=== PATIENT | male | born 1965 | race Caucasian/White ===

== ENCOUNTER 2020-02-17 11:19 | Emergency (ER) | payer OTHER, SELFPAY ==
--- NOTE | ~2020-02-17 | CT_ITS ---
EXAMINATION: CTA chest PE protocol DATE: 02/17/2020 12:25 INDICATION: Chest pain. Recent deep venous thrombosis. TECHNIQUE: Computed tomography angiography (CTA) of the chest was performed with 100 mL Omnipaque-350 intravenous contrast timed to evaluate the pulmonary arteries. Coronal maximum intensity projection 3D-reconstructions were created by the technologist. Automated exposure control and iterative reconst ruction technique were employed. Exam dose: 981.01 mGy-cm total exam DLP. COMPARISON: None. FINDINGS: There is diagnostic contrast enhancement of the pulmonary arteries and no evidence of pulmo nary embolism No hilar or mediastinal mass lesion or lymphadenopathy. No thoracic aortic aneurysm or dissection is evident. Normal heart size. No pericardial or pleural effusion. No pulmonary infiltrate or consolidation or pulmonary mass lesion. Incidentally noted are at least 2 calcified faceted up to 8.5 mm gallstones. No gallbladder wall thic kening or distention or pericholecystic fluid or inflammation is noted. No bile duct dilatation is ev ident. Included upper abdominal structures are otherwise unremarkable. Prominent bilateral osteoarthritic changes at the glenohumeral joints. Degenerative spurring of the cervical and thoracic spine. IMPRESSION: No evidence of pulmonary embolism Cholelithiasis Reviewed, dictated and finalized at [facility]. Reviewed, dictated and finalized at [facility].
[2020-02-17 11:26] VITALS: BP 153/104; PULSE 87; RESP 18; O2SAT 97
--- NOTE | 2020-02-17 11:26 | ECG_ITS ---
Measurements Intervals [place] Rate: 86 P: 42 MA: 154 QRS: 54 QRSD: 88 T: 28 QT: 355 QTc: 425 Interpretive Statements SINUS RHYTHM BASELINE ARTIFACT- I, III, AVR, AVL NORMAL ECG Electronically Signed On 02-17-2020 12:06:16 CDT by Chaz Camacho D.O.
[2020-02-17 11:44] LABS: Basophils Absolute Auto 0.1 K/mm3 (0.0-0.1); Basophils Percent Auto 0.9 % (0.2-1.2); Eosinophils Absolute Auto 0.2 K/mm3 (0-0.3); Eosinophils Percent Auto 2.2 % (0-4.4); Hematocrit 47.9 % (42.0-52.0); Hemoglobin 15.5 g/dL (14.0-18.0); Immature Granulocyte Absolute 0.06 K/mm3 (0.00-0.031); Immature Granulocyte Percent A 0.6 % (0-0.5); Lymphocytes Absolute Auto 4.51 K/mm3 (0.9-3.2); Lymphocytes Percent Auto 42.1 % (18.3-44.2); Mean Corpuscular HGB Conc 32.4 g/dl (32-36); Mean Corpuscular Hemoglobin 29.1 pg (26-34); Mean Corpuscular Volume 89.9 fl (80-100); Mean Platelet Volume 10.6 fl (7.4-10.4); Monocytes Absolute Auto 0.8 K/mm3 (0.1-0.6); Monocytes Percent Auto 7.1 % (2.6-8.5); Neutrophils Absolute Auto 5.1 K/mm3 (1.3-6.7); Neutrophils Percent Auto 47.1 % (45.5-73.1); Platelet Count Result 325 k/mm3 (150-375); Red Blood Count 5.33 M/mm3 (4.6-6.20); Red Cell Distribution Width 13.9 % (11.5-14.5); White Blood Count 10.7 K/mm3 (4.5-10.0)
--- NOTE | 2020-02-17 11:46 | ED.CHESTPAIN ---
HPI - Chest Pain General Chief Complaint: Chest Pain Stated Complaint: SOB - chest tightness Time Seen by Provider: 02/17/20 11:38 History of Present Illness HPI narrative: Patient is a 55-year-old male who presents the ER with right-sided chest pain for the last 2 days. It sharp and constant. Radiates down to the right arm. Occasionally radiates to the right back. Has history of DVT. He is no longer on Xarelto as he completed the full therapy. He is not having any lower extremity swelling or calf pain. No exertional component to the chest pain. It actually improves if he takes a deep breath. No runny nose/sore throat/productive cough. No known mechanism of injury. Related Data Home Medications Medication Instructions Recorded Confirmed atorvastatin 02/17/20 Allergies Allergy/AdvReac Type Severity Reaction Status Date / Time morphine AdvReac Unknown Nausea Verified 02/17/20 11:30 Review of Systems Review of Systems: All systems reviewed & are unremarkable except as noted in HPI and below Constitutional: Constitutional: Denies chills and Denies fever(s) ENT: Denies nasal congestion and Denies sore throat Cardiovascular: Cardiovascular: Reports chest pain, Denies rapid heart rate and Reports radiating jaw, neck or arm pain Respiratory: Respiratory: Denies cough, Denies dyspnea and Denies wheezing Gastrointestinal: Gastrointestinal: Denies abdominal pain, Denies nausea and Denies vomiting Musculoskeletal: Musculoskeletal: Reports back pain and Denies muscle cramps PMFSH Past Medical History Medical History (Updated 02/17/20 @ 14:25 by Jareth Mae MD) Asthma Carpal tunnel syndrome DVT (deep venous thrombosis) Surgical History Surgical History (Updated 02/17/20 @ 14:20 by Jareth Mae MD) History of carpal tunnel release Social History Social History Smoking status: Light tobacco smoker Alcohol intake: current Exam Narrative: Exam Narrative: GENERAL: Well-appearing, well-nourished, and in no acute distress. HEAD: Normocephalic, atraumatic. ENT: Mucous membranes moist. CHEST: Clear to auscultation. No respiratory distress. Moderate tenderness right anterior chest wall midclavicular line. HEART: Regular rate and rhythm. Normal peripheral pulses. ABDOMEN: Soft, nontender, nondistended. EXTREMITIES: Normal range of motion. No edema. SKIN: Warm, dry, no rash. NEURO: Alert and oriented x3. Course Course Emergency Course: Patient informed of results. Mild improvement with Toradol. Troponin negative. No PE. Vital Signs Vital signs: Vital Signs Pulse Rate 87 02/17/20 11:26 Respiratory Rate 18 02/17/20 11:26 Blood Pressure 153/104 H 02/17/20 11:26 Pulse Oximetry 97 02/17/20 11:26 Pulse Rate 73 02/17/20 12:43 Respiratory Rate 16 02/17/20 12:43 Blood Pressure 144/86 H 02/17/20 12:43 Pulse Oximetry 98 02/17/20 12:43 MDM - Chest Pain Lab Data Result diagrams: 02/17/20 11:37 02/17/20 11:37 Labs: Lab Results 02/17/20 02/17/20 02/17/20 Range/Units 11:37 11:37 11:37 WBC 10.7 H (4.5-10.0) K/mm3 RBC 5.33 (4.6-6.20) M/mm3 Hgb 15.5 (14.0-18.0) g/dL Hct 47.9 (42.0-52.0) % MCV 89.9 (80-100) fl MCH 29.1 (26-34) pg MCHC 32.4 (32-36) g/dl RDW 13.9 (11.5-14.5) % Plt Count 325 (150-375) k/mm3 MPV 10.6 H (7.4-10.4) fl Immature Gran % (Auto) 0.6 H (0-0.5) % Neut % (Auto) 47.1 (45.5-73.1) % Lymph % (Auto) 42.1 (18.3-44.2) % [place] % (Auto) 7.1 (2.6-8.5) % Eos % (Auto) 2.2 (0-4.4) % Baso % (Auto) 0.9 (0.2-1.2) % Lymph # (Auto) 4.51 H (0.9-3.2) K/mm3 [place] # (Auto) 0.8 H (0.1-0.6) K/mm3 Eos # (Auto) 0.2 (0-0.3) K/mm3 Baso # (Auto) 0.1 (0.0-0.1) K/mm3 Abs Immat Gran (auto) 0.06 H (0.00-0.031) K/mm3 Absolute Neuts (auto) 5.1 (1.3-6.7) K/mm3 Absolute Nucleated RBC 0.0 (0.0-0.012) K/mm3 Nucleated RBC % 0
[2020-02-17 11:55] LABS: Blood Urea Nitrogen 21 mg/dL (9-20); Calcium 9.2 mg/dL (8.4-10.2); Carbon Dioxide 23 mmol/L (22-30); Chloride 107 mmol/L (98-107); Estimated CRCL calculation 114 ml/min; Estimated Glomerular Filt Rate > 60; Glucose 109 mg/dL (75-110); Sodium 139 mmol/L (137-145)
[2020-02-17 12:02] LABS: INR 0.9; Prothrombin Time 11.5 Seconds (11.1-14.7)
[2020-02-17 12:03] LABS: Partial Thromboplastin Time 25.4 SECONDS (22.3-36.8)
[2020-02-17 12:07] LABS: Troponin I < 0.012 ng/mL (0.000-0.034)
[2020-02-17 12:43] VITALS: BP 144/86; PULSE 73; RESP 16; O2SAT 98
[2020-02-17] MEDS: KETOROLAC 30 MG/ML VIAL (*BKC) IV PUSH (13:24)
[2020-02-17 14:33] VITALS: BP 171/97; PULSE 62; RESP 16; TEMP 36.4; O2SAT 100
== END 2020-02-17 14:41 | disposition home or self-care (01) ==
PROVIDERS: Emergency Provider Emergency Medicine; PCP Family Medicine
DX: R07.89 Other chest pain (principal); Z86.718 Personal history of other venous thrombosis and embolism; J45.909 Unspecified asthma, uncomplicated; F17.200 Nicotine dependence, unspecified, uncomplicated
CPT/HCPCS: 36415; 71275; 80048; 84484; 85025; 85610; 85730; 93005; 96374; 99284; J1885; Q9967

== ENCOUNTER 2020-02-27 07:31 | Outpatient (CLI) | payer OTHER, SELFPAY ==
--- NOTE | ~2020-02-27 | US_ITS ---
EXAMINATION: US right upper quadrant DATE: 02/27/2020 08:32 INDICATION: Cholecystitis TECHNIQUE: Multiple grayscale and Doppler ultrasound images of the abdomen were obtained. COMPARISON: 03/14/2019 FINDINGS: The pancreatic head and body are normal in appearance. The pancreatic tail is not visualized. Liver has normal contour, with a smooth surface. There is increased parenchymal echogenicity and coarsened echotexture consistent with diffuse hepatic steatosis. No liver lesion identified. No intrahepatic b iliary duct dilation suspected. Portal venous flow was seen in the hepatopetal, normal direction and has normal Doppler waveform. Visualized proximal inferior vena cava is normal. The gallbladder is nor mal in appearance. There are mobile shadowing gallstones in the dependent gallbladder. The common cristino e duct measures 8 mm, which is mildly dilated. Sonographic Teixeira sign was reported as positive by e practice professional. Visualized portion of the right kidney demonstrates normal contour and echogenicity wi th no hydronephrosis. IMPRESSION: 1. Cholelithiasis with positive Teixeira sign but normal-appearing gallbladder which is equivocal for a cute cholecystitis. Could consider HIDA scan for further evaluation. 2. Mildly dilated common bile duct which measures 8 mm which is new since prior CT. Could consider MR CP to assess for obstructing stone or mass at the nonvisualized distal common bile duct. 3. Diffuse hepatic steatosis. Reviewed, dictated and finalized at [facility]. IMPRESSION: 1. Cholelithiasis with positive Teixeira sign but normal-appearing gallbladder wh ich is equivocal for acute cholecystitis. Could consider HIDA scan for further evaluation. 2. Mildly dilated common bile duct which measures 8 mm which is new since prior CT. Could consider MRCP to assess for obstructing stone or mass at the nonvisu alized distal common bile duct. 3. Diffuse hepatic steatosis.
== END 2020-02-27 07:32 | disposition home or self-care (01) ==
LOC: ANHIMG 07:35
PROVIDERS: PCP Family Medicine; Visit Provider Physician Assistant
DX: K81.9 Cholecystitis, unspecified (principal); K80.20 Calculus of gallbladder without cholecystitis without obstruction; K76.0 Fatty (change of) liver, not elsewhere classified
CPT/HCPCS: 76705

== ENCOUNTER 2020-02-28 11:46 | Outpatient (CLI) | payer OTHER, SELFPAY ==
[2020-02-28 12:11] LABS: Alanine Aminotransferase 23 U/L (4-50); Albumin Level 4.6 g/dL (3.5-5.1); Alkaline Phosphatase 97 U/L (38-126); Aspartate Amino Transferase 27 U/L (17-59); Bilirubin,Total 0.9 mg/dL (0.2-1.3); Blood Urea Nitrogen 23 mg/dL (9-20); Calcium 9.7 mg/dL (8.4-10.2); Carbon Dioxide 26 mmol/L (22-30); Chloride 105 mmol/L (98-107); Estimated Glomerular Filt Rate > 60; Glucose 140 mg/dL (75-110); Lipase 62 U/L (23-300); Potassium 4.3 mmol/L (3.4-5.0); Sodium 138 mmol/L (137-145)
== END 2020-02-28 11:47 | disposition home or self-care (01) ==
PROVIDERS: PCP Family Medicine; Visit Provider Surgery
DX: K80.20 Calculus of gallbladder without cholecystitis without obstruction (principal)
CPT/HCPCS: 36415; 80053; 83690

== ENCOUNTER 2020-03-05 01:29 | Day surgery (SDC) | payer OTHER, SELFPAY ==
[2020-03-03 16:04] VITALS: BMI 41.5
[2020-03-05] VITALS (8 sets, daily range): BP systolic 127–156; BP diastolic 75–98; PULSE 63–74; RESP 14–18; TEMP 36.2–36.6; O2SAT 96–100
[2020-03-05] MEDS: LACTATED RINGERS 1,000 ML 30 ML IV CONT ×2 (10:30→13:47)
[2020-03-05 11:00] LABS: Amylase 60 U/L (30-110)
--- NOTE | 2020-03-05 11:12 | P.PNAN_ITS ---
Anes - Initial Pre Proc Eval Procedure: Operation Date: 03/05/20 12:00 Proposed Procedures p Laparoscopic Cholecystectomy with Intra Operative Cholangiograms, Possible Open - Gianni Santoyo MD Date/Time: 03/05/20 11:12 Surgeon: Gianni Santoyo MD Pre Op Diagnosis: chronic cholecystitis with cholelithiasis Patient Data Age: 55 Gender: M Height: 6 ft 1 in Weight: 142 kg Last Vital Signs Temp 36.6 C 03/05/20 11:04 Pulse 74 03/05/20 11:04 Resp 16 03/05/20 11:04 BP 132/83 03/05/20 11:04 Pulse Ox 96 03/05/20 11:04 Allergies Allergy/AdvReac Type Severity Reaction Status Date / Time morphine AdvReac Unknown Nausea Verified 03/04/20 09:01 Home Medications Medication Instructions Recorded Confirmed Type atorvastatin [Lipitor] 20 mg PO DAILY 02/17/20 03/04/20 History hydrocodone 7.5 mg-acetaminophen 1 tablet PO Q6H PRN #8 tablet 03/03/20 03/03/20 Rx 325 mg tablet Laboratory Tests 03/05/20 10:42 Amylase 60 U/L U/L (30-110) Patient hx anesthesia problems: none Family hx anesthesia problems: none PMFSH Past Medical History Medical History Asthma Carpal tunnel syndrome DVT (deep venous thrombosis) High cholesterol History of blood clots Surgical History Surgical History History of carpal tunnel release [place] teeth extracted Family History Family History Father Heart disease Mother Heart disease Sibling Cerebrovascular accident Social History Social History Smoking status: Former smoker Alcohol intake: current Substance use: never Gender identity (if verbalized by the patient): Male Anes - Eval Final PreProcedure Day of Procedure 03/05/20 11:12 Patient weight: morbidly obese Heart: regular rate and rhythm Lungs: clear to auscultation Airway: Mallampati scale class II Neurological: alert and oriented Last oral intake: >/= 8 hours ASA classification: III Anesthetic plan: proceed Anesthesia type and monitoring: general ETT and standard monitoring Informed Consent: The patient's anesthetic plan and its attendant risks and benefits were discussed with the patient/family/POA. Questions were solicited and answers provided to the satisfaction of the patient/family/POA.
--- NOTE | 2020-03-05 11:56 | WPDHPUPDATE1 ---
History and Physical Update Update Date/Time: 03/05/20 11:56 History and Physical has been reviewed, including an updated exam of the patient. There are NO changes in the patient's condition. Risks, benefits, and alternatives have been discussed and questions answered. Patient agrees to proceed with procedure.
[2020-03-05] MEDS: ceFAZolin 3 GM/D5W 100 ML 100 ML IVPB (12:37)
[2020-03-05] MEDS: BUPIVACAINE/EPINEPHRINE 0.5% 30 ML VIAL INFILTRATE (12:38)
--- NOTE | 2020-03-05 13:41 | P.OP_ITS ---
Procedure Note - Detailed Date of procedure: 03/05/20 Pre-op diagnosis: chronic cholecystitis with cholelithiasis Procedure performed: Laparoscopic cholecystectomy. Description of procedure: Procedure Details: Patient was seen preoperatively in the holding area and risks, benefits and alternatives confirmed. Patient was taken to the operating room and general anesthesia was induced. A time out was then preformed with the surgery team confirming patient and site of surgery. The abdomen was prepped and draped in the usual sterile fashion. Incision was made just below the umbilicus. Two stay sutures of O- Vicryl were used to elevate the mid-line fascia beneath the umbilicus and a small incision was made under direct vision. The peritoneum was entered. The 12 mm [place] cannula was introduced under direct vision. First under low flow and then under high flow the abdomen was insufflated with carbon dioxide never exceeding a pressure of 14. Three 5 mm trocars were then introduced under direct vision. The following trocars were introduced under direct vision: a 5 mm in the epigastrium and two 5 mm trocars along the right costal margin. There were a few adhesions of the omentum to the inferior side of the gallbladder that were taken down with blunt and sharp dissection. The gall bladder was grasped and the cystic duct and artery were dissected free and clipped with an 5 mm endo-clip air saw operator. Careful dissection revealed the window of safety and only 2 structures the cystic duct and cystic artery connecting the gallbladder to the more medial structures. The cystic duct was then transected. The cystic artery was also clipped x3 and transected at this point. The gall bladder was removed using electrocautery and then removed using a large 10 mm grasper via the umbilical incision. The trocars were removed visualizing hemostasis and the remaining gas evacuated. The large trocar site at the umbilicus was closed with an 0 vicryl figure of 8 suture. The 2 stay sutures mentioned above on either side of the fascia were also tied together to help approximate this midline fascia. Further local anesthetic was placed into each incision for postop pain control. The skin incisions were closed with a subcuticular of 4-0 Monocryl. Surgical glue then was applied to all the incisions. Patient tolerated the procedure well was taken to the recovery room in good condition. Anesthesia: GETA Surgeon: Gianni Santoyo MD Chief Wheelage Clerk: SILVIO Quan, OR speech language pathology assistant Estimated blood loss (mL): 10 Drains: No Packing: No Pathology: yes (The gallbladder) Complications: No immediate complications Condition: stable Disposition: PACU Findings: A few adhesions of the omentum to the gallbladder. Otherwise no severe inflammation.
[2020-03-05] MEDS: ONDANSETRON INJ 4 MG/2 ML VIAL IV PUSH (13:55)
[2020-03-05] MEDS: DEXAMETHASONE SOD PHOS INJ 4 MG/ML VIAL 12 MG IV PUSH (14:32)
--- NOTE | 2020-03-05 14:48 | SUR.PHASEI ---
1449 FRIEND MK EDMONDS.
== END 2020-03-05 15:54 | disposition home or self-care (01) ==
PROVIDERS: PCP Family Medicine; Visit Provider Surgery
PROC: 0FT44ZZ Resection of Gallbladder, Percutaneous Endoscopic Approach (ICD-10-PCS; CPT 47562; principal; 2020-03-05 12:00)
DX: K80.10 Calculus of gallbladder with chronic cholecystitis without obstruction (principal); E78.00 Pure hypercholesterolemia, unspecified; Z86.718 Personal history of other venous thrombosis and embolism; Z87.891 Personal history of nicotine dependence; E66.01 Morbid (severe) obesity due to excess calories; Z68.41 Body mass index [BMI] 40.0-44.9, adult
CPT/HCPCS: 47562; 36415; 82150; 88304; J0131; J0330; J0690; J1100; J1170; J1200; J2250; J2405; J2704; J3010; J7030; J7120

== ENCOUNTER 2020-07-23 12:30 | Outpatient (RCR) | payer OTHER, SELFPAY ==
--- NOTE | 2020-05-27 11:36 | PTOPEVAL ---
Thank you for referring Catalina Springer to [facility]. Please review, sign, date and return this plan of care HORACIO. Mr. Springer was evaluated today for OP physical therapy. Pt to be seen 2x week for 6 weeks. I agree with and certify that the following plan of care is medically necessary. Referring Physician Date Admitting Provider: Attending Provider: Lg Wright, MD Referring Provider: *PT Outpatient Evaluation Start: 05/27/20 10:28 Freq: Status: Active Protocol: Document 05/27/20 10:28 TLM (Rec: 05/27/20 11:13 TLM [email or web address]) Therapy Assessment Status Assessment Status Assessment Status Evaluation Outpatient Past Medical History Past Medical History No Past Medical/Surgical History Patient/Family Denies Significant Past Medical/ Surgical History Source of Past Medical History Patient Cardiovascular History Hx Hypercholesterolemia Yes Respiratory History Gastrointestinal History Hx Gastroesophageal Reflux Disease Yes Genitourinary History Hx Genitourinary Disorders No Significant History Musculoskeletal History Hx Orthopedic Surgery Yes: LEFT CTR Evaluation Information Problem Diagnosis s/p R TKA Onset 04/28/20 Additional Evaluation Detail Pt returned to MD for follow up on 05/26/20. States everything looked good. Had 3 visits of HH, last visit 2 weeks ago. Was using a P/AROM bike when at home for 3 weeks. Stopped using cane a week ago . Released to drive yesterday. Weaning himself off of pain medication. Reports difficulty and pain with L LE as well and plans to have surgery for it once he has finished rehab for R TKA. Subjective Information Pt reports difficulty with Query Text:As Reported By Patient/ housework, hobbies, ambulating Family , putting on shoes/socks, lifting objects from the floor , getting in/out of car/bed, standing greater than 1 hour, transitioning sit<>stand, and navigating stairs. Diagnostic Tests X-Rays For This Problem Yes Prior Level of Function Home Setting Home Type House,Multiple Levels Environmental Barriers Railing, Ascend Right,Stairs, 2-4 Living Situation With Rela
--- NOTE | 2020-06-22 13:24 | PTOPEVAL ---
Thank you for referring Catalina Springer to [facility].? Pt has been seen for 8 therapy visits to address impairments related to s/p right TKR. He is progressing towards his therapy goals. The patient is scheduled to be seen for therapy? 2 x/week for 3-4 weeks. Please review, sign, date and return this plan of care HORACIO. I agree with and certify that the following plan of care is medically necessary. Referring Physician Date Admitting Provider: Attending Provider: Lg Wright, Physical Therapy Progress Note *PT Outpatient Evaluation Start: 05/27/20 10:28 Freq: Status: Active Protocol: Document 06/22/20 10:58 CAP (Rec: 06/22/20 11:56 TAHMINA [email or web address]) Therapy Assessment Status Assessment Status Assessment Status Re-evaluation Outpatient Past Medical History Past Medical History No Past Medical/Surgical History Patient/Family Denies Significant Past Medical/ Surgical History Source of Past Medical History Patient Evaluation Information Problem Diagnosis s/p R TKA Onset 04/28/20 Additional Evaluation Detail Pt returned to MD for follow up on 05/26/20. States everything looked good. Had 3 visits of , last visit 2 weeks ago. Was using a P/AROM bike when at home for 3 weeks. Reports difficulty and pain with L LE as well and plans to have surgery for it once he has finished rehab for R TKA. Subjective Information Reports his heels are painful Query Text:As Reported By Patient/ due to bone spurs. He reports Family improved performance with walking, donning shoes and socks and negotiating steps. States his left knee and heel are more painful than his right knee. Reports improved ability with getting in/out of car/bed. He is consistently performing his HEP 4-5x/wk. Pain Assessment Timing of Pain Assessment Timing of Pain Assessment Re-assessment Pain Scale Pain Scale Used Numeric (1 - 10) Self Report Pain Assessment Right Knee(s) Reported Pain Level 2 Pain Description Aching,Dull Pain Frequency Continuous Greatest Pain Intensity 3 Pain Relief Interventions Used By Ice Patient Pain Score Pain Score 2: Self Report
--- NOTE | 2020-07-08 11:58 | PTOPEVAL ---
Thank you for referring Catalina Springer to [facility].? The patient is scheduled to be seen for therapy? 2 x/week for 2 weeks. Please review, sign, date and return this plan of care HORACIO. I agree with and certify that the following plan of care is medically necessary. Referring Physician Date Attending Provider: Lg Wright, MD Referring Provider: Physical Therapy Progress Note *PT Outpatient Evaluation Start: 05/27/20 10:28 Freq: Status: Active Protocol: Document 07/08/20 11:00 TAHMINA (Rec: 07/08/20 11:47 TAHMINA [email or web address]) Therapy Assessment Status Assessment Status Assessment Status Re-evaluation Outpatient Past Medical History Past Medical History No Past Medical/Surgical History Patient/Family Denies Significant Past Medical/ Surgical History Source of Past Medical History Patient Evaluation Information Problem Diagnosis s/p R TKA Onset 04/28/20 Subjective Information He reports improved Query Text:As Reported By Patient/ performance with walking, Family donning shoes and socks and negotiating steps. States his left knee and heel are more painful than his right knee. Denies any problems with right LE for getting in/out of car/ bed. Reports more difficulty with daily task due to left knee. He is consistently performing his HEP 4-5x/wk. Pain Assessment Timing of Pain Assessment Timing of Pain Assessment Re-assessment Pain Scale Pain Scale Used Numeric (1 - 10) Self Report Pain Assessment Right Knee(s) Reported Pain Level 1 Pain Description Tightness Lowest Pain Intensity 1 Greatest Pain Intensity 3 Pain Aggravating Factors Stair Climbing Pain Score Pain Score 1: Self Report Lower Extremity Range of Motion Knee Range of Motion Right Knee Flexion Range of Motion - Active 98 Knee Extension Range of Motion - Active -7 Query Text: Knee Range of Motion Limitations Edema,Pain,Soft Tissue Restriction Knee Range of Motion Comments measured in supine Lower Extremity Muscle Strength Testing Hip Strength Right Hip Flexion Strength 5 Normal Hip Extension Strength 5 Normal Hip Abduction Strength 4- Good - Knee Strength Right Knee Flexion Strength 4 Good Knee Extension Strength 5 Normal Muscle Length Testing Muscle Length Testing Two-[place]
--- NOTE | 2020-07-14 12:51 | PCPTNOTE ---
Patient called & cancelled scheduled appointment this date due to hurting his back.
--- NOTE | 2020-07-23 14:37 | PTOPEVAL ---
Thank you for referring Catalina Springer to [facility] [place].? Pt has reached maximal potential with skilled therapy services to address his right knee impairments. Will hold chart open for 30 days for possible return to outpatient therapy following his left knee surgery. Please review, sign, date and return this plan of care HORACIO. I agree with and certify that the following plan of care is medically necessary. Referring Physician Date Attending Provider: Lg Wright, MD Referring Provider: *PT Outpatient Evaluation Start: 05/27/20 10:28 Freq: Status: Active Protocol: Document 07/23/20 12:27 CAP (Rec: 07/23/20 13:23 CAP [email or web address]) Therapy Assessment Status Assessment Status Assessment Status Re-evaluation/ Discharge Note Outpatient Past Medical History Past Medical History No Past Medical/Surgical History Patient/Family Denies Significant Past Medical/ Surgical History Source of Past Medical History Patient Evaluation Information Problem Diagnosis s/p R TKA Onset 04/28/20 Additional Evaluation Detail Pt returned to MD for follow up on 05/26/20. States everything looked good. Had 3 visits of HH, last visit 2 weeks ago. Was using a P/AROM bike when at home for 3 weeks. Reports difficulty and pain with L LE as well and plans to have surgery for it once he has finished rehab for R TKA. Subjective Information He reports only minimal pain Query Text:As Reported By Patient/ of the right knee that never Family completely goes to 0/10. He denies problems with walking, ADL's or steps. He has pain during therapy when attempting to push the knee range. ing steps. States his left knee and right heel are more painful than his right knee. He is consistently performing his HEP 4-5x/wk. Pain Assessment Timing of Pain Assessment Timing of Pain Assessment Re-assessment Pain Scale Pain Scale Used Numeric (1 - 10) Self Report Pain Assessment Right Knee(s) Reported Pain Level 1 Pain Description Tightness Lowest Pain Intensity 1 Greatest Pain Intensity 3 Pain Score Pain Score 1: Self Report Lower Extremity Range of Motion Knee Range of Motion Left Knee Flexion Range of Motion
--- NOTE | 2020-08-24 08:14 | PCPTNOTE ---
This treatment is being continued on visit number 1 on [id number]. Please see documentation on both accounts to view progress. Completed interventions, outcomes, and problems have been marked as Inactive to facilitate the copying of the Care plan routine for recurring accounts.
== END 2020-08-23 13:50 | disposition home or self-care (01) ==
LOC: ANHPT 12:30
PROVIDERS: PCP Family Medicine; Visit Provider Orthopaedic Surgery Adult Reconstructive Orthopaedic Surgery
DX: Z47.1 Aftercare following joint replacement surgery (principal); Z96.651 Presence of right artificial knee joint
CPT/HCPCS: 97110; 97112; 97140; 97161; 97530

== ENCOUNTER 2020-11-12 10:00 | Outpatient (RCR) | payer OTHER, SELFPAY ==
--- NOTE | 2020-09-17 10:08 | PTOPEVAL ---
Thank you for referring Catalina Springer to [facility] [place].? The patient is scheduled to be seen for therapy? 2-3 x/week for 5 weeks. Please review, sign, date and return this plan of care HORACIO. I agree with and certify that the following plan of care is medically necessary. Referring Physician Date Attending Provider: Lg Wright, MD Referring Provider: *PT Outpatient Evaluation Start: 08/24/20 08:22 Freq: Status: Active Protocol: Document 09/17/20 09:00 TAHMINA (Rec: 09/17/20 09:57 CAP [email or web address]) Therapy Assessment Status Assessment Status Assessment Status Evaluation Outpatient Past Medical History Past Medical History No Past Medical/Surgical History Patient/Family Denies Significant Past Medical/ Surgical History Source of Past Medical History Patient Evaluation Information Problem Diagnosis left TKR Onset 08/04/20 Additional Evaluation Detail medical history: right TKR: 04/28/20 Back pain with bulging disc, COVID, obesity Subjective Information Reports he is not recovering Query Text:As Reported By Patient/ as quickly as with the right Family knee. He had COVID and was not able to perform his exercises. He report the left leg feels like it wants to give out at time. He feels like he is behind because he missed therapy for 3 wk. C/o left knee being stiff. Reports difficulty and fear with negotiating steps. Difficulty with squating, walking longer distances, prolonged standing. He is not using ice as consistently as initially. Pain Assessment Timing of Pain Assessment Timing of Pain Assessment Assessment Pain Scale Pain Scale Used Numeric (1 - 10) Self Report Pain Assessment Left Knee(s) Reported Pain Level 5 Pain Description Aching,Tingling Pain Frequency Continuous Lowest Pain Intensity 4 Greatest Pain Intensity 6 Pain Aggravating Factors Bending,Prolonged Position, Stair Climbing,Walking,Weight Bearing/Standing Pain Score Pain Score 5: Self Report Interventions Used Interventions Used By Clinicians Exercise Lower Extremity Range of Motion
--- NOTE | 2020-09-20 11:12 | PCPTNOTE ---
Patient called & cancelled scheduled appointment this date due to sicking and vomiting.
--- NOTE | 2020-10-18 15:28 | PTOPEVAL ---
Thank you for referring Catalina Springer to [facility].? The patient is scheduled to be seen for therapy 2 -3 x/week for 3 weeks. Please review, sign, date and return this plan of care HORACIO. I agree with and certify that the following plan of care is medically necessary. Referring Physician Date Attending Provider: Lg Wright, *PT Outpatient Evaluation Start: 08/24/20 08:22 Freq: Status: Active Protocol: Document 10/18/20 08:59 TAHMINA (Rec: 10/18/20 09:58 TAHMINA [id number]) Therapy Assessment Status Assessment Status Assessment Status Re-evaluation Outpatient Past Medical History Past Medical History No Past Medical/Surgical History Patient/Family Denies Significant Past Medical/ Surgical History Source of Past Medical History Patient Evaluation Information Problem Diagnosis left TKR Onset 08/04/20 Additional Evaluation Detail medical history: right TKR: 04/28/20 Back pain with bulging disc, COVID, obesity Subjective Information He does ice with increased Query Text:As Reported By Patient/ activities of standing and Family walking due to increased swelling. He is unsure if he is walking better,but his familty notices improved walking pattern and ability. He is more aware of decreasing his walking deviations. He denies the left leg feels like it wants to give out at time. He feels like he is behind because he missed therapy for 3 wk. He cont to C /o left knee being stiff. Denies any problems ascending steps, but cont problem with descending steps. He reports mild ifficulty with squating, walking longer distances, prolonged standing. Pain Assessment Timing of Pain Assessment Timing of Pain Assessment Re-assessment Pain Scale Pain Scale Used Numeric (1 - 10) Self Report Pain Assessment Left Knee(s) Reported Pain Level 2 Pain Description Tightness Pain Frequency Continuous Lowest Pain Intensity 2 Greatest Pain Intensity 4 Pain Score Pain Score 2: Self R
--- NOTE | 2020-11-12 10:52 | PTOPEVAL ---
Thank you for referring Catlaina Springer to [facility][Note 3].? Pt has received 16 therapy visits to address his left knee impairments. He has reached maximal potential with skilled therapy services at this time. Goals are partially achieved. DC skilled therapy services at this time. Please review, sign, date and return this plan of care HORACIO. I agree with and certify that the following plan of care is medically necessary. Referring Physician Date Attending Provider: Lg Wright, *PT Outpatient Evaluation Start: 08/24/20 08:22 Freq: Status: Active Protocol: Document 11/12/20 09:57 CAP (Rec: 11/12/20 10:33 CAP [id number]) Therapy Assessment Status Assessment Status Assessment Status Re-evaluation/Discharge Note Outpatient Past Medical History Past Medical History No Past Medical/Surgical History Patient/Family Denies Significant Past Medical/ Surgical History Source of Past Medical History Patient Evaluation Information Problem Diagnosis left TKR Onset 08/04/20 Additional Evaluation Detail medical history: right TKR: 04/28/20 Back pain with bulging disc, COVID, obesity Subjective Information He continues to report Query Text:As Reported By Patient/ limitations with prolonged Family standing. He contiues to c/o knee stiffness and tightness. Denies knee feeling like it is going to give out. Denies any problems negotiating steps. Reports tightness of knee with squating. Pain Assessment Timing of Pain Assessment Timing of Pain Assessment Re-assessment Pain Scale Pain Scale Used Numeric (1 - 10) Self Report Pain Assessment Left Knee(s) Reported Pain Level 2 Pain Description Aching,Tightness Pain Frequency Continuous Lowest Pain Intensity 2 Greatest Pain Intensity 2 Pain Aggravating Factors Weight Bearing/Standing Pain Behaviors None Pain Score Pain Score 2: Self Report Interventions Used Interventions Used By Clinicians Exercise Pain Relief Interventions Used By Exercise Patient Lower Extremity Range of Motion Knee Range of Motion Right Knee Flexion Range of Motion - Active 102 Knee Extension Range of Motion - Active -2 Query Text: Left Knee Flexion Range of Motion - Active 95 Knee Extension Range of Motion - Active -4 Query Text: Knee Range of Motion Limitat
== END 2020-11-15 13:36 | disposition home or self-care (01) ==
LOC: ANHPT 10:00
PROVIDERS: PCP Family Medicine; Visit Provider Orthopaedic Surgery Adult Reconstructive Orthopaedic Surgery
DX: Z47.1 Aftercare following joint replacement surgery (principal); Z96.652 Presence of left artificial knee joint
CPT/HCPCS: 97014; 97110; 97112; 97116; 97140; 97162; 97530; G0283

== ENCOUNTER 2021-07-19 14:32 | Emergency (ER) | payer OTHER, SELFPAY ==
[2021-07-19 14:35] VITALS: BP 147/90; PULSE 100; RESP 18; TEMP 36.5; O2SAT 98
--- NOTE | 2021-07-19 14:43 | ED.SKABFB ---
HPI - Skin/Abscess/Foreign Bdy General Stated complaint: pos spider bite Source: patient Mode of arrival: ambulatory Limitations: no limitations History of Present Illness HPI narrative: Patient is a 56-year-old male who presents complaining of possible insect bite to left arm. He reports area of redness x1 day. Reports warm, pain and tenderness. He denies injuries. He denies taking [id number]-fjqmxus medications prior to arrival. Patient has no significant medical history. Patient believes he may have been bit by a spider, however, did not see what he was bit by. MD complaint: insect bite/sting Related Data Home Medications Medication Instructions Recorded Confirmed atorvastatin [Lipitor] 20 mg PO DAILY 02/17/20 03/19/20 Allergies Allergy/AdvReac Type Severity Reaction Status Date / Time morphine AdvReac Unknown Nausea Verified 03/19/20 08:05 Review of Systems Review of Systems: CONSTITUTIONAL: Denies fever, chills, or sweats. EYES: Denies visual changes, redness, or discharge. ENT: Denies rhinorrhea, congestion, sore throat, or otalgia. CARDIOVASCULAR: Denies chest pain, palpitations, or edema. RESPIRATORY: Denies cough or dyspnea. GASTROINTESTINAL: Denies abdominal pain, nausea, vomiting, or diarrhea. GENITOURINARY: Denies dysuria or hematuria. SKIN: Insect bite to left forearm MUSCULOSKELETAL: Denies back pain, joint pain, or myalgia. NEUROLOGIC: Denies headache, numbness, dizziness, or weakness. PSYCHIATRIC: Denies anxiety or depression. [facility] Past Medical History Medical History (Updated 07/19/21 @ 14:49 by CARLEEN Banuelos) Asthma Carpal tunnel syndrome DVT (deep venous thrombosis) High cholesterol History of blood clots Surgical History Surgical History History of carpal tunnel release [place] teeth extracted Family History Family History Father Heart disease Mother Heart disease Sibling Cerebrovascular accident Social History Social History Smoking status: Former smoker Alcohol intake: current Substance use: never Gender identity (if verbalized by the patient): Male Comments At the time of signature, I have reviewed and agree with nursing past medical, surgical, social, and family history unless otherwise noted. Please see nursing chart for further information. There is no relevant family history pertinent to the presenting complaint. Exam Narrative: GENERAL: Well-appearing, well-nourished, and in no acute distress. HEAD: Normocephalic, atraumatic. EYES: EOMI. No redness or drainage. Conjunctiva are normal. ENT: Mucous membranes pink and moist. CHEST: No respiratory distress. Clear to auscultation. HEART: Regular rate and rhythm. No murmur appreciated. Normal peripheral pulses. GI: Soft, nontender without rebound, or guarding. No distention. Bowel sounds normal in all quadrants. MUSCULOSKELETAL: No bony tenderness. EXTREMITIES: Normal range of motion. No edema. SKIN: 6 x 4 cm area of erythema, warmth and tenderness to left AC. Possible puncture wound from sting. NEURO: No focal deficits. Alert and oriented x3. Gait steady. PSYCH: Normal affect. No signs of depression or anxiety. MDM - Skin/Abscess/Foreign Bdy MDM Narrative Medical decision making narrative: Patient has area of possible cellulitis to left forearm/AC. Patient be started on antibiotics at this time. Discussed with patient to watch area of redness and monitor for improvement as patient has history of DVT in the past. Patient agrees with plan of care. Patient is aware of red flags and warning signs and when to seek further assistance in the emergency department. Patient is stable for discharge home with outpatient follow-up as discussed. Differential Diagnosis Differential diagnosis: Likely abscess of skin or subcutaneous tissue, ce
== END 2021-07-19 14:58 | disposition home or self-care (01) ==
PROVIDERS: Emergency Provider Nurse Practitioner; PCP Family Medicine
DX: L03.114 Cellulitis of left upper limb (principal); Z87.891 Personal history of nicotine dependence
CPT/HCPCS: 99213; G0463

== ENCOUNTER 2021-11-23 10:44 | Emergency (ER) | payer OTHER, SELFPAY ==
--- NOTE | ~2021-11-23 | US_ITS ---
EXAMINATION: US venous doppler LE RT DATE: 11/23/2021 11:48 INDICATION: Right lower limb pain and swelling. TECHNIQUE: Grayscale ultrasound images without and with compression and Doppler ultrasound images of the right lower extremity veins were obtained. COMPARISON: None. FINDINGS: The visualized portions of right common femoral vein, profunda (deep) femoral vein, peroneal veins, p osterior tibial veins, and greater saphenous vein outflow are patent. There is thrombus in right femo ral vein, popliteal vein, and gastrocnemius and soleus veins. There is thrombus in the lesser sapheno us vein. IMPRESSION: 1. Deep vein thrombosis involving right femoral vein, popliteal vein, and gastrocnemius and soleus v eins. I called this result to Dr. Zhang. 2. Superficial vein thrombosis involving lesser saphenous vein. Reviewed, dictated and finalized at location A. DRILL OPERATOR IMPRESSION: 1. Deep vein thrombosis involving right femoral vein, popliteal vein, and fermin rocnemius and soleus veins. I called this result to Dr. Zhang. 2. Superficial vein thrombosis involving lesser saphenous vein.
[2021-11-23 10:48] VITALS: BP 171/88; PULSE 102; RESP 18; TEMP 35.8; O2SAT 99
[2021-11-23 11:07] VITALS: BP 152/93; PULSE 96; RESP 18; O2SAT 98
--- NOTE | 2021-11-23 11:22 | ED.EXTPRO ---
HPI - Extremity Problem General Chief complaint: Extremity Problem,Nontraumatic Stated complaint: right leg pain Time Seen by Provider: 11/23/21 11:07 Source: patient and old records reviewed Limitations: no limitations History of Present Illness HPI Narrative: 56-year-old male with history of right lower extremity DVT presents to the emergency department for evaluation of right lower extremity pain and swelling. Patient states about 2 years ago he did have a DVT and had been on a blood thinner for approximately 1 year. Patient did have knee replacements and patient has since stopped taking the blood thinners. Patient states approximately 3 to 4 days ago he had onset of lower extremity pain and swelling. Patient denies any known injury. Patient states he was helping someone move some furniture and may have strained it but is unaware of a specific injury. Patient denies any associated chest pain or shortness of breath. Related Data Home Medications Medication Instructions Recorded Confirmed atorvastatin [Lipitor] 20 mg PO DAILY 02/17/20 07/19/21 albuterol sulfate 90 mcg INHALATION PRN PRN 07/19/21 07/19/21 Allergies Allergy/AdvReac Type Severity Reaction Status Date / Time No Known Allergies Allergy Verified 07/19/21 15:37 Review of Systems Review of Systems: CONSTITUTIONAL: Denies fever, chills, or sweats. EYES: Denies visual changes, redness, or discharge. ENT: Denies rhinorrhea, congestion, sore throat, or otalgia. CARDIOVASCULAR: Denies chest pain, palpitations, or edema. RESPIRATORY: Denies cough or dyspnea. GASTROINTESTINAL: Denies abdominal pain, nausea, vomiting, or diarrhea. GENITOURINARY: Denies dysuria or hematuria. SKIN: Petechia on left lower extremity. Swelling of right lower extremity with pain MUSCULOSKELETAL: Denies back pain, joint pain, or myalgia. [facility] Past Medical History Medical History (Updated 11/23/21 @ 12:53 by Gagan Zhang MD) Asthma Carpal tunnel syndrome DVT (deep venous thrombosis) High cholesterol History of blood clots Surgical History Surgical History History of carpal tunnel release [place] teeth extracted Family History Family History Father Heart disease Mother Heart disease Sibling Cerebrovascular accident Social History Social History Smoking status: Former smoker Alcohol intake: current Substance use: never Gender identity (if verbalized by the patient): Male Exam Narrative: APPEARANCE: Well appearing, no pain, no distress, well-nourished. HEAD: normocephalic, atraumatic. NECK: Supple. No adenopathy, no masses. RESPIRATORY: Airway patent, respirations nonlabored. Clear to auscultation bilaterally, no rales, rhonchi, wheezing. CARDIOVASCULAR: Regular rate and rhythm without murmurs rubs or gallops. ABDOMINAL: Soft, nontender, nondistended, normal bowel sounds MUSCULOSKELETAL: Moves all extremities. Strength/ROM intact. Redness behind right knee with some right calf tenderness and swelling. Not cellulitic in appearance. NEURO: Alert. Cranial nerves II through XII intact. SKIN: Warm, dry. Normal Color Course Course Emergency Course: Patient was updated on the plan for ultrasound. Patient previous prescription of Xarelto was confirmed from the pharmacy. Patient tolerated Xarelto well before so he was restarted on this. Patient was given a first dose of Xarelto emergency permit. Patient was also discharged with a Xarelto pack. All questions and concerns were addressed. Patient was encouraged to have close follow-up with his primary care physician. Patient was also advised that he may need additional blood testing since this is his second DVT. Prior to discharge patient continues to deny any chest pain or shortness of breath. Vital Signs Vital signs: Vital Signs Tem
[2021-11-23] MEDS: RIVAROXABAN 15 MG TABLET PO (13:24)
== END 2021-11-23 13:34 | disposition home or self-care (01) ==
PROVIDERS: Emergency Provider Emergency Medicine; PCP Family Medicine
DX: I82.411 Acute embolism and thrombosis of right femoral vein (principal); I82.431 Acute embolism and thrombosis of right popliteal vein; I82.461 Acute embolism and thrombosis of right calf muscular vein; I82.491 Acute embolism and thrombosis of other specified deep vein of right lower extremity; I82.811 Embolism and thrombosis of superficial veins of right lower extremity; J45.909 Unspecified asthma, uncomplicated; E78.00 Pure hypercholesterolemia, unspecified; Z86.718 Personal history of other venous thrombosis and embolism; Z87.891 Personal history of nicotine dependence; Z96.659 Presence of unspecified artificial knee joint
CPT/HCPCS: 93971; 99284; A9270

== ENCOUNTER 2022-02-10 08:41 | Outpatient (CLI) | payer OTHER, SELFPAY ==
--- NOTE | ~2022-02-10 | XR_ITS ---
EXAMINATION: XR ankle LT min 3V EXAM DATE: 02/10/2022 09:26 INDICATION: Chronic low back pain, left ankle pain. TECHNIQUE: Left ankle frontal, lateral and oblique projections obtained and reviewed. There is no pr ior study for comparison. FINDINGS: The left ankle mortise appears intact. Moderate polyarticular ankle, subtalar, tarsal os teoarthritis. There are no acute fractures or dislocations identified. There is no subcutaneous gas. The soft tissue is unremarkable. There are no radiopaque foreign bodies. IMPRESSION: Moderate left ankle, hind and midfoot polyarticular osteoarthritis, rather advanced for p atient's age. No acute findings. Reviewed, dictated and finalized at location B. IMPRESSION: Moderate left ankle, hind and midfoot polyarticular osteoarthritis, rather advanced for patient's age. No acute findings.
--- NOTE | ~2022-02-10 | XR_ITS ---
EXAMINATION: XR lumbar spine 2-3V EXAM DATE: 02/10/2022 09:26 INDICATION: Chronic low back pain, ankle pain. TECHNIQUE: Lumber spine frontal, lateral, lateral L5-S1 projections for interpretation. There is no prior study for comparison. FINDINGS: There is moderate disc disease L3-S1. There is moderate mid, moderate to severe lower lumb ar facet arthropathy. Small endplate osteophytes. No appreciable subluxations. Vertebral body heights are maintained. There are cholecystectomy clips. Paraspinal soft tissue is unremarkable. Sacrum, sac roiliac joints, sacral arcuate lines are intact. There is evidence of moderate probable moderate neur al foraminal stenosis at L4-5 and L5-S1. IMPRESSION: 1. Moderate L3-S1 disc disease. 2. Moderate to severe facet arthropathy. Reviewed, dictated and finalized at location B.
== END 2022-02-10 08:42 | disposition home or self-care (01) ==
PROVIDERS: PCP Family Medicine; Visit Provider Physician Assistant
DX: M54.50 Low back pain, unspecified (principal); M51.9 Unspecified thoracic, thoracolumbar and lumbosacral intervertebral disc disorder; M12.88 Other specific arthropathies, not elsewhere classified, other specified site; M19.072 Primary osteoarthritis, left ankle and foot
CPT/HCPCS: 72100; 73610

== ENCOUNTER → 2022-05-18 08:39 | Outpatient (CLI) | payer SELFPAY ==
--- NOTE | ~2022-05-18 | CT_ITS ---
EXAMINATION: CT abdomen pelvis w con DATE: 05/18/2022 09:13 INDICATION: Left lower quadrant and suprapubic pain TECHNIQUE: Computed tomography (CT) of the abdomen and pelvis was performed with 100 CC Omnipaque 350 intravenous contrast. Automated exposure control and iterative reconstruction technique were employe d. Exam dose: 1205.34 mGy-cm total exam DLP. COMPARISON: 02/27/2020 right upper quadrant abdominal ultrasound examination 03/14/2019 CT abdomen FINDINGS: The lung bases are clear. Normal heart size. No pericardial or pleural effusion. Diffuse hepatic steatosis. No hepatic, splenic, pancreatic or adrenal space-occupying mass lesion is detected. Status post cholecystectomy. No bile duct or pancreatic duct dilatation. Stable small cysts at the posterolateral aspect of the upper pole of each kidney, not significantly c hanged since 03/14/2019, benign. No interval renal mass lesion or any urinary tract calculus or hydrou reteronephrosis is noted. The urinary bladder is relatively evacuated. The prostate is unremarkable. There is thickening of the wall of the sigmoid colon. There are multiple sigmoid diverticula divertic donna of the descending colon. Multiple small pericolic lymph nodes are noted in the sigmoid region. No bowel obstruction or intraperitoneal free air. No evidence of appendicitis. Normal caliber of the abdominal aorta. No intraperitoneal or retroperitoneal or pelvic mass lesion or adenopathy or ascites. Degenerative changes of the thoracic and lumbar spine. Bilateral hip osteoarthritis. No suspicious os teolytic or osteoblastic lesions are noted. IMPRESSION: Hepatic steatosis Status post cholecystectomy Small bilateral renal cysts Thickening of the wall the sigmoid colon and multiple sigmoid and descending colon diverticula. Chron ic pericolic lymph nodes are again noted, measuring up to approximately 13 mm maximal dimension. Thes e may be secondary to inflammatory or infectious change but metastatic lymph nodes are not excluded. Reviewed, dictated and finalized at Location A. Reviewed, dictated and finalized at location B. IMPRESSION: Hepatic steatosis Status post cholecystectomy Small bilateral renal cysts Thickening of the wall the sigmoid colon and multiple sigmoid and descending co ashely diverticula. Chronic pericolic lymph nodes are again noted, measuring up to approximately 13 mm maximal dimension. These may be secondary to inflammatory or infectious change but metastatic lymph nodes are not excluded.
[2022-05-23 10:29] LABS: Estimated Glomerular Filt Rate > 60
== END ==
PROVIDERS: PCP Family Medicine; Visit Provider Nurse Practitioner
DX: R10.2 Pelvic and perineal pain (principal); R10.32 Left lower quadrant pain; K76.0 Fatty (change of) liver, not elsewhere classified; Z90.49 Acquired absence of other specified parts of digestive tract; N28.1 Cyst of kidney, acquired; R93.3 Abnormal findings on diagnostic imaging of other parts of digestive tract; R59.0 Localized enlarged lymph nodes
CPT/HCPCS: 36415; 74177; 82565; Q9967

== ENCOUNTER 2022-06-23 00:30 | Day surgery (SDC) | payer OTHER, SELFPAY ==
[2022-06-07 11:11] VITALS: BMI 41.5
[2022-06-23 11:28] VITALS: BP 144/75; PULSE 84; RESP 18; TEMP 36.2; O2SAT 99
[2022-06-23] MEDS: LACTATED RINGERS 1,000 ML 150 ML IV CONT (11:40)
--- NOTE | 2022-06-23 11:57 | P.PNAN_ITS ---
Anes - Initial Pre Proc Eval Procedure: Operation Date: 06/23/22 12:30 Proposed Procedures p Colonoscopy - Issac Minor MD Date/Time: 06/23/22 11:57 Surgeon: Issac Minor MD Pre Op Diagnosis: hematochezia, change in bowel habits Patient Data Age: 57 Gender: M Height: 1.85 m Weight: 145 kg Last Vital Signs Temp 97.2 F L 06/23/22 11:28 Pulse 84 06/23/22 11:28 Resp 18 06/23/22 11:28 BP 144/75 H 06/23/22 11:28 Pulse Ox 99 06/23/22 11:28 O2 Del Method Room Air 06/23/22 11:28 Allergies Allergy/AdvReac Type Severity Reaction Status Date / Time No Known Allergies Allergy Verified 06/23/22 11:19 Home Medications Medication Instructions Recorded Confirmed Type cholestyramine (with sugar) 4 gram 4 g PO BID #378 grams 05/10/22 06/23/22 Rx oral powder (Questran) atorvastatin 40 mg tablet 40 mg PO DAILY 06/07/22 06/23/22 History rivaroxaban 15 mg (42)-20 mg (9) 20 ea PO DAILY 06/07/22 06/23/22 History tablets in a starter pack (Xarelto DVT-PE Treatment 30-Day Starter) liraglutide 0.6 mg/0.1 mL (18 mg/3 1.8 mg subcut DAILY 06/23/22 06/23/22 History mL) subcutaneous pen injector (Victoza 3-Jude) Patient hx anesthesia problems: none Family hx anesthesia problems: none Results Review: All pre-operative results and documents have been reviewed as part of the pre- operative evaluation. [facility] Past Medical History Medical History (Updated 06/23/22 @ 11:58 by Issac Minor MD) Asthma Carpal tunnel syndrome DVT (deep venous thrombosis) Hematochezia High cholesterol History of blood clots Left lower quadrant pain Loose stools Suprapubic pain Surgical History Surgical History History of carpal tunnel release [place] teeth extracted Family History Family History Father Heart disease Mother Heart disease Sibling Cerebrovascular accident Social History Social History (Updated 05/10/22 @ 13:13 by Mone Nevarez MA) Smoking status: Never smoker Second hand tobacco smoke exposure: No Alcohol intake: current Drinks per week: 4 Substance use: current Substance use type: marijuana Other substance usage details: Daily Living arrangements: with family Gender identity (if verbalized by the patient): Male Spiritual care concerns: No Anes - Eval Final PreProcedure Day of Procedure 06/23/22 11:57 Patient weight: morbidly obese Heart: regular rate and rhythm Lungs: clear to auscultation Airway: Mallampati scale class II Neurological: alert and oriented Last oral intake: >/= 8 hours ASA classification: III Emergent: no Anesthetic plan: proceed Results Review: All pre-operative results and documents have been reviewed as part of the pre- operative evaluation. Informed Consent: The patient's anesthetic plan and its attendant risks and benefits were discussed with the patient/family/POA. Questions were solicited and answers provided to the satisfaction of the patient/family/POA.
--- NOTE | 2022-06-23 11:57 | PM.HPGS ---
History of Present Illness History of Present Illness Consent: Risks, benefits, and alternatives have been discussed and questions answered. Patient agrees to proceed with procedure. Chief complaint: hematochezia, change in bowel habits Narrative: Catalina Springer is a 57 year old male with loose stools but also noted sometimes blood after wiping. Last colonoscopy 3-4 years ago Review of Systems Constitutional: Constitutional: Denies headache(s) and Denies weakness Eyes: Eyes: Denies blurry vision ENT: Reports Normal hearing present, Denies headache(s) and Denies neck pain Cardiovascular: Cardiovascular: Denies chest pain and Denies dyspnea Respiratory: Respiratory: Denies dyspnea Gastrointestinal: Gastrointestinal: Reports no additional gastrointestinal complaints Genitourinary: Genitourinary: Denies dysuria Musculoskeletal: Musculoskeletal: Denies neck pain Integumentary/Breasts: Skin/Breast: Denies dry skin Neurologic: Reports Normal hearing present, Denies headache(s) and Denies weakness Psychiatric: Psychiatric: Denies anxiety Endocrine: Endocrine: Denies change in body appearance Hematologic/Lymphatic: Hematologic/Lymphatic: Denies easy bleeding Allergic/Immunologic: Allergic/Immunologic: Denies urticaria PMFSH Past Medical History Medical History (Updated 06/23/22 @ 11:58 by Issac Minor MD) Asthma Carpal tunnel syndrome DVT (deep venous thrombosis) Hematochezia High cholesterol History of blood clots Left lower quadrant pain Loose stools Suprapubic pain Surgical History Surgical History History of carpal tunnel release [place] teeth extracted Family History Family History Father Heart disease Mother Heart disease Sibling Cerebrovascular accident Social History Social History (Updated 05/10/22 @ 13:13 by Mone Nevarez MA) Smoking status: Never smoker Second hand tobacco smoke exposure: No Alcohol intake: current Drinks per week: 4 Substance use: current Substance use type: marijuana Other substance usage details: Daily Living arrangements: with family Gender identity (if verbalized by the patient): Male Spiritual care concerns: No Meds Home Medications and Allergies Home Medications Medication Instructions Recorded Confirmed Type cholestyramine (with sugar) 4 gram 4 g PO BID #378 grams 05/10/22 06/23/22 Rx oral powder (Questran) atorvastatin 40 mg tablet 40 mg PO DAILY 06/07/22 06/23/22 History rivaroxaban 15 mg (42)-20 mg (9) 20 ea PO DAILY 06/07/22 06/23/22 History tablets in a starter pack (Xarelto DVT-PE Treatment 30-Day Starter) liraglutide 0.6 mg/0.1 mL (18 mg/3 1.8 mg subcut DAILY 06/23/22 06/23/22 History mL) subcutaneous pen injector (Victoza 3-Jude) Allergies Allergy/AdvReac Type Severity Reaction Status Date / Time No Known Allergies Allergy Verified 06/23/22 11:19 Vital Signs Vital Signs - 24 hr 06/23/22 11:28 Temperature 97.2 F L Pulse Rate 84 Respiratory Rate 18 Blood Pressure 144/75 H Pulse Oximetry 99 Oxygen Delivery Room Air Exam Const: General: comfortable and no acute distress HENMT: General nose exam: Normal nares present Eyes: General: appearance normal, both eyes and all related structures Neck: Neck: no JVD Resp: Auscultation: clear to auscultation bilaterally Cardio: Rate: regular rate Rhythm: regular rhythm GI: Inspection: non-distended GI Palp: Yes Soft to palpation Skin: General skin exam: normal color Neuro: General: gait normal Speech: normal speech Extrem: General: normal to inspection Psych: Mental Status: mental status grossly normal Assessment and Plan Assessment and plan (1) Hematochezia: Code(s): K92.1 - Melena Status: Acute Assessment and Plan: probably perianal but will do colonoscop
[2022-06-23 12:20] VITALS: BP 144/88; PULSE 80; RESP 18; O2SAT 99
[2022-06-23 12:30] VITALS: BP 154/97; PULSE 78; RESP 16; O2SAT 95
[2022-06-23 12:40] VITALS: BP 153/103; PULSE 68; RESP 22; O2SAT 98
== END 2022-06-23 12:45 | disposition home or self-care (01) ==
PROVIDERS: PCP Physician Assistant; Visit Provider Internal Medicine Gastroenterology
PROC: 0DJD8ZZ Inspection of Lower Intestinal Tract, Via Natural or Artificial Opening Endoscopic (ICD-10-PCS; CPT 45378; principal; 2022-06-23 12:30)
DX: Z12.11 Encounter for screening for malignant neoplasm of colon (principal); R19.7 Diarrhea, unspecified; K92.1 Melena; K57.30 Diverticulosis of large intestine without perforation or abscess without bleeding; K64.8 Other hemorrhoids; K51.40 Inflammatory polyps of colon without complications; R19.4 Change in bowel habit; J45.909 Unspecified asthma, uncomplicated; Z86.73 Personal history of transient ischemic attack (TIA), and cerebral infarction without residual deficits; E78.00 Pure hypercholesterolemia, unspecified; F12.90 Cannabis use, unspecified, uncomplicated; Z79.01 Long term (current) use of anticoagulants
CPT/HCPCS: 45385; 45380; 88305; J2704; J7120

== ENCOUNTER 2023-01-09 00:29 | Day surgery (SDC) | payer OTHER, SELFPAY ==
[2023-01-02 12:33] VITALS: BMI 43.6
[2023-01-09 07:53] VITALS: BP 149/83; PULSE 72; RESP 17; TEMP 35.9; O2SAT 99; BMI 43.7
[2023-01-09] MEDS: LACTATED RINGERS 1,000 ML 150 ML IV CONT (08:04)
--- NOTE | 2023-01-09 08:40 | WPDANESEPPF ---
Anes - Initial Pre Proc Eval Procedure: Operation Date: 01/09/23 09:15 Proposed Procedures p Esophagogastroduodenoscopy - Issac Minor MD s [facility] Hemorrhoid Treatment - Issac Minor MD Date/Time: 01/09/23 08:40 Surgeon: Issac Minor MD Pre Op Diagnosis: melena, bloody stool, abdominal pain, hemorrhoids Patient Data Age: 57 Gender: M Height: 1.85 m Weight: 150.2 kg Last Vital Signs Temp 96.7 F L 01/09/23 07:53 Pulse 72 01/09/23 07:53 Resp 17 01/09/23 07:53 BP 149/83 H 01/09/23 07:53 Pulse Ox 99 01/09/23 07:53 O2 Del Method Room Air 01/09/23 07:53 Allergies Allergy/AdvReac Type Severity Reaction Status Date / Time No Known Allergies Allergy Verified 01/09/23 07:51 Home Medications Medication Instructions Recorded Confirmed Type cholestyramine (with sugar) 4 gram 4 g PO BID #378 grams 05/10/22 01/09/23 Rx oral powder (Questran) atorvastatin 40 mg tablet 40 mg PO DAILY 06/07/22 01/09/23 History naproxen sodium 220 mg capsule 220 mg PO BID PRN Pain 01/02/23 01/09/23 History (Aleve) rivaroxaban 20 mg tablet (Xarelto) 20 mg PO DAILY 01/02/23 01/09/23 History Patient hx anesthesia problems: none Family hx anesthesia problems: none Results Review: All pre-operative results and documents have been reviewed as part of the pre-operative evaluation. [facility] Past Medical History Medical History (Updated 12/07/22 @ 15:47 by Issac Minor MD) Asthma Carpal tunnel syndrome Colonic cryptitis DVT (deep venous thrombosis) GERD (gastroesophageal reflux disease) Hematochezia Hemorrhoid High cholesterol History of blood clots Left lower quadrant pain Loose stools Obesity, morbid, BMI 40.0-49.9 Suprapubic pain Surgical History Surgical History History of carpal tunnel release [place] teeth extracted Family History Family History Father Heart disease Mother Heart disease Sibling Cerebrovascular accident Social History Social History Smoking status: Never smoker Second hand tobacco smoke exposure: No Alcohol intake: current Drinks per week: 4 Substance use: current Substance use type: marijuana Other substance usage details: DAILY Living arrangements: with family Occupation/Education: occupation Gender identity (if verbalized by the patient): Male Spiritual care concerns: No Anes - Eval Final PreProcedure Day of Procedure 01/09/23 08:40 Patient weight: morbidly obese Heart: regular rate and rhythm Lungs: clear to auscultation Airway: Mallampati scale class II Neurological: alert and oriented Last oral intake: >/= 8 hours ASA classification: III Emergent: no Anesthetic plan: proceed Anesthesia type and monitoring: general GIVS and standard monitoring Results Review: All pre-operative results and documents have been reviewed as part of the pre-operative evaluation. Informed Consent: The patient's anesthetic plan and its attendant risks and benefits were discussed with the patient/family/POA. Questions were solicited and answers provided to the satisfaction of the patient/family/POA.
--- NOTE | 2023-01-09 09:09 | PM.HPGS ---
History of Present Illness History of Present Illness Consent: Risks, benefits, and alternatives have been discussed and questions answered. Patient agrees to proceed with procedure. Chief complaint: melena, bloody stool, abdominal pain, hemorrhoids Narrative: Catalina Springer is a 57 year old male here for egd and irc of hemorrhoids- he has chronic gerd using tums prn, diarrhea lately better because he is using questran consistently, insurance did not approve budesonide. Review of Systems Constitutional: Constitutional: Denies headache(s) and Denies weakness Eyes: Eyes: Denies blurry vision ENT: Reports Normal hearing present, Denies headache(s) and Denies neck pain Cardiovascular: Cardiovascular: Denies chest pain and Denies dyspnea Respiratory: Respiratory: Denies dyspnea Gastrointestinal: Gastrointestinal: Reports no additional gastrointestinal complaints Genitourinary: Genitourinary: Denies dysuria Musculoskeletal: Musculoskeletal: Denies neck pain Integumentary/Breasts: Skin/Breast: Denies dry skin Neurologic: Reports Normal hearing present, Denies headache(s) and Denies weakness Psychiatric: Psychiatric: Denies anxiety Endocrine: Endocrine: Denies change in body appearance Hematologic/Lymphatic: Hematologic/Lymphatic: Denies easy bleeding Allergic/Immunologic: Allergic/Immunologic: Denies urticaria PMFSH Past Medical History Medical History (Updated 12/07/22 @ 15:47 by Issac Minor MD) Asthma Carpal tunnel syndrome Colonic cryptitis DVT (deep venous thrombosis) GERD (gastroesophageal reflux disease) Hematochezia Hemorrhoid High cholesterol History of blood clots Left lower quadrant pain Loose stools Obesity, morbid, BMI 40.0-49.9 Suprapubic pain Surgical History Surgical History History of carpal tunnel release [place] teeth extracted Family History Family History Father Heart disease Mother Heart disease Sibling Cerebrovascular accident Social History Social History Smoking status: Never smoker Second hand tobacco smoke exposure: No Alcohol intake: current Drinks per week: 4 Substance use: current Substance use type: marijuana Other substance usage details: DAILY Living arrangements: with family Occupation/Education: occupation Gender identity (if verbalized by the patient): Male Spiritual care concerns: No Meds Home Medications and Allergies Home Medications Medication Instructions Recorded Confirmed Type cholestyramine (with sugar) 4 gram 4 g PO BID #378 grams 05/10/22 01/09/23 Rx oral powder (Questran) atorvastatin 40 mg tablet 40 mg PO DAILY 06/07/22 01/09/23 History naproxen sodium 220 mg capsule 220 mg PO BID PRN Pain 01/02/23 01/09/23 History (Aleve) rivaroxaban 20 mg tablet (Xarelto) 20 mg PO DAILY 01/02/23 01/09/23 History Allergies Allergy/AdvReac Type Severity Reaction Status Date / Time No Known Allergies Allergy Verified 01/09/23 07:51 Vital Signs Vital Signs - 24 hr 01/09/23 07:53 Temperature 96.7 F L Pulse Rate 72 Respiratory Rate 17 Blood Pressure 149/83 H Pulse Oximetry 99 Oxygen Delivery Room Air Exam Const: General: comfortable and no acute distress HENMT: Face/Nose/Sinus: Normal nares present Eyes: General: appearance normal, both eyes and all related structures Neck: Neck: no JVD Resp: Auscultation: clear to auscultation bilaterally Cardio: Rate: regular rate Rhythm: regular rhythm GI: Inspection: non-distended GI Palp: Yes Soft to palpation Skin: General skin exam: normal color Neuro: General: gait normal Speech: normal speech Extrem: General: normal to inspection Psych: Mental Status: mental status grossly normal Assessment and Plan Assessment and plan (1) Hemorrhoid:
--- NOTE | 2023-01-09 09:20 | SUR.OPER ---
IV infiltrated. Started new IV.
[2023-01-09 09:31] VITALS: BP 124/84; PULSE 76; RESP 28; O2SAT 100
--- NOTE | 2023-01-09 09:31 | W.PM.PROC2 ---
Procedure Note - Detailed Date of Procedure 01/09/23 Pre-op Diagnosis bloody stool, hemorrhoids Post-op Diagnosis Same Procedure Performed IRC of internal hemorrhoids Surgeon Issac Minor MD Anesthesia MAC (he also had egd) Description of Procedure found grade II internal hemorrhoids after introduced anoscope, no fissure, no bleeding. Then advanced IRC probe and hemorrhoids treated for 1.5 seconds x5
[2023-01-09 09:41] VITALS: BP 150/88; PULSE 76; RESP 33; O2SAT 94
[2023-01-09 09:51] VITALS: BP 131/89; PULSE 65; RESP 19; O2SAT 98
== END 2023-01-09 09:58 | disposition home or self-care (01) ==
PROVIDERS: PCP Physician Assistant; Visit Provider Internal Medicine Gastroenterology
PROC: 0DJ08ZZ Inspection of Upper Intestinal Tract, Via Natural or Artificial Opening Endoscopic (ICD-10-PCS; CPT 43235; principal; 2023-01-09 09:15)
PROC: (CPT 46930; 2023-01-09 09:15)
DX: K64.1 Second degree hemorrhoids (principal); K92.1 Melena; K21.9 Gastro-esophageal reflux disease without esophagitis; K29.50 Unspecified chronic gastritis without bleeding; K20.90 Esophagitis, unspecified without bleeding; K44.9 Diaphragmatic hernia without obstruction or gangrene; R19.7 Diarrhea, unspecified; J45.909 Unspecified asthma, uncomplicated; E78.00 Pure hypercholesterolemia, unspecified; E66.01 Morbid (severe) obesity due to excess calories; Z86.718 Personal history of other venous thrombosis and embolism; Z79.01 Long term (current) use of anticoagulants
CPT/HCPCS: 46930; 43239; 88305; 88312; 88342; J7120

== ENCOUNTER 2023-05-09 14:39 | Outpatient (CLI) | payer OTHER, SELFPAY ==
--- NOTE | 2023-05-09 | ECHO_ITS ---
Patient Info Name: Catalina Springer Age: 58 years : 1965 Gender: Male Ht: 73 in Wt: 315 lbs BSA: 2.77 m2 HR: 63 bpm BP: 161 / 84 mmHg Heart Rhythm: Sinus Rhythm Technical Quality: Fair Exam Date: 05/09/2023 2:58 PM Exam Location: [facility] Pulmonary Patient Status: Outpatient Admit Date: 05/09/2023 Staff Ordering Physician: KendallJackie Heel Shaper: Isabelle Carlin RDCS Attending Provider: Kendall, Jackie HARO Referring Physician: Kendall STANFORD; Exam Type: CA echo doppler color flow Study Info Indications - orthopnea Complete two-dimensional, color flow and Doppler transthoracic echocardiogram is performed. Summary 1. Complete two-dimensional, color flow and Doppler transthoracic echocardiogram is performed. 2. Left ventricular chamber dimension is normal. 3. Left ventricular systolic function is normal, estimated at 60-65%. 4. There is mild concentric increased left ventricular wall thickness. 5. The left ventricular diastolic function is grade I diastolic dysfunction. 6. E/e' 9 is minimally elevated. 7. There is mild aortic valve sclerosis. 8. No pulmonary hypertension, estimated pulmonary arterial systolic pressure is 31 mmHg. Left Ventricle E/e' 9 is minimally elevated. Left ventricular chamber dimension is normal. Left ventricular systolic function is normal, estimated at 60-65%. There is mild concentric increased left ventricular wall thickness. The left ventricular diastolic function is grade I diastolic dysfunction. Right Ventricle Right ventricular systolic function is normal and with normal TAPSE 2.2 cm. Right ventricular chamber dimension is normal. Left Atria Left atrial chamber dimension is normal. Right Atria Right atrial chamber dimension is normal. Aortic Valve The aortic valve is trileaflet. There is mild aortic valve sclerosis. There is no aortic valve stenosis. There is no aortic valve regurgitation. Pulmonic Valve There is no pulmonic regurgitation. Mitral Valve There is no mitral valve stenosis. There is no mitral valve regurgitation. Tricuspid Valve There is no tricuspid valve regurgitation. No pulmonary hypertension, estimated pulmonary arterial systolic pressure is 31 mmHg. Pericardium/Pleural There is no pericardial effusion. Inferior Vena Cava Normal inferior vena cava with >50% collapse upon inspiration consistent with normal right atrial pressure, 5 mmHg. Aorta The aortic root size at the sinus of Valsalva is normal. Left Ventricular Outflow Tract Name Value Normal LVOT 2D LVOT Diameter 2.0 cm LVOT Doppler LVOT Peak Gradient 8 mmHg LVOT Mean Gradient 4 mmHg LVOT VTI 20 cm LVOT VTI/AV VTI Ratio 0.8 LVOT Stroke Volume 61 ml LVOT CO 5.3 l/min LVOT CI 1.9 l/min/m2 Pulmonic Valve Name Value Normal RVOT Doppler
== END 2023-05-09 14:40 | disposition home or self-care (01) ==
PROVIDERS: PCP Physician Assistant; Visit Provider Physician Assistant
DX: R06.01 Orthopnea (principal); I35.8 Other nonrheumatic aortic valve disorders
CPT/HCPCS: 93306

== ENCOUNTER 2023-06-02 16:19 | Emergency (ER) | payer OTHER, SELFPAY ==
--- NOTE | 2023-06-02 16:22 | ED.SKABFB ---
HPI - Skin/Abscess/Foreign Bdy General Chief complaint: Skin/Abscess/Foreign Body Stated complaint: insect bite Time Seen by Provider: 06/02/23 16:21 Source: patient Mode of arrival: ambulatory Limitations: no limitations History of Present Illness HPI narrative: Catalina is a 58-year-old male patient presenting to the clinic today with complaints of a possible insect bite to his penis. He reports he developed a sore on the left side of the shaft of his penis approximate 1.5-2 weeks ago. It has increasingly gotten worse. He is concerned that it may be a spider bite. He denies any chance for sexually transmitted infection. No history of genital herpes. Reports the area is painful to touch but otherwise is not painful Related Data Home Medications Medication Instructions Recorded Confirmed atorvastatin 40 mg tablet 40 mg PO DAILY 06/07/22 06/02/23 rivaroxaban 20 mg tablet (Xarelto) 20 mg PO DAILY 01/02/23 06/02/23 cetirizine 10 mg tablet 10 mg PO DAILY 06/02/23 06/02/23 Allergies Allergy/AdvReac Type Severity Reaction Status Date / Time No Known Allergies Allergy Verified 06/02/23 16:32 Review of Systems Review of Systems: Pertinent positives per HPI. Patient denies any fever, chills, rash, headache, visual changes, dizziness, cough, runny nose, sore throat, shortness of breath, chest pain, palpitations, nausea, vomiting, diarrhea, constipation, abdominal pain, or any urinary issues. [facility] Past Medical History Medical History Asthma Carpal tunnel syndrome Colonic cryptitis DVT (deep venous thrombosis) GERD (gastroesophageal reflux disease) Hematochezia Hemorrhoid High cholesterol History of blood clots Left lower quadrant pain Loose stools Obesity, morbid, BMI 40.0-49.9 Suprapubic pain Surgical History Surgical History History of carpal tunnel release [place] teeth extracted Family History Family History Father Heart disease Mother Heart disease Sibling Cerebrovascular accident Social History Social History Smoking status: Never smoker Second hand tobacco smoke exposure: No Alcohol intake: current Drinks per week: 4 Substance use: current Substance use type: marijuana Other substance usage details: DAILY Living arrangements: with family Occupation/Education: occupation Gender identity (if verbalized by the patient): Male Spiritual care concerns: No Comments At the time of my signature, I reviewed and agree with the nursing past medical, surgical, social, and family history. There is no relevant family history pertinent to the patient complaint. Exam Narrative: General: Well-developed, well nourished, in no apparent distress Head: Normocephalic, atraumatic. Cardio: Regular rate and rhythm, s1 and s2 normal, no murmur appreciated. Resp: Clear to auscultation bilaterally, no rhonchi, rales, wheezing or rubs. Integumentary: [place], warm, and dry, open ulcerated tender red area to the left shaft of the penis just below the vas deferens, no obvious drainage Course Course Emergency Course: Portions of this record may have been created with voice recognition software. Level of Care: Express Care Visit Vital Signs Vital signs: Vital signs reviewed MDM - Skin/Abscess/Foreign Bdy MDM Narrative Medical decision making narrative: At the time of visit patient is resting comfortably on the exam table. I suspect patient has a skin ulcer to the penis. He has no concerns for any sexually transmitted infection. Will send in prescription for mupirocin and give him oral doxycycline. He is to follow up with his PCP in 1 week if symptoms persist or sooner if they worsen. Differential Diagnosis Differential diagnosis: Likely abs
[2023-06-02 16:29] VITALS: BP 121/82; PULSE 87; RESP 18; TEMP 36.7; O2SAT 98
== END 2023-06-02 16:35 | disposition home or self-care (01) ==
PROVIDERS: Emergency Provider Nurse Practitioner Family; PCP Physician Assistant
DX: N48.5 Ulcer of penis (principal); F12.90 Cannabis use, unspecified, uncomplicated; J45.909 Unspecified asthma, uncomplicated; K21.9 Gastro-esophageal reflux disease without esophagitis; E78.00 Pure hypercholesterolemia, unspecified; E66.01 Morbid (severe) obesity due to excess calories; Z68.39 Body mass index [BMI] 39.0-39.9, adult; Z86.718 Personal history of other venous thrombosis and embolism; Z86.2 Personal history of diseases of the blood and blood-forming organs and certain disorders involving the immune mechanism
CPT/HCPCS: 99213; G0463

== ENCOUNTER 2024-06-13 13:25 | Emergency (ER) | payer SELFPAY ==
--- NOTE | 2024-06-13 13:33 | ED.SKABFB ---
HPI - Skin/Abscess/Foreign Bdy General Chief complaint: Skin/Abscess/Foreign Body Stated complaint: Possible posion jose manuel Time Seen by Provider: 06/13/24 13:32 Source: patient Mode of arrival: ambulatory Limitations: no limitations History of Present Illness HPI narrative: Catalina is a 59-year-old male presents with multiple complaints. He states about 3 weeks ago he was exposed to poison jose manuel and has developed a pruritic rash to to bilateral upper and lower extremities. He has been using [id number] remedies for this without relief. He also complains of discoloration and swelling to the left lower extremity. He states he has a history of DVT and is on Xarelto but has been out of it for 3 months. He had a PCP appointment yesterday but thought it was the day before so he was unable to get his Xarelto and Atorvastatin refilled. He also states he has a ?parasitic infection? in his stool. He has been passing worms in his stool and noticing them and his underwear. Thinks he has a ring worm rash on his abdomen. He denies any chest pain, shortness of breath, or abdomen pain. Related Data Home Medications Medication Instructions Recorded Confirmed No Home Medications 06/13/24 06/13/24 Allergies Allergy/AdvReac Type Severity Reaction Status Date / Time No Known Allergies Allergy Verified 06/13/24 13:44 Review of Systems Review of Systems: Pertinent positives per HPI. Patient denies any fever, chills, rash, headache, visual changes, dizziness, cough, runny nose, sore throat, shortness of breath, chest pain, palpitations, nausea, vomiting, diarrhea, constipation, abdominal pain, or any urinary issues. [facility] Past Medical History Medical History Asthma Carpal tunnel syndrome Colonic cryptitis DVT (deep venous thrombosis) GERD (gastroesophageal reflux disease) Hematochezia Hemorrhoid High cholesterol History of blood clots Left lower quadrant pain Loose stools Obesity, morbid, BMI 40.0-49.9 Suprapubic pain Surgical History Surgical History History of carpal tunnel release [place] teeth extracted Family History Family History Father Heart disease Mother Heart disease Sibling Cerebrovascular accident Social History Social History Smoking status: Never smoker Second hand tobacco smoke exposure: No Alcohol intake: current Drinks per week: 4 Substance use: current Substance use type: marijuana Other substance usage details: DAILY Living arrangements: with family Occupation/Education: occupation Gender identity (if verbalized by the patient): Male Spiritual care concerns: No Comments At the time of my signature, I reviewed and agree with the nursing past medical, surgical, social, and family history. There is no relevant family history pertinent to the patient complaint. Exam Narrative: General: Well-developed, well nourished, in no apparent distress Head: Normocephalic, atraumatic. Cardio: Regular rate and rhythm, s1 and s2 normal, no murmur appreciated. Resp: Clear to auscultation bilaterally, no rhonchi, rales, wheezing or rubs. Integumentary: Bilateral lower extremities dusky and erythematous. Multiple small weeping ulcers noted to the left anterior lower extremity. Approximately 1 cm ulcer with surrounding erythema noted to the lower mid-abdomen. Musculoskeletal: No deformity, left distal giron tender to palpation, grossly normal range of motion, muscle strength strong and equal, bilateral lower extremity edema left greater than right, no cyanosis, normal gait and station. Course Course Emergency Course: Portions of this record may have been created with voice recognition software. Level of Care: Express Care Visit Vital Signs Vi
[2024-06-13 13:42] VITALS: BP 183/98; PULSE 91; RESP 20; TEMP 36.6; O2SAT 97
[2024-06-13 13:45] VITALS: BP 183/98; PULSE 91; RESP 20; TEMP 36.6; O2SAT 97
== END 2024-06-13 14:12 | disposition short-term general hospital (02) ==
PROVIDERS: Emergency Provider Nurse Practitioner Family; PCP Physician Assistant
DX: M79.662 Pain in left lower leg (principal); R22.42 Localized swelling, mass and lump, left lower limb; B89 Unspecified parasitic disease; Z86.718 Personal history of other venous thrombosis and embolism; J45.909 Unspecified asthma, uncomplicated; K21.9 Gastro-esophageal reflux disease without esophagitis; E78.00 Pure hypercholesterolemia, unspecified; Z86.2 Personal history of diseases of the blood and blood-forming organs and certain disorders involving the immune mechanism; E66.01 Morbid (severe) obesity due to excess calories; Z68.41 Body mass index [BMI] 40.0-44.9, adult
CPT/HCPCS: 99212; G0463

== ENCOUNTER 2024-06-13 16:14 | Emergency (ER) | payer SELFPAY ==
--- NOTE | ~2024-06-13 | US_ITS ---
EXAMINATION: US venous doppler [facility] DATE: 06/13/2024 17:15 INDICATION: Lower limb pain, swelling and erythema TECHNIQUE: Grayscale ultrasound images without and with compression and Doppler ultrasound images of the bilateral lower extremity veins were obtained. COMPARISON: None. FINDINGS: The visualized portions of right common femoral vein, profunda (deep) femoral vein, femoral vein, pop liteal vein, posterior tibial veins, peroneal veins, gastrocnemius vein and greater saphenous vein ou tflow are patent. The visualized portions of left common femoral vein, profunda femoral vein, femoral vein, popliteal v ein, gastrocnemius vein and greater saphenous vein outflow are patent. The peroneal and posterior tib ial veins at the left calf are unable to be visualized. IMPRESSION: 1. No deep venous thrombosis in either lower limb. Reviewed, dictated and finalized at location A.
[2024-06-13 16:17] VITALS: BP 185/87; PULSE 88; RESP 20; TEMP 36.6; O2SAT 98
--- NOTE | 2024-06-13 16:47 | ED.GENADULT ---
HPI - General Adult General Chief complaint: Extremity Injury, Lower Stated complaint: DVT Time Seen by Provider: 06/13/24 16:26 History of Present Illness HPI narrative: 59-year-old male presents to the emergency department for evaluation of multiple complaints. Patient is concerned that he has DVT since she has prior history of DVTs has not been taking his Xarelto for approximately 3 months. Patient has also concerns that he does have poison jose manuel. And patient is also concerned that he has parasites in his stool. Related Data Allergies Allergy/AdvReac Type Severity Reaction Status Date / Time No Known Allergies Allergy Verified 06/13/24 13:44 Review of Systems Review of Systems: All systems reviewed & are unremarkable except as noted in HPI and below PMFSH Past Medical History Medical History Asthma Carpal tunnel syndrome Colonic cryptitis DVT (deep venous thrombosis) GERD (gastroesophageal reflux disease) Hematochezia Hemorrhoid High cholesterol History of blood clots Left lower quadrant pain Loose stools Obesity, morbid, BMI 40.0-49.9 Suprapubic pain Surgical History Surgical History History of carpal tunnel release [place] teeth extracted Family History Family History Father Heart disease Mother Heart disease Sibling Cerebrovascular accident Social History Social History Smoking status: Never smoker Second hand tobacco smoke exposure: No Alcohol intake: current Drinks per week: 4 Substance use: current Substance use type: marijuana Other substance usage details: DAILY Living arrangements: with family Occupation/Education: occupation Gender identity (if verbalized by the patient): Male Spiritual care concerns: No Exam Narrative: APPEARANCE: Well appearing, no pain, no distress, well-nourished. HEAD: normocephalic, atraumatic. EYES: PERRLA/EOMI, conjunctivae clear. NOSE: Normal no drainage EARS:TMS clear with good light reflex. THROAT: Pharynx clear, no exudate. NECK: Supple. No adenopathy, no masses. RESPIRATORY: Airway patent, respirations nonlabored. Clear to auscultation bilaterally, no rales, rhonchi, wheezing. CARDIOVASCULAR: Regular rate and rhythm without murmurs rubs or gallops. ABDOMINAL: Soft, nontender, nondistended, normal bowel sounds MUSCULOSKELETAL: Moves all extremities. Strength/ROM intact, No edema, No calf tenderness. NEURO: Alert. Cranial nerves II through XII intact. Good gait. Good coordination SKIN: Lower extremity erythema bilaterally concerning for cellulitis, changes of chronic venous stasis Course Vital Signs Vital signs: Vital Signs Temperature 97.8 F 06/13/24 16:17 Pulse Rate 88 06/13/24 16:17 Respiratory Rate 20 06/13/24 16:17 Blood Pressure 185/87 H 06/13/24 16:17 Pulse Oximetry 98 06/13/24 16:17 Oxygen Delivery Room Air 06/13/24 16:17 Temperature 97.8 F 06/13/24 16:17 Pulse Rate 88 06/13/24 16:17 Respiratory Rate 20 06/13/24 16:17 Blood Pressure 185/87 H 06/13/24 16:17 Pulse Oximetry 98 06/13/24 16:17 Oxygen Delivery Room Air 06/13/24 16:17 Medical Decision Making [facility] Narrative Medical decision making narrative: 59-year-old male present to the emergency department for evaluation for lower extremity edema and erythema. Ultrasounds were negative for DVTs bilaterally. Patient is afebrile with no leukocytosis and stable hemoglobin of 13.8. Patient has no acute abnormalities on his CMP. Patient is being started on antibiotics for suspected bilateral lower extremity cellulitis. Patient did have many photos of his feces, including a bowel movement that he had an a garbage can. Patient was concerned that some of the objects in his feces were parasites.
[2024-06-13 17:30] LABS: Basophils Absolute Auto 0.1 K/mm3 (0.0-0.1); Eosinophils Absolute Auto 0.5 K/mm3 (0-0.3); Eosinophils Percent Auto 4.9 % (0-4.4); Hematocrit 41.6 % (42.0-52.0); Hemoglobin 13.8 g/dL (14.0-18.0); Immature Granulocyte Absolute 0.03 K/mm3 (0.00-0.031); Immature Granulocyte Percent A 0.3 % (0-0.5); Lymphocytes Percent Auto 31.8 % (18.3-44.2); Mean Corpuscular HGB Conc 33.2 g/dl (32-36); Mean Corpuscular Hemoglobin 30.3 pg (26-34); Mean Corpuscular Volume 91.2 fl (80-100); Mean Platelet Volume 10.4 fl (7.4-10.4); Monocytes Absolute Auto 1.1 K/mm3 (0.1-0.6); Neutrophils Absolute Auto 4.6 K/mm3 (1.3-6.7); Platelet Count Result 326 k/mm3 (150-375); Red Blood Count 4.56 M/mm3 (4.6-6.20); Red Cell Distribution Width 15.9 % (11.5-14.5); White Blood Count 9.1 K/mm3 (4.5-10.0)
[2024-06-13 17:43] LABS: Alanine Aminotransferase 32 U/L (6-50); Albumin Level 4.1 g/dL (3.5-5.1); Alkaline Phosphatase 87 U/L (38-126); Anion Gap 7 mmol/L (4-12); Aspartate Amino Transferase 41 U/L (17-59); Bilirubin,Total 0.8 mg/dL (0.2-1.3); Blood Urea Nitrogen 18 mg/dL (9-20); Carbon Dioxide 29 mmol/L (22-30); Chloride 102 mmol/L (98-107); Estimated CRCL calculation 108 ml/min; Estimated Glomerular Filt Rate > 60; Glucose 133 mg/dL (65-110); Potassium 4.3 mmol/L (3.4-5.0); Sodium 138 mmol/L (137-145)
== END 2024-06-13 18:14 | disposition home or self-care (01) ==
PROVIDERS: Emergency Provider Emergency Medicine; PCP Physician Assistant
DX: L03.116 Cellulitis of left lower limb (principal); L03.115 Cellulitis of right lower limb; E78.00 Pure hypercholesterolemia, unspecified; E66.01 Morbid (severe) obesity due to excess calories; Z68.41 Body mass index [BMI] 40.0-44.9, adult; K21.9 Gastro-esophageal reflux disease without esophagitis; Z86.718 Personal history of other venous thrombosis and embolism; Z79.01 Long term (current) use of anticoagulants
CPT/HCPCS: 36415; 80053; 85025; 93970; 99284

== ENCOUNTER 2025-04-23 12:45 | Inpatient (IN) | payer OTHER, MEDICAID, SELFPAY ==
[2025-04-23] VITALS (48 sets, daily range): BP systolic 98–163; BP diastolic 62–124; PULSE 89–144; RESP 13–28; TEMP 36.7–36.9; O2SAT 90–100; BMI 43.8
--- NOTE | ~2025-04-23 | CT_ITS ---
CLINICAL INDICATION: COMPARISON: . TECHNIQUE: Multiple contiguous axial images of the abdomen and pelvis were performed following the ad ministration of with 100 mL Omnipaque-350 intravenous contrast The dose-length product (DLP) was 1624.74 mGy-cm. Automated exposure control and iterative reconstruction technique were employed. FINDINGS/OBSERVATIONS: Visualized lower thorax: The bilateral lung bases are clear. The heart is of normal size, without pericardial effusion. Small hiatal hernia is present. Liver: The liver demonstrates homogeneous enhancement and is not enlarged. Gallbladder and biliary system: The gallbladder is surgically absent. Pancreas: The pancreas enhances homogeneously without ductal dilatation. Spleen: The spleen enhances homogeneously and is not enlarged. . Kidneys: The bilateral kidneys enhance heterogeneously, likely secondary to reduced function, without hydronep hrosis or renal calculi. Adrenal glands: Unremarkable. Gastrointestinal tract: Increased attenuation identified within the cecum and rectum, for which acute hemorrhage is suspected . Appendix: The appendix is not definitively visualized. However, no pericecal inflammatory change is identified suggest the presence of acute appendicitis. Vasculature: Unremarkable. Lymph nodes: No pathologically enlarged or morphologically suspicious lymph nodes within the retroperitoneum or at the root of the mesentery. Pelvic structures: The bladder is decompressed, limiting its evaluation. The prostate gland is not enlarged. Body wall and musculoskeletal: Age advanced degenerative disease within the lower thoracic and lumbosacral spine. IMPRESSION: Increased attenuation within the cecum and rectum with surrounding inflammatory change for which acut e hemorrhage is suspected. Reviewed, dictated and finalized at location A. IMPRESSION: Increased attenuation within the cecum and rectum with surrounding inflammatory change for which acute hemorrhage is suspected.
--- NOTE | 2025-04-23 13:01 | ECG_ITS ---
Test Date: 2025-04-23 13:03:55 Measurements Intervals [place] Rate: 125 P: 0 HI: 0 QRS: 68 QRSD: 105 T: 18 QT: 333 QTc: 480 Interpretive Statements ATRIAL FIBRILLATION WITH RAPID VENTRICULAR RESPONSE BORDERLINE ST-T WAVE ABNORMALITY- ANTEROLAT/INF LEADS ABNORMAL ECG No previous ECG available for comparison Electronically Signed On 04-23-2025 13:07:40 CDT by Chaz Camacho D.O.
[2025-04-23 13:31] LABS: Basophils Absolute Auto 0.1 K/mm3 (0.0-0.1); Basophils Percent Auto 0.8 % (0.2-1.2); Hematocrit 40.7 % (42.0-52.0); Immature Granulocyte Absolute 0.11 K/mm3 (0.00-0.031); Immature Granulocyte Percent A 0.7 % (0-0.5); Lymphocytes Absolute Auto 3.66 K/mm3 (0.9-3.2); Lymphocytes Percent Auto 24.7 % (18.3-44.2); Mean Corpuscular HGB Conc 31.9 g/dl (32-36); Mean Corpuscular Volume 90.6 fl (80-100); Mean Platelet Volume 9.8 fl (7.4-10.4); Monocytes Absolute Auto 1.5 K/mm3 (0.1-0.6); Monocytes Percent Auto 9.9 % (2.6-8.5); Neutrophils Absolute Auto 8.4 K/mm3 (1.3-6.7); Neutrophils Percent Auto 56.9 % (45.5-73.1); Platelet Count Result 402 k/mm3 (150-375); Red Blood Count 4.49 M/mm3 (4.6-6.20); Red Cell Distribution Width 15.6 % (11.5-14.5); White Blood Count 14.8 K/mm3 (4.5-10.0)
[2025-04-23 13:44] LABS: INR 1.6; Prothrombin Time 18.7 Seconds (11.1-14.7)
[2025-04-23 13:46] LABS: Partial Thromboplastin Time 33.5 Seconds (22.3-36.8)
[2025-04-23 13:50] LABS: Alanine Aminotransferase 26 U/L (6-50); Alkaline Phosphatase 96 U/L (38-126); Anion Gap 13 mmol/L (4-12); Aspartate Amino Transferase 36 U/L (17-59); Bilirubin,Total 1.2 mg/dL (0.2-1.3); Blood Urea Nitrogen 33 mg/dL (9-20); Carbon Dioxide 20 mmol/L (22-30); Chloride 104 mmol/L (98-107); Estimated CRCL calculation 58 ml/min; Estimated Glomerular Filt Rate 36; Glucose 106 mg/dL (65-110); Sodium 137 mmol/L (137-145); Total Protein 7.8 g/dL (6.3-8.2)
--- NOTE | 2025-04-23 14:43 | ED_ITS ---
HPI - General Adult General Chief complaint: GI Bleed Stated complaint: shittin blood for 2 months Time Seen by Provider: 04/23/25 14:38 Source: patient Mode of arrival: ambulatory Limitations: no limitations History of Present Illness HPI narrative: 60 years old white male drove himself to the emergency room complaining of bloody diarrhea for the last 4 weeks. On average 8-10 watery stools a day. Associated with abdominal pain. History of cholecystectomy, hypertension, hyperlipidemia, deep vein thrombosis bilaterally on Xarelto. Patient does not smoke cigarettes, uses marijuana daily, drinks alcohol occasionally Related Data Allergies Allergy/AdvReac Type Severity Reaction Status Date / Time No Known Allergies Allergy Verified 06/13/24 13:44 Review of Systems 2 Review of Systems: All systems reviewed & are unremarkable except as noted in HPI and below PMFSH Past Medical History Medical History Obesity, morbid, BMI 40.0-49.9 Colonic cryptitis Hemorrhoid GERD (gastroesophageal reflux disease) Loose stools Hematochezia Suprapubic pain Left lower quadrant pain High cholesterol History of blood clots Carpal tunnel syndrome Asthma DVT (deep venous thrombosis) Surgical History Surgical History [place] teeth extracted History of carpal tunnel release Family History Family History Father Heart disease Mother Heart disease Sibling Cerebrovascular accident Social History Social History Smoking status: Never smoker Second hand tobacco smoke exposure: No Alcohol intake: current Drinks per week: 4 Substance use: current Substance use type: marijuana Other substance usage details: DAILY Living arrangements: with family Occupation/Education: occupation Gender identity (if verbalized by the patient): Male Spiritual care concerns: No Exam 2 Narrative: General appearance: Well-developed, well-nourished Skin: Normal color Head: Normocephalic, nontraumatic Eyes: Clear conjunctiva ENT: Oropharynx normal, ears normal, nose normal Neck: Supple, nontender Chest and respiratory: Airway patent, no respiratory distress, no accessory muscle use Heart: Regular rate/rhythm Abdomen: Soft, diffuse tenderness, hyperactive bowel sounds, no organomegaly, quiet bowel sounds, rectal exam showing pinkish liquid stool, guaiac positive Vascular: Normal peripheral pulses, normal capillary refill. Musculoskeletal: Normal range of motion, nontender back Neurologic: Alert and oriented ?3, COMPUTER ANALYST is normal as tested, no gross motor deficit Course Consultations Consultation #1: DR TSAI Date: 04/23/25 Vital Signs Vital signs: Vital Signs Temperature 36.7 C 04/23/25 12:46 Pulse Rate 144 H 04/23/25 12:46 Respiratory Rate 18 04/23/25 12:46 Blood Pressure 118/85 04/23/25 12:46 Pulse Oximetry 100 04/23/25 12:46 Temperature 36.7 C 04/23/25 12:46 Pulse Rate 124 H 04/23/25 13:32 Respiratory Rate 24 H 04/23/25 13:32 Blood Pressure 115/80 04/23/25 13:32 Pulse Oximetry 90 04/23/25 13:32 Medical Decision Making MDM Narrative Medical decision making narrative: Patient came to the ED with intermittent abdominal pain, and bloody diarrhea for the last 4 weeks Vital signs showing heart rate of 144 beats per minute Physical examination showing diffuse abdominal tenderness, rectal exam showing pinkish liquidy stool guaiac positive Blood workup today includes CBC, CMP, lipase showed WBC 14.8, hemoglobin 13.0, platelet count 402, creatinine 1.9 CT abdomen and pelvis with IV contrast showed inflammatory change of the cecum and rectum. Patient started on metronidazole and Levaquin Diagnosis hemorrhagic diarrhea, waiting for C diff and stool culture, KEITH secondary to diarrhea for the last 4 weeks, Vital Signs Vital Signs: Vital Signs Temperature 36.7 C 04/23/25 12:46 Pulse Rate 144 H 04/23/25 12:46 Respiratory Rate 18 04/23/25 12:46 Blood Pressure 118/85 04/23/25 12:46 Pulse Oximetry 100 04/23/25 12:46 Temperature 36.7 C 04/23/25 12:46 Pulse Rate 124 H 04/23/25 13:32 Respiratory Rate 24 H 04/23/25 13:32 Blood Pressure 115/80 04/23/25 13:32 Pulse Oximetry 90 04/23/25 13:32 Lab Data 04/23/25 13:24 04/23/25 13:24 Labs: Lab Results 04/23/25 04/23/25 04/23/25 Range/Units 13:24 15:05 16:18 WBC 14.8 H (4.5-10.0) K/mm3 RBC 4.49 L (4.6-6.20) M/mm3 Hgb 13.0 L (14.0-18.0) g/dL Hct 40.7 L (42.0-52.0) % MCV 90.6 (80-100) fl MCH 29.0 (26-34) pg MCHC 31.9 L (32-36) g/dl RDW 15.6 H (11.5-14.5) % Plt Count 402 H (150-375) k/mm3 MPV 9.8 (7.4-10.4) fl Immature Gran % (Auto) 0.7 H (0-0.5) % Neut % (Auto) 56.9 (45.5-73.1) % Lymph % (Auto) 24.7 (18.3-44.2) % [place] % (Auto) 9.9 H (2.6-8.5) % Eos % (Auto) 7.0 H (0-4.4) % Baso % (Auto) 0.8 (0.2-1.2) % Lymph # (Auto) 3.66 H (0.9-3.2) K/mm3 [place] # (Auto) 1.5 H (0.1-0.6) K/mm3 Eos # (Auto) 1.0 H (0-0.3) K/mm3 Baso # (Auto) 0.1 (0.0-0.1) K/mm3 Abs Immat Gran (auto) 0.11 H (0.00-0.031) K/mm3 Absolute Neuts (auto) 8.4 H (1.3-6.7) K/mm3 Absolute Nucleated RBC 0.000 (0.0-0.012) K/mm3 Nucleated RBC % 0.0 (0.0-0.2) % PT 18.7 H (11.1-14.7) Seconds INR 1.6 APTT 33.5 (22.3-36.8) Seconds Sodium 137 (137-145) mmol/L Potassium 4.0 (3.4-5.0) mmol/L Chloride 104 (98-107) mmol/L Carbon Dioxide 20 L (22-30) mmol/L Anion Gap 13 H (4-12) mmol/L BUN 33 H D (9-20) mg/dL Creatinine 1.93 H (0.7-1.3) mg/dL Estim Creat Clear Calc 58 ml/min Estimated GFR 36 L (59 - ) Glucose 106 (65-110) mg/dL Lactic Acid 1.0 (0.7-2.0) mmol/L Calcium 9.0 (8.4-10.2) mg/dL Total Bilirubin 1.2 (0.2-1.3) mg/dL AST 36 (17-59) U/L ALT 26 (6-50) U/L Alkaline Phosphatase 96 (38-126) U/L Total Protein 7.8 (6.3-8.2) g/dL Albumin 4.0 (3.5-5.1) g/dL C. difficile (PCR) Pending Blood Type B Positive Antibody Screen Negative Critical Care Time Critical Care Time Critical Care Time: No Discharge Plan Discharge Clinical Impression: Diarrhea, KEITH (acute kidney injury), Atrial fibrillation with rapid ventricular response Patient Disposition: Still a Patient Condition: Stable
[2025-04-23] MEDS: SODIUM CHLORIDE 0.9% IV 2,000 ML 999 ML IV CONT (15:37)
[2025-04-23 17:15] LABS: Toxigenic C. Diff NEGATIVE (NEGATIVE)
[2025-04-23] MEDS: dilTIAZem HCl INJ 25 MG/5 ML VIAL 10 MG IV PUSH (17:31)
--- NOTE | 2025-04-23 17:47 | ECG_ITS ---
Test Date: 2025-04-23 17:49:01 Measurements Intervals [facility] Rate: 98 P: 0 MA: 0 QRS: 69 QRSD: 103 T: 18 QT: 361 QTc: 462 Interpretive Statements ATRIAL FIBRILLATION INCOMPLETE RIGHT BUNDLE BRANCH BLOCK BORDERLINE ST-T WAVE ABNORMALITY- ANTEROLAT/INF LEADS ABNORMAL ECG Compared to ECG 04/23/2025 13:03:55 HEART RATE HAS DECREASED Electronically Signed On 04-23-2025 20:33:26 CDT by Chaz Camacho D.O.
[2025-04-23] MEDS: levoFLOXacin 500 MG/D5W 100 ML 500 MG/100 ML BAG 100 MG IVPB (17:50)
--- NOTE | 2025-04-23 18:37 | P.HP_ITS ---
H&P: HPI History of Present Illness Date/Time: 04/23/25 18:37 Chief Complaint: GI Bleed Narrative: This is a 60-year-old male patient with history of previous DVT on Xarelto, hypertension, hyperlipidemia, asthma, GERD and morbid obesity who comes to the ER with complaints of having two months of blood in his stool. Patient notes that he has been having approximately 8-10 watery/loose stools daily that initially appeared bright red in color and gradually turned dark and with clots. Patient endorses lower abdominal pain with the bleeding. No fevers. He endorses that he has been dizzy at times and nauseated at times from the smell of his stool, however he denies overt vomiting. Patient states he has mention to his primary care provider that he has had a GI bleed and he has been referred to GI but has yet to be any for evaluation. Patient denies taking any recent antibiotics. He reportedly had a colonoscopy a couple of years ago that was significant for findings of 1 polyp only. Patient reportedly has taking leftover antibiotics that he had at home to try to ?clear anything up.? He is unsure what antibiotics he took. Workup in the emergency room was found. CT scan was performed that showed in attenuation to seek rectum that could be potential blood products. Hemoglobin is preserved at 13.0 compared to 13.81 year ago. Metabolic panel shows a degree of chronic kidney disease at 1.93. C diff was negative as tested in the ER. In the emergency room and was found patient was in AFib RVR upon arrival. He received a dose of Flagyl and Levaquin as directed by Dr. almonte, who was consu lted for GI. Patient remained on Xarelto, however this will be held in the current setting. He denies any CP, dyspnea or other acute complaints at this time. Review of Systems Review of Systems: All systems reviewed & are unremarkable except as noted in HPI and below PMFSH Past Medical History Medical History (Updated 04/23/25 @ 20:18 by DENNY Paniagua) Chronic anticoagulation Acute GI bleeding Obesity, morbid, BMI 40.0-49.9 Colonic cryptitis Hemorrhoid GERD (gastroesophageal reflux disease) Loose stools Hematochezia Suprapubic pain Left lower quadrant pain High cholesterol History of blood clots Carpal tunnel syndrome Asthma DVT (deep venous thrombosis) Surgical History Surgical History [place] teeth extracted History of carpal tunnel release Family History Family History Father Heart disease Mother Heart disease Sibling Cerebrovascular accident Social History Social History Smoking status: Never smoker Second hand tobacco smoke exposure: No Alcohol intake: current Drinks per week: 4 Substance use: current Substance use type: marijuana Other substance usage details: DAILY Living arrangements: with family Occupation/Education: occupation Gender identity (if verbalized by the patient): Male Spiritual care concerns: No Meds Home Medications and Allergies Home Medications ?Medication ?Instructions ?Recorded ?Confirmed ?Type cephalexin 500 mg capsule 500 mg PO Q12H 7 days #14 caps 06/13/24 Rx rivaroxaban 10 mg tablet (Xarelto) 10 mg PO DAILY #30 tabs 06/13/24 Rx Allergies Allergy/AdvReac Type Severity Reaction Status Date / Time No Known Allergies Allergy Verified 06/13/24 13:44 Vital Signs Vital Signs - 24 hr 04/23/25 12:46 04/23/25 12:55 04/23/25 12:56 Temperature 98.1 F Pulse Rate 144 H 136 H 129 H Respiratory Rate 18 24 H 25 H Blood Pressure 118/85 102/80 Pulse Oximetry 100 96 96 04/23/25 13:00 04/23/25 13:01 04/23/25 13:15 Temperature Pulse Rate 127 H 126 H 130 H Respiratory Rate 27 H 26 H 13 Blood Pressure 98/62 L Pulse Oximetry 04/23/25 13:16 04/23/25 13:30 04/23/25 13:32 Temperature Pulse Rate 128 H 118 H 124 H Respiratory Rate 22 H 18 24 H Blood Pressure 99/74 L 115/80 Pulse Oximetry 98 90 04/23/25 13:33 04/23/25 13:45 04/23/25 13:46 Temperature Pulse Rate 123 H 120 H 122 H Respiratory Rate 24 H 21 H 17 Blood Pressure 131/88 Pulse Oximetry 93 96 97 04/23/25 14:00 04/23/25 14:01 04/23/25 14:15 Temperature Pulse Rate 126 H 107 H 117 H Respiratory Rate 20 21 H 18 Blood Pressure 136/119 H Pulse Oximetry 97 98 97 04/23/25 14:16 04/23/25 14:25 04/23/25 14:30 Temperature Pulse Rate 111 H 115 H 125 H Respiratory Rate 19 18 20 Blood Pressure 155/124 H 153/105 H Pulse Oximetry 96 96 04/23/25 14:45 04/23/25 14:46 04/23/25 15:00 Temperature Pulse Rate 105 H 118 H 109 H Respiratory Rate 22 H 18 Blood Pressure 158/108 H Pulse Oximetry 04/23/25 15:07 04/23/25 15:15 04/23/25 15:30 Temperature Pulse Rate 116 H 114 H 123 H Respiratory Rate 19 20 18 Blood Pressure 103/63 Pulse Oximetry 04/23/25 16:08 04/23/25 16:09 04/23/25 16:15 Temperature Pulse Rate 121 H 119 H 122 H Respiratory Rate 23 H 21 H 21 H Blood Pressure 132/77 Pulse Oximetry 97 98 98 04/23/25 16:16 04/23/25 16:30 04/23/25 16:31 Temperature Pulse Rate 118 H 112 H 109 H Respiratory Rate 20 21 H 20 Blood Pressure 144/104 H 129/87 Pulse Oximetry 98 99 99 04/23/25 16:45 04/23/25 16:46 04/23/25 17:00 Temperature Pulse Rate 113 H 107 H 107 H Respiratory Rate 20 19 21 H Blood Pressure 155/111 H Pulse Oximetry 100 99 99 04/23/25 17:01 04/23/25 17:15 04/23/25 17:16 Temperature Pulse Rate 104 H 110 H 103 H Respiratory Rate 22 H 18 18 Blood Pressure 153/109 H 163/110 H Pulse Oximetry 100 04/23/25 17:30 04/23/25 17:31 04/23/25 17:39 Temperature Pulse Rate 105 H 113 H 111 H Respiratory Rate 27 H 28 H 20 Blood Pressure 150/81 H 150/81 H Pulse Oximetry 98 100 100 04/23/25 17:45 04/23/25 17:46 Temperature Pulse Rate 103 H 105 H Respiratory Rate 22 H 15 Blood Pressure 129/92 H Pulse Oximetry 100 100 Exam Const: General: comfortable and no acute distress Other: Bili obese male patient lying stretcher at this time in no acute distress. HENMT: Face/Nose/Sinus: Normal nares present Mouth: Yes moist mucous membranes Eyes: General: appearance normal, both eyes and all related structures Sclera: sclerae normal Pupils: Equal, round and reactive pupils present EOM: EOMs intact bilaterally Neck: Neck: supple and no JVD Thyroid: thyroid normal Lymphatic: lymphadenopathy not noted Resp: Effort & Inspection: normal respiratory effort Auscultation: clear to auscultation bilaterally Cardio: Rate: tachycardic Rhythm: regular rhythm Heart sounds: no gallops, no murmurs and no rubs GI: Inspection: distended GI Palp: Yes Soft to palpation, No Firmness to palpation present (GI) and Yes Tenderness to palpation present (GI) Auscultation: normal bowel sounds Skin: General skin exam: normal color, no rashes or lesions noted and no erythema Lesions: no lesions noted Rashes: no rashes noted Wounds: no wounds Neuro: General: gait normal Speech: normal speech Motor exam (neuro): 5/5 motor strength present throughout and Normal motor muscle tone present throughout Sensory Exam: normal sensation Extrem: General: normal to inspection, no edema and no pedal edema Other: Freely and equally moves all extremities well without deficit. Psych: Mental Status: mental status grossly normal Affect: normal affect H&P: Results Labs Labs: Short CBC 04/23/25 Range/Units 13:24 WBC 14.8 H (4.5-10.0) K/mm3 Hgb 13.0 L (14.0-18.0) g/dL Hct 40.7 L (42.0-52.0) % Plt Count 402 H (150-375) k/mm3 BMP 04/23/25 13:24 Sodium 137 Potassium 4.0 Chloride 104 Carbon Dioxide 20 L BUN 33 H D Creatinine 1.93 H Glucose 106 Calcium 9.0 Liver Function 04/23/25 Range/Units 13:24 Total Bilirubin 1.2 (0.2-1.3) mg/dL AST 36 (17-59) U/L ALT 26 (6-50) U/L Alkaline Phosphatase 96 (38-126) U/L Albumin 4.0 (3.5-5.1) g/dL Assessment and Plan Assessment and plan (1) Atrial fibrillation with rapid ventricular response: Code(s): I48.91 - Unspecified atrial fibrillation Status: Acute Assessment and Plan: * New onset * Consult Cardiology * ECHO ordered * No Cardizem drip, remains in Fib, but currently rate controlled after a push of Cardizem. * Telemetry * Pt on Xarelto chronically, but is concerned for acute GI Bleed at this time. Will hold Xarelto until GI can see and evaluate tomorrow. * Trend labs and VS. * Check thyroid labs (2) Acute GI bleeding: Code(s): K92.2 - Gastrointestinal hemorrhage, unspecified Status: Acute Assessment and Plan: * Stable H&H. * Dr. Almonte has been consulted. * Will hold Xarelto for tonight, however since patient does have new onset AFib would recommend restarting tomorrow if no plan for GI lab. * Labs reviewed from ER and C diff is negative. * CT abdomen pelvis independently reviewed by this provider that shows an increased attenuation within the cecum in the rectum with surrounding inflammatory change for which acute hemorrhage suspected. * NPO after midnight * Trended monitor labs and vital signs. * Flagyl and Levaquin initiated. * Stool culture obtained given diarrhea. (3) KEITH (acute kidney injury): Code(s): N17.9 - Acute kidney failure, unspecified Status: Acute Assessment and Plan: * Most likely secondary to dehydration from chronic diarrhea. * Baseline is normal to 1. Creatinine today is 1.93. * Continue IV fluid hydration of normal saline at 100 mL/hour. * Trend and monitor renal labs (4) Obesity, morbid, BMI 40.0-49.9: Code(s): E66.01 - Morbid (severe) obesity due to excess calories Status: Chronic Assessment and Plan: * Recommend lifestyle changes that discharge (5) Chronic anticoagulation: Code(s): Z79.01 - medical terminologist (current) use of anticoagulants Status: Chronic Assessment and Plan: * Secondary to history of DVT * Patient takes Xarelto 10 mg daily (6) History of deep vein thrombosis: Code(s): Z86.718 - Personal history of other venous thrombosis and embolism Status: Inactive Assessment and Plan: * Old history Quality VTE Prophylaxis VTE prophylaxis: mechanical ordered Hospitalist MIPS Advance Care Plan I have confirmed that the patient's Advanced Care Plan is present, code status is documented, or surrogate decision maker is listed in patient medical record.: Yes Medication Reconciliation I have utilized all available resources to obtain, update and review the patients current medications (includes all prescriptions, OTC, herbals, cannabis, and nutritional supplements).: Yes
--- NOTE | 2025-04-23 19:20 | PC.NURSE ---
Received report from SILVIO Goldberg for cont. of care. Pt lying on stretcher, respirations even and unlabored. Pt AOx4, updated on plan of care. Pt on cont.compliance monitor and cont. pulse oximeter. VS WNL
[2025-04-23] MEDS: SODIUM CHLORIDE 0.9% IV 1,000 ML 150 ML IV CONT (20:07)
[2025-04-23] MEDS: metroNIDAZOLE 500 MG/ISO 100ML 500 MG/100 ML BAG 100 MG IVPB (20:27)
[2025-04-23 20:40] LABS: Troponin I < 0.012 ng/mL (0.000-0.034)
--- NOTE | 2025-04-23 22:01 | P.CONGI_ITS ---
Assessment and Plan Assessment and plan (1) Hematochezia: Code(s): K92.1 - Melena Status: Acute Assessment and Plan: The patient has a prolongued course of bloody diarrhea and abdominal pain for 4 weeks, for which differential diagnosis includes late onset inflammatory bowel disease, ischemic colitis, or neoplasia. Given the information of having passed parasites on stools, whipworms (Trichuris) and amoeba can also cause colitis. Will order stools for ova and parasites. Antibiotic coverage started according to conversation with ED physician (Levofloxacin and Metronidazole), and will prep tonight for colonoscopy tomorrow. GI Consult Note Consult date/time: 04/23/25 22:01 Reason for consult: bloody diarrhea HPI: Catalina Springer is a 60 year old male with a history of DVT on Xarelto, who was admitted with a 4 week history of bloody diarrhea, about 8-10 bowel movements per day, associated with lower crampy abdominal pain. The patient is not a smoker. 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 His Laboratory data on admission showed : WBC 14.8, Hb 13, Na 137, K 4.0, BUN 33, Creatinine 1.9. Review of Systems 2 Review of Systems: All systems reviewed & are unremarkable except as noted in HPI and below PMFSH Past Medical History Medical History (Updated 04/23/25 @ 20:18 by DENNY Paniagua) Chronic anticoagulation Acute GI bleeding Obesity, morbid, BMI 40.0-49.9 Colonic cryptitis Hemorrhoid GERD (gastroesophageal reflux disease) Loose stools Hematochezia Suprapubic pain Left lower quadrant pain High cholesterol History of blood clots Carpal tunnel syndrome Asthma DVT (deep venous thrombosis) Surgical History Surgical History [place] teeth extracted History of carpal tunnel release Family History Family History Father Heart disease Mother Heart disease Sibling Cerebrovascular accident Social History Social History Smoking status: Never smoker Second hand tobacco smoke exposure: No Alcohol intake: current Drinks per week: 4 Substance use: current Substance use type: marijuana Other substance usage details: DAILY Do You Feel Safe in your Home?: Yes Lack of Transportation: No Lack of Food: Never True Current Housing: I Have Housing Concerned About Future Housing: No Difficulty Paying Gas/Electric Bills: No Difficulty Paying for Meds: No Currently Unemployed: No Education: High School Diploma/GED Difficulty w/ Childcare or Family Care: No Living arrangements: with family Occupation/Education: occupation Gender identity (if verbalized by the patient): Male Spiritual care concerns: No Meds Home Medications and Allergies Home Medications ?Medication ?Instructions ?Recorded ?Confirmed ?Type atorvastatin 40 mg tablet 40 mg PO QPM 04/23/25 04/23/25 History lisinopril 10 1 tablet PO DAILY 04/23/25 04/23/25 History mg-hydrochlorothiazide 12.5 mg tablet rivaroxaban 10 mg tablet (Xarelto) 20 mg PO DAILY 04/23/25 04/23/25 History Allergies Allergy/AdvReac Type Severity Reaction Status Date / Time No Known Allergies Allergy Verified 06/13/24 13:44 Vital Signs Vital Signs - 24 hr 04/23/25 12:46 04/23/25 12:55 04/23/25 12:56 Temperature 98.1 F Pulse Rate 144 H 136 H 129 H Respiratory Rate 18 24 H 25 H Blood Pressure 118/85 102/80 Pulse Oximetry 100 96 96 04/23/25 13:00 04/23/25 13:01 04/23/25 13:15 Temperature Pulse Rate 127 H 126 H 130 H Respiratory Rate 27 H 26 H 13 Blood Pressure 98/62 L Pulse Oximetry 04/23/25 13:16 04/23/25 13:30 04/23/25 13:32 Temperature Pulse Rate 128 H 118 H 124 H Respiratory Rate 22 H 18 24 H Blood Pressure 99/74 L 115/80 Pulse Oximetry 98 90 04/23/25 13:33 04/23/25 13:45 04/23/25 13:46 Temperature Pulse Rate 123 H 120 H 122 H Respiratory Rate 24 H 21 H 17 Blood Pressure 131/88 Pulse Oximetry 93 96 97 04/23/25 14:00 04/23/25 14:01 04/23/25 14:15 Temperature Pulse Rate 126 H 107 H 117 H Respiratory Rate 20 21 H 18 Blood Pressure 136/119 H Pulse Oximetry 97 98 97 04/23/25 14:16 04/23/25 14:25 04/23/25 14:30 Temperature Pulse Rate 111 H 115 H 125 H Respiratory Rate 19 18 20 Blood Pressure 155/124 H 153/105 H Pulse Oximetry 96 96 04/23/25 14:45 04/23/25 14:46 04/23/25 15:00 Temperature Pulse Rate 105 H 118 H 109 H Respiratory Rate 22 H 18 Blood Pressure 158/108 H Pulse Oximetry 04/23/25 15:07 04/23/25 15:15 04/23/25 15:30 Temperature Pulse Rate 116 H 114 H 123 H Respiratory Rate 19 20 18 Blood Pressure 103/63 Pulse Oximetry 04/23/25 16:08 04/23/25 16:09 04/23/25 16:15 Temperature Pulse Rate 121 H 119 H 122 H Respiratory Rate 23 H 21 H 21 H Blood Pressure 132/77 Pulse Oximetry 97 98 98 04/23/25 16:16 04/23/25 16:30 04/23/25 16:31 Temperature Pulse Rate 118 H 112 H 109 H Respiratory Rate 20 21 H 20 Blood Pressure 144/104 H 129/87 Pulse Oximetry 98 99 99 04/23/25 16:45 04/23/25 16:46 04/23/25 17:00 Temperature Pulse Rate 113 H 107 H 107 H Respiratory Rate 20 19 21 H Blood Pressure 155/111 H Pulse Oximetry 100 99 99 04/23/25 17:01 04/23/25 17:15 04/23/25 17:16 Temperature Pulse Rate 104 H 110 H 103 H Respiratory Rate 22 H 18 18 Blood Pressure 153/109 H 163/110 H Pulse Oximetry 100 04/23/25 17:30 04/23/25 17:31 04/23/25 17:39 Temperature Pulse Rate 105 H 113 H 111 H Respiratory Rate 27 H 28 H 20 Blood Pressure 150/81 H 150/81 H Pulse Oximetry 98 100 100 04/23/25 17:45 04/23/25 17:46 04/23/25 19:10 Temperature Pulse Rate 103 H 105 H 101 H Respiratory Rate 22 H 15 24 H Blood Pressure 129/92 H 121/66 Pulse Oximetry 100 100 100 04/23/25 19:15 04/23/25 19:16 04/23/25 19:31 Temperature 98.4 F Pulse Rate 98 100 108 H Respiratory Rate 18 26 H 17 Blood Pressure 113/79 114/86 Pulse Oximetry 99 99 99 04/23/25 19:45 04/23/25 19:46 04/23/25 20:48 Temperature 98.4 F Pulse Rate 94 89 98 Respiratory Rate 15 22 H 20 Blood Pressure 113/87 143/93 H Pulse Oximetry 99 99 100 Exam 2 Const: General: cooperative and healthy appearing Resp: Effort & Inspection: normal respiratory effort and able to speak in complete sentences Auscultation: clear to auscultation bilaterally Cardio: Rate: regular rate Rhythm: regular rhythm GI: Inspection: normal to inspection GI Palp: No No hepatosplenomegaly present Auscultation: normal bowel sounds Rectal Exam: deferred Skin: General skin exam: normal color Psych: Appearance: grossly normal Mental Status: mental status grossly normal Results Labs 04/24/25 00:58 04/23/25 13:24 Labs: Short CBC 04/23/25 Range/Units 13:24 WBC 14.8 H (4.5-10.0) K/mm3 Hgb 13.0 L (14.0-18.0) g/dL Hct 40.7 L (42.0-52.0) % Plt Count 402 H (150-375) k/mm3 BMP 04/23/25 13:24 Sodium 137 Potassium 4.0 Chloride 104 Carbon Dioxide 20 L BUN 33 H D Creatinine 1.93 H Glucose 106 Calcium 9.0 Cardiac Enzymes 04/23/25 Range/Units 13:23 Troponin I < 0.012 (0.000-0.034) ng/mL Liver Function 04/23/25 Range/Units 13:24 Total Bilirubin 1.2 (0.2-1.3) mg/dL AST 36 (17-59) U/L ALT 26 (6-50) U/L Alkaline Phosphatase 96 (38-126) U/L Albumin 4.0 (3.5-5.1) g/dL
--- NOTE | 2025-04-23 22:09 | ADMGEN ---
This patient, Catalina Springer, was admitted to Medical Room 342-01. Patient/family oriented to hospital policies and general routines including ID bracelet, bed and alarms, visiting hours, pain management, procedures, bathroom and other care routines, personal items, smoking policy, room service/diet, and visiting hours. Information on how to activate the Rapid Response Team has been discussed. Patient/Family are encouraged to report perceived risks to care and to ask questions if they do not understand what they are told or what they should do.
[2025-04-23] MEDS: polyethylene glycoL 3350 238 GM BOTTLE 119 GM PO (22:30)
[2025-04-23 22:45] LABS: Troponin I < 0.012 ng/mL (0.000-0.034)
[2025-04-24] VITALS (17 sets, daily range): BP systolic 80–148; BP diastolic 54–97; PULSE 80–140; RESP 15–22; TEMP 36.3–37.1; O2SAT 93–100
--- NOTE | 2025-04-24 | ECHO_ITS ---
Patient Info Name: Catalina Springer Age: 60 years : 1965 Gender: Male Ht: 73 in Wt: 328 lbs BSA: 2.83 m2 HR: 105 bpm BP: 102 / 68 mmHg Heart Rhythm: Atrial Fibrillation Technical Quality: Good Exam Date: 04/24/2025 9:28 AM Patient Status: I Admit Date: 04/23/2025 Exam Type: CA echo doppler color flow Complete two-dimensional, color flow and Doppler transthoracic echocardiogram is performed. Staff Referring Physician: Misha Rodriguez MD Box Sealing Machine Catcher: Keyona Spencer Attending Provider: Orlando Bowden Summary 1. Complete two-dimensional, color flow and Doppler transthoracic echocardiogram is performed. 2. Left ventricular chamber dimension is normal. 3. Left ventricular systolic function is normal, estimated at 60-65. 4. The left ventricular diastolic function is normal. 5. E/e' 8 is minimally elevated. 6. Left atrial chamber dimension is mildly enlarged. 7. There is mild aortic valve sclerosis. 8. There is mild mitral valve regurgitation. 9. There is trace tricuspid valve regurgitation. Left Ventricle E/e' 8 is minimally elevated. Left ventricular chamber dimension is normal. Left ventricular systolic function is normal, estimated at 60-65. The left ventricular diastolic function is normal. Right Ventricle Right ventricular chamber dimension is normal. Right ventricular systolic function is normal. Left Atria Left atrial chamber dimension is mildly enlarged. Right Atria Right atrial chamber dimension is normal. Aortic Valve The aortic valve is trileaflet. There is mild aortic valve sclerosis. There is no aortic valve stenosis. There is no aortic valve regurgitation. Pulmonic Valve There is no pulmonic regurgitation. Mitral Valve There is no mitral valve stenosis. There is mild mitral valve regurgitation. Tricuspid Valve There is trace tricuspid valve regurgitation. RVSP is not measured due to an inadequate TR jet. Pericardium/Pleural There is no pericardial effusion. Inferior Vena Cava Normal inferior vena cava with >50% collapse upon inspiration consistent with normal right atrial pressure, 5 mmHg. Aorta The aortic root size at the sinus of Valsalva is normal. Left Ventricular Outflow Tract Name Value Normal LVOT 2D LVOT Diameter 2.0 cm LVOT Doppler LVOT Peak Velocity 111 cm/s LVOT Peak Gradient 5 mmHg LVOT Mean Gradient 3 mmHg LVOT VTI 19 cm LVOT VTI/AV VTI Ratio 0.6 LVOT Stroke Volume 60 ml LVOT CO 6.0 l/min LVOT CI 2.1 l/min/m2 Pulmonic Valve Name Value Normal RVOT Doppler RVOT Peak Velocity 119 cm/s RVOT Peak Gradient 6 mmHg PV Doppler PV Peak Velocity 177 cm/s PV Peak Gradient 13 mmHg Mitral Valve Name Value Normal MV Diastolic Function MV E Peak Velocity 101 cm/s MV A Peak Velocity 31 cm/s MV E/A 3.2 MV Decel Time (PW) 188 ms MV Annular TDI MV E/e' (Septal) 8.4 MV E/e' (Lateral) 8.6 MV E/e' (Average) 8.5 Tricuspid Valve Name Value Normal Estimated PAP/RSVP RA Pressure 5 mmHg <=5 TV Annular TDI TV Lateral Roxanne s' Velocity 10.9 cm/s >=9.5 Aortic Valve Name Value Normal AV Doppler AV Peak Velocity 195 cm/s AV Peak Gradient 11 mmHg AV Mean Gradient 6 mmHg AV VTI 31 cm AV Area (Cont Eq VTI) 2.0 cm2 >=3.0 AV Area (Cont Eq Aidan) 1.8 cm2 AV DI (Aidan) 0.57 AV Regurgitation 2D LVOT Area 3.1 cm2 Ventricles Name Value Normal LV Dimensions 2D/MM IVS Diastolic Thickness (2D) 1.1 cm 0.6-1.0 LVID Diastole (2D) 4.9 cm 4.2-5.8 LVIW Diastolic Thickness (2D) 1.2 cm 0.6-1.0 LVID Systole (2D) 3.0 cm 2.5-4.0 LVOT Diameter 2.0 cm LV Mass (2D Cubed) 217.28 g 88.00-224.00 LV Mass Index (2D Cubed) 77 g/m2 49-115 Relative Wall Thickness (2D) 0.50 <=0.42 LV Fractional Shortening/Ejection Fraction 2D/MM LV Fractional Shortening (2D) 39 % 25-43 LV EF (2D Teichholz) 69 % LV Diastolic Volume (4C MOD) 84 ml LV EF (4C MOD) 57 % LV Diastolic Volume (2C MOD) 143 ml LV EF (2C MOD) 57 % LV Diastolic Volume (BP MOD) 117 ml 62-150 LV Diastolic Volume Index (BP MOD) 41 ml/m2 34-74 LV Systolic Volume (BP MOD) 50 ml 21-61 LV Systolic Volume Index (BP MOD) 18 ml/m2 11-31 LV EF (BP MOD) 57 % 52-72 LV Diastolic Length (4C) 7.7 cm LV Systolic Length (4C) 6.6 cm LV Stroke Volume (4C MOD) 48 ml Atria Name Value Normal LA Dimensions LA Volume (4C A-L) 66 ml LA Volume (BP A-L) 70 ml RA Dimensions RA Systolic Major [place] Length (4C) 7.2 cm 2.1-2.7 RA Area (4C) 26.8 cm2 <=18.0 Report Signatures
[2025-04-24 01:02] LABS: Hematocrit 37.3 % (42.0-52.0); Hemoglobin 11.9 g/dL (14.0-18.0)
[2025-04-24 01:25] LABS: Troponin I < 0.012 ng/mL (0.000-0.034)
[2025-04-24] MEDS: dilTIAZem HCL 30 MG TABLET PO ×4 (01:56→23:11)
[2025-04-24] MEDS: metroNIDAZOLE 500 MG/ISO 100ML 500 MG/100 ML BAG 100 MG IVPB ×2 (04:31→12:16)
[2025-04-24] MEDS: polyethylene glycoL 3350 238 GM BOTTLE 119 GM PO ×2 (05:00→08:48)
--- NOTE | 2025-04-24 07:20 | P.PNIM_ITS ---
Progress Note: A&P Assessment and Plan (1) Atrial fibrillation with rapid ventricular response: Code(s): I48.91 - Unspecified atrial fibrillation Status: Acute Assessment and Plan: * New onset * ECHO ordered * No Cardizem drip, remains in Fib, but currently rate controlled after a push of Cardizem. * Telemetry * Pt on Xarelto chronically, but is concerned for acute GI Bleed at this time. Will hold Xarelto until GI can see and evaluate tomorrow. * Trend labs and VS. * Check thyroid labs * Cardiac consult pending, appreciate recommendations * Currently on PO Diltiazem 30mg PO q6hr (2) Acute GI bleeding: Code(s): K92.2 - Gastrointestinal hemorrhage, unspecified Status: Acute Assessment and Plan: * Stable H&H. * Will hold Xarelto for tonight, however since patient does have new onset AFib would recommend restarting tomorrow if no plan for GI lab. * Labs reviewed from ER and C diff is negative. * CT abdomen pelvis independently reviewed by this provider that shows an increased attenuation within the cecum in the rectum with surrounding inflammatory change for which acute hemorrhage suspected. * NPO after midnight * Trended monitor labs and vital signs. * Flagyl and Levaquin initiated. * Stool culture obtained given diarrhea * GI consult * Colonoscopy planned for today (3) KEITH (acute kidney injury): Code(s): N17.9 - Acute kidney failure, unspecified Status: Acute Assessment and Plan: * Most likely secondary to dehydration from chronic diarrhea. * Baseline is normal to 1. Creatinine today is 1.93. * Continue IV fluid hydration of normal saline at 100 mL/hour. * Trend and monitor renal labs * 04/24: Cr 1.15 * Improved (4) Obesity, morbid, BMI 40.0-49.9: Code(s): E66.01 - Morbid (severe) obesity due to excess calories Status: Chronic Assessment and Plan: * Recommend lifestyle changes that discharge (5) Chronic anticoagulation: Code(s): Z79.01 - long term (current) use of anticoagulants Status: Chronic Assessment and Plan: * Secondary to history of DVT * Patient takes Xarelto 10 mg daily * Holding Xarelto for colonoscopy (6) History of deep vein thrombosis: Code(s): Z86.718 - Personal history of other venous thrombosis and embolism Status: Inactive Assessment and Plan: * Old history Subjective Date/time seen: 04/24/25 07:20 Interval history: 60-year-old male patient with history of previous DVT on Xarelto, hypertension, hyperlipidemia, asthma, GERD and morbid obesity who comes to the ER with complaints of having two months of blood in his stool. 04/24/2025 Patient sitting comfortably in bed at time of examination. Colonoscopy planned for today. Cardiac consult still pending for new onset AFib with RVR as well. Echocardiogram obtained, no evidence of arrhythmia or reduced EF. At this time still endorses some generalized abdominal discomfort, more intense in the lower abdomen, but denies any chest pain, shortness of breath, dizziness. Endorses several episodes of diarrhea today, worse than usual, likely made worsened by colonoscopy prep. Review of Systems Review of Systems: All systems reviewed & are unremarkable except as noted in HPI and below Exam Const: General: comfortable and no acute distress Other: Bili obese male patient lying stretcher at this time in no acute distress. HENMT: Face/Nose/Sinus: Normal nares present Mouth: Yes moist mucous membranes Eyes: General: appearance normal, both eyes and all related structures Sclera: sclerae normal Pupils: Equal, round and reactive pupils present EOM: EOMs intact bilaterally Neck: Neck: supple and no JVD Thyroid: thyroid normal Lymphatic: lymphadenopathy not noted Resp: Effort & Inspection: normal respiratory effort Auscultation: clear to auscultation bilaterally Cardio: Rate: tachycardic Rhythm: regular rhythm Heart sounds: no gallops, no murmurs and no rubs GI: Inspection: distended Auscultation: normal bowel sounds Skin: General skin exam: normal color, no rashes or lesions noted, no erythema, No lesion and No rashes Lesions: no lesions noted Rashes: no rashes noted Wounds: no wounds Neuro: General: gait normal Cranial nerves: Yes Equal, round and reactive pupils present Speech: normal speech Motor exam (neuro): 5/5 motor strength present throughout and Normal motor muscle tone present throughout Sensory Exam: normal sensation Extrem: General: normal to inspection, no edema and no pedal edema Other: Freely and equally moves all extremities well without deficit. Psych: Mental Status: mental status grossly normal Affect: normal affect Objective Data Vital Signs Vital Signs: Vital Signs - 24 hr 04/23/25 12:46 04/23/25 12:55 04/23/25 12:56 Temperature 98.1 F Pulse Rate 144 H 136 H 129 H Respiratory Rate 18 24 H 25 H Blood Pressure 118/85 102/80 Pulse Oximetry 100 96 96 Oxygen Delivery 04/23/25 13:00 04/23/25 13:01 04/23/25 13:15 Temperature Pulse Rate 127 H 126 H 130 H Respiratory Rate 27 H 26 H 13 Blood Pressure 98/62 L Pulse Oximetry Oxygen Delivery 04/23/25 13:16 04/23/25 13:30 04/23/25 13:32 Temperature Pulse Rate 128 H 118 H 124 H Respiratory Rate 22 H 18 24 H Blood Pressure 99/74 L 115/80 Pulse Oximetry 98 90 Oxygen Delivery 04/23/25 13:33 04/23/25 13:45 04/23/25 13:46 Temperature Pulse Rate 123 H 120 H 122 H Respiratory Rate 24 H 21 H 17 Blood Pressure 131/88 Pulse Oximetry 93 96 97 Oxygen Delivery 04/23/25 14:00 04/23/25 14:01 04/23/25 14:15 Temperature Pulse Rate 126 H 107 H 117 H Respiratory Rate 20 21 H 18 Blood Pressure 136/119 H Pulse Oximetry 97 98 97 Oxygen Delivery 04/23/25 14:16 04/23/25 14:25 04/23/25 14:30 Temperature Pulse Rate 111 H 115 H 125 H Respiratory Rate 19 18 20 Blood Pressure 155/124 H 153/105 H Pulse Oximetry 96 96 Oxygen Delivery 04/23/25 14:45 04/23/25 14:46 04/23/25 15:00 Temperature Pulse Rate 105 H 118 H 109 H Respiratory Rate 22 H 18 Blood Pressure 158/108 H Pulse Oximetry Oxygen Delivery 04/23/25 15:07 04/23/25 15:15 04/23/25 15:30 Temperature Pulse Rate 116 H 114 H 123 H Respiratory Rate 19 20 18 Blood Pressure 103/63 Pulse Oximetry Oxygen Delivery 04/23/25 16:08 04/23/25 16:09 04/23/25 16:15 Temperature Pulse Rate 121 H 119 H 122 H Respiratory Rate 23 H 21 H 21 H Blood Pressure 132/77 Pulse Oximetry 97 98 98 Oxygen Delivery 04/23/25 16:16 04/23/25 16:30 04/23/25 16:31 Temperature Pulse Rate 118 H 112 H 109 H Respiratory Rate 20 21 H 20 Blood Pressure 144/104 H 129/87 Pulse Oximetry 98 99 99 Oxygen Delivery 04/23/25 16:45 04/23/25 16:46 04/23/25 17:00 Temperature Pulse Rate 113 H 107 H 107 H Respiratory Rate 20 19 21 H Blood Pressure 155/111 H Pulse Oximetry 100 99 99 Oxygen Delivery 04/23/25 17:01 04/23/25 17:15 04/23/25 17:16 Temperature Pulse Rate 104 H 110 H 103 H Respiratory Rate 22 H 18 18 Blood Pressure 153/109 H 163/110 H Pulse Oximetry 100 Oxygen Delivery 04/23/25 17:30 04/23/25 17:31 04/23/25 17:39 Temperature Pulse Rate 105 H 113 H 111 H Respiratory Rate 27 H 28 H 20 Blood Pressure 150/81 H 150/81 H Pulse Oximetry 98 100 100 Oxygen Delivery 04/23/25 17:45 04/23/25 17:46 04/23/25 19:10 Temperature Pulse Rate 103 H 105 H 101 H Respiratory Rate 22 H 15 24 H Blood Pressure 129/92 H 121/66 Pulse Oximetry 100 100 100 Oxygen Delivery 04/23/25 19:15 04/23/25 19:16 04/23/25 19:31 Temperature 98.4 F Pulse Rate 98 100 108 H Respiratory Rate 18 26 H 17 Blood Pressure 113/79 114/86 Pulse Oximetry 99 99 99 Oxygen Delivery 04/23/25 19:45 04/23/25 19:46 04/23/25 20:48 Temperature 98.4 F Pulse Rate 94 89 98 Respiratory Rate 15 22 H 20 Blood Pressure 113/87 143/93 H Pulse Oximetry 99 99 100 Oxygen Delivery 04/24/25 00:00 04/24/25 00:13 04/24/25 00:39 Temperature Pulse Rate 140 H 112 H Respiratory Rate 16 Blood Pressure 119/55 L Pulse Oximetry Oxygen Delivery Room Air 04/24/25 04:00 04/24/25 04:23 Temperature 98.8 F Pulse Rate 110 H 112 H Respiratory Rate 20 Blood Pressure 102/68 Pulse Oximetry 95 Oxygen Delivery Intake/Output Intake/Output: Intake & Output 04/21/25 04/22/25 04/23/25 04/24/25 23:59 23:59 23:59 23:59 Intake Total 2645 100 Balance 2645 100 Meds/Results Medications: Active Medications Generic Name Dose Route Start Last Admin Trade Name Freq PRN Reason Stop Dose Admin Acetaminophen 650 mg 04/23/25 17:41 Acetaminophen 325 Mg Tablet PO Q4H PRN Mild Pain (1-3) or Fever Diltiazem HCl 30 mg 04/24/25 01:45 04/24/25 06:28 Diltiazem Hcl 30 Mg Tablet PO 30 mg Q6HR MERLY Administration Metronidazole 500 mg in 100 mls @ 100 mls/hr 04/23/25 20:00 04/24/25 05:31 Flagyl 500 Mg/Iso Soln 100 Ml IVPB Infused Q8H MERLY Infusion Sodium Chloride 1,000 mls @ 100 mls/hr 04/23/25 17:45 04/23/25 23:05 Normal Saline Iv IV CONT 100 mls/hr .Q10H MERLY Infusion Levofloxacin/Dextrose 500 mg in 100 mls @ 100 mls/hr 04/24/25 18:00 Levaquin 500 Mg/D5w 100 Ml IVPB Q24H MERLY Perflutren Lipid Microsphere 0 ml 04/23/25 20:19 Perflutren Lipid Microspheres 1.5 Ml Vial Diluted To 10 Ml Total Volume IV PUSH 04/26/25 20:19 ONCE PRN adequate visualization Protocol Polyethylene Glycol 119 gm 04/24/25 09:00 Polyethylene Glycol 3350 238 Gm Bottle PO 04/24/25 09:01 ONCE ONE Radiology Results: ITS Impressions Abdomen/Pelvis CT 04/23/25 16:13 IMPRESSION: Increased attenuation within the cecum and rectum with surrounding inflammatory change for which acute hemorrhage is suspected. Labs Labs: Laboratory Results - last 24 hr 04/23/25 04/23/25 04/23/25 13:23 13:24 15:05 WBC 14.8 H RBC 4.49 L Hgb 13.0 L Hct 40.7 L MCV 90.6 MCH 29.0 MCHC 31.9 L RDW 15.6 H Plt Count 402 H MPV 9.8 Immature Gran % (Auto) 0.7 H Neut % (Auto) 56.9 Lymph % (Auto) 24.7 Ida % (Auto) 9.9 H Eos % (Auto) 7.0 H Baso % (Auto) 0.8 Lymph # (Auto) 3.66 H Ida # (Auto) 1.5 H Eos # (Auto) 1.0 H Baso # (Auto) 0.1 Abs Immat Gran (auto) 0.11 H Absolute Neuts (auto) 8.4 H Absolute Nucleated RBC 0.000 Nucleated RBC % 0.0 PT 18.7 H INR 1.6 APTT 33.5 Sodium 137 Potassium 4.0 Chloride 104 Carbon Dioxide 20 L Anion Gap 13 H BUN 33 H D Creatinine 1.93 H Estim Creat Clear Calc 58 Estimated GFR 36 L Glucose 106 Lactic Acid 1.0 Calcium 9.0 Total Bilirubin 1.2 AST 36 ALT 26 Alkaline Phosphatase 96 Troponin I < 0.012 Total Protein 7.8 Albumin 4.0 C. difficile (PCR) Blood Type B Positive Antibody Screen Negative 04/23/25 04/23/25 04/24/25 16:18 22:08 00:58 WBC RBC Hgb 11.9 L Hct 37.3 L MCV MCH MCHC RDW Plt Count MPV Immature Gran % (Auto) Neut % (Auto) Lymph % (Auto) Ida % (Auto) Eos % (Auto) Baso % (Auto) Lymph # (Auto) Ida # (Auto) Eos # (Auto) Baso # (Auto) Abs Immat Gran (auto) Absolute Neuts (auto) Absolute Nucleated RBC Nucleated RBC % PT INR APTT Sodium Potassium Chloride Carbon Dioxide Anion Gap BUN Creatinine Estim Creat Clear Calc Estimated GFR Glucose Lactic Acid Calcium Total Bilirubin AST ALT Alkaline Phosphatase Troponin I < 0.012 < 0.012 Total Protein Albumin C. difficile (PCR) Negative Blood Type Antibody Screen Quality VTE Prophylaxis VTE prophylaxis: mechanical ordered
[2025-04-24 08:25] LABS: Basophils Absolute Auto 0.1 K/mm3 (0.0-0.1); Basophils Percent Auto 0.7 % (0.2-1.2); Eosinophils Absolute Auto 1.2 K/mm3 (0-0.3); Eosinophils Percent Auto 11.4 % (0-4.4); Hematocrit 37.9 % (42.0-52.0); Hemoglobin 12.2 g/dL (14.0-18.0); Immature Granulocyte Absolute 0.06 K/mm3 (0.00-0.031); Immature Granulocyte Percent A 0.5 % (0-0.5); Lymphocytes Absolute Auto 2.65 K/mm3 (0.9-3.2); Lymphocytes Percent Auto 24.3 % (18.3-44.2); Mean Corpuscular HGB Conc 32.2 g/dl (32-36); Mean Corpuscular Hemoglobin 29.8 pg (26-34); Mean Corpuscular Volume 92.4 fl (80-100); Mean Platelet Volume 10.1 fl (7.4-10.4); Monocytes Absolute Auto 1.1 K/mm3 (0.1-0.6); Monocytes Percent Auto 10.2 % (2.6-8.5); Neutrophils Absolute Auto 5.8 K/mm3 (1.3-6.7); Neutrophils Percent Auto 52.9 % (45.5-73.1); Platelet Count Result 343 k/mm3 (150-375); Red Cell Distribution Width 15.5 % (11.5-14.5); White Blood Count 10.9 K/mm3 (4.5-10.0)
--- NOTE | 2025-04-24 08:35 | PM.CNCAR ---
Assessment and Plan Assessment and plan (1) Atrial fibrillation with rapid ventricular response: Code(s): I48.91 - Unspecified atrial fibrillation Status: Acute Assessment and Plan: This is a new diagnosis. Chronicity is unknown. Heart rate is reasonably controlled with oral diltiazem. As we are unable to anticoagulate him for the time being, we will pursue a rate control strategy as cardioversion would require him to commit to anticoagulation for at least 30 days. Continue diltiazem 30 mg p.o. q.6 hours. If his heart rate remains controlled on this dose, can transition to long-acting diltiazem As above, anticoagulation is contraindicated currently. Await results of colonoscopy which is scheduled to take place this afternoon. Echocardiogram showed normal LV systolic function, no significant valvular abnormalities Will check an ApneaLink tonight Will arrange for outpatient follow-up in our office. History of Present Illness History of Present Illness Consult date/time: 04/24/25 08:35 Requesting physician: Bola Razo PA-C Consult reason: atrial fibrillation Reason For Visit: Bloody Diarrhea/KEITH/AFIB with RVR Narrative: Catalina Springer is a 60 year old male with history of DVT who is chronically anticoagulated. He presents to the hospital with a chief complaint of bloody stools for two months. Cardiology is consulted for atrial fibrillation with rapid ventricular response. This is a new diagnosis for the patient. Patient denies feeling any palpitations, shortness of breath, chest pain. He does report increasing exertional fatigue over the past couple of months. He also endorses intermittent lower extremity swelling. He has been placed on oral diltiazem and his heart rate now is reasonably controlled. He is awaiting a colonoscopy and is complaining of being hungry but other than that is comfortable. Review of Systems Review of Systems: All systems reviewed & are unremarkable except as noted in HPI and below PMFSH Past Medical History Medical History Chronic anticoagulation Acute GI bleeding Obesity, morbid, BMI 40.0-49.9 Colonic cryptitis Hemorrhoid GERD (gastroesophageal reflux disease) Loose stools Hematochezia Suprapubic pain Left lower quadrant pain High cholesterol History of blood clots Carpal tunnel syndrome Asthma DVT (deep venous thrombosis) Surgical History Surgical History [place] teeth extracted History of carpal tunnel release Family History Family History Father Heart disease Mother Heart disease Sibling Cerebrovascular accident Social History Social History Smoking status: Never smoker Second hand tobacco smoke exposure: No Alcohol intake: current Drinks per week: 4 Substance use: current Substance use type: marijuana Other substance usage details: DAILY Do You Feel Safe in your Home?: Yes Lack of Transportation: No Lack of Food: Never True Current Housing: I Have Housing Concerned About Future Housing: No Difficulty Paying Gas/Electric Bills: No Difficulty Paying for Meds: No Currently Unemployed: No Education: High School Diploma/GED Difficulty w/ Childcare or Family Care: No Living arrangements: with family Occupation/Education: occupation Gender identity (if verbalized by the patient): Male Spiritual care concerns: No Meds Home Medications and Allergies Home Medications ?Medication ?Instructions ?Recorded ?Confirmed ?Type atorvastatin 40 mg tablet 40 mg PO QPM 04/23/25 04/23/25 History lisinopril 10 1 tablet PO DAILY 04/23/25 04/23/25 History mg-hydrochlorothiazide 12.5 mg tablet rivaroxaban 10 mg tablet (Xarelto) 20 mg PO DAILY 04/23/25 04/23/25 History Allergies Allergy/AdvReac Type Severity Reaction Status Date / Time No Known Allergies Allergy Verified 06/13/24 13:44 Vital Signs Vital Signs - 24 hr 04/23/25 12:46 04/23/25 12:55 04/23/25 12:56 Temperature 36.7 C Pulse Rate 144 H 136 H 129 H Respiratory Rate 18 24 H 25 H Blood Pressure 118/85 102/80 Pulse Oximetry 100 96 96 Oxygen Delivery 04/23/25 13:00 04/23/25 13:01 04/23/25 13:15 Temperature Pulse Rate 127 H 126 H 130 H Respiratory Rate 27 H 26 H 13 Blood Pressure 98/62 L Pulse Oximetry Oxygen Delivery 04/23/25 13:16 04/23/25 13:30 04/23/25 13:32 Temperature Pulse Rate 128 H 118 H 124 H Respiratory Rate 22 H 18 24 H Blood Pressure 99/74 L 115/80 Pulse Oximetry 98 90 Oxygen Delivery 04/23/25 13:33 04/23/25 13:45 04/23/25 13:46 Temperature Pulse Rate 123 H 120 H 122 H Respiratory Rate 24 H 21 H 17 Blood Pressure 131/88 Pulse Oximetry 93 96 97 Oxygen Delivery 04/23/25 14:00 04/23/25 14:01 04/23/25 14:15 Temperature Pulse Rate 126 H 107 H 117 H Respiratory Rate 20 21 H 18 Blood Pressure 136/119 H Pulse Oximetry 97 98 97 Oxygen Delivery 04/23/25 14:16 04/23/25 14:25 04/23/25 14:30 Temperature Pulse Rate 111 H 115 H 125 H Respiratory Rate 19 18 20 Blood Pressure 155/124 H 153/105 H Pulse Oximetry 96 96 Oxygen Delivery 04/23/25 14:45 04/23/25 14:46 04/23/25 15:00 Temperature Pulse Rate 105 H 118 H 109 H Respiratory Rate 22 H 18 Blood Pressure 158/108 H Pulse Oximetry Oxygen Delivery 04/23/25 15:07 04/23/25 15:15 04/23/25 15:30 Temperature Pulse Rate 116 H 114 H 123 H Respiratory Rate 19 20 18 Blood Pressure 103/63 Pulse Oximetry Oxygen Delivery 04/23/25 16:08 04/23/25 16:09 04/23/25 16:15 Temperature Pulse Rate 121 H 119 H 122 H Respiratory Rate 23 H 21 H 21 H Blood Pressure 132/77 Pulse Oximetry 97 98 98 Oxygen Delivery 04/23/25 16:16 04/23/25 16:30 04/23/25 16:31 Temperature Pulse Rate 118 H 112 H 109 H Respiratory Rate 20 21 H 20 Blood Pressure 144/104 H 129/87 Pulse Oximetry 98 99 99 Oxygen Delivery 04/23/25 16:45 04/23/25 16:46 04/23/25 17:00 Temperature Pulse Rate 113 H 107 H 107 H Respiratory Rate 20 19 21 H Blood Pressure 155/111 H Pulse Oximetry 100 99 99 Oxygen Delivery 04/23/25 17:01 04/23/25 17:15 04/23/25 17:16 Temperature Pulse Rate 104 H 110 H 103 H Respiratory Rate 22 H 18 18 Blood Pressure 153/109 H 163/110 H Pulse Oximetry 100 Oxygen Delivery 04/23/25 17:30 04/23/25 17:31 04/23/25 17:39 Temperature Pulse Rate 105 H 113 H 111 H Respiratory Rate 27 H 28 H 20 Blood Pressure 150/81 H 150/81 H Pulse Oximetry 98 100 100 Oxygen Delivery 04/23/25 17:45 04/23/25 17:46 04/23/25 19:10 Temperature Pulse Rate 103 H 105 H 101 H Respiratory Rate 22 H 15 24 H Blood Pressure 129/92 H 121/66 Pulse Oximetry 100 100 100 Oxygen Delivery 04/23/25 19:15 04/23/25 19:16 04/23/25 19:31 Temperature 36.9 C Pulse Rate 98 100 108 H Respiratory Rate 18 26 H 17 Blood Pressure 113/79 114/86 Pulse Oximetry 99 99 99 Oxygen Delivery 04/23/25 19:45 04/23/25 19:46 04/23/25 20:48 Temperature 36.9 C Pulse Rate 94 89 98 Respiratory Rate 15 22 H 20 Blood Pressure 113/87 143/93 H Pulse Oximetry 99 99 100 Oxygen Delivery 04/24/25 00:00 04/24/25 00:13 04/24/25 00:39 Temperature Pulse Rate 140 H 112 H Respiratory Rate 16 Blood Pressure 119/55 L Pulse Oximetry Oxygen Delivery Room Air 04/24/25 04:00 04/24/25 04:23 Temperature 37.1 C Pulse Rate 110 H 112 H Respiratory Rate 20 Blood Pressure 102/68 Pulse Oximetry 95 Oxygen Delivery Exam Const: General: comfortable, no acute distress, alert and awake Orientation/consciousness: patient oriented x3 Other: Obese HENMT: Head: normal to inspection Eyes: General: appearance normal, both eyes and all related structures Pupils: Equal, round and reactive pupils present Neck: Neck: normal visual inspection and supple Carotids: normal carotid upstroke Resp: Effort & Inspection: normal respiratory effort Auscultation: clear to auscultation bilaterally Cardio: Rate: regular rate Rhythm: abnormal rhythm irregularly irregular Heart sounds: S1 normal heart sound present, S2 normal heart sound present and no murmurs GI: Auscultation: normal bowel sounds Skin: General skin exam: normal color Neuro: General: patient oriented x3 Cranial nerves: Yes Equal, round and reactive pupils present Extrem: General: normal to inspection Other: No edema Psych: Appearance: grossly normal Mental Status: mental status grossly normal Results Labs and Meds 06/27/25 08:03 04/24/25 08:03 Lab results: Cardiac Enzymes 04/23/25 04/23/25 04/23/25 Range/Units 13:23 13:24 22:08 AST 36 (17-59) U/L Troponin I < 0.012 < 0.012 (0.000-0.034) ng/mL 04/24/25 Range/Units 00:58 AST (17-59) U/L Troponin I < 0.012 (0.000-0.034) ng/mL Coagulation 04/23/25 Range/Units 13:24 PT 18.7 H (11.1-14.7) Seconds APTT 33.5 (22.3-36.8) Seconds CBC 04/23/25 04/24/25 04/24/25 Range/Units 13:24 00:58 08:03 WBC 14.8 H 10.9 H (4.5-10.0) K/mm3 RBC 4.49 L 4.10 L (4.6-6.20) M/mm3 Hgb 13.0 L 11.9 L 12.2 L (14.0-18.0) g/dL Hct 40.7 L 37.3 L 37.9 L (42.0-52.0) % Plt Count 402 H 343 (150-375) k/mm3 Lymph # (Auto) 3.66 H 2.65 (0.9-3.2) K/mm3 [place] # (Auto) 1.5 H 1.1 H (0.1-0.6) K/mm3 Eos # (Auto) 1.0 H 1.2 H (0-0.3) K/mm3 Baso # (Auto) 0.1 0.1 (0.0-0.1) K/mm3 Comprehensive Metabolic Panel 04/23/25 Range/Units 13:24 Sodium 137 (137-145) mmol/L Potassium 4.0 (3.4-5.0) mmol/L Chloride 104 (98-107) mmol/L Carbon Dioxide 20 L (22-30) mmol/L BUN 33 H D (9-20) mg/dL Creatinine 1.93 H (0.7-1.3) mg/dL Glucose 106 (65-110) mg/dL Calcium 9.0 (8.4-10.2) mg/dL AST 36 (17-59) U/L ALT 26 (6-50) U/L Alkaline Phosphatase 96 (38-126) U/L Total Protein 7.8 (6.3-8.2) g/dL Albumin 4.0 (3.5-5.1) g/dL Intake and Output 04/23/25 04/24/25 04/24/25 23:59 07:59 15:59 Intake Total 2645 100 Balance 2645 100 Intake: IV 2645 100 Sodium Chloride 0.9% IV 1,000 2445 ml @ 100 mls/hr IV CONT .Q10H [facility] Rx#:[id number] levoFLOXacin 500 MG/D5W 100 ML 100 500 mg In 100 ml @ 100 mls/hr IVPB ONCE STA Rx#:[id number] metroNIDAZOLE 500 MG/ISO 100ML 100 100 500 mg In 100 ml @ 100 mls/hr IVPB Q8H [facility] Rx#:[id number] Other: # Unmeasured Voids 3 Number of Bowel Movements Today 5
[2025-04-24 08:39] LABS: INR 1.2; Prothrombin Time 14.8 Seconds (11.1-14.7)
[2025-04-24 08:40] LABS: Partial Thromboplastin Time 28.3 Seconds (22.3-36.8)
[2025-04-24 09:00] LABS: Alanine Aminotransferase 26 U/L (6-50); Albumin Level 3.5 g/dL (3.5-5.1); Alkaline Phosphatase 75 U/L (38-126); Anion Gap 8 mmol/L (4-12); Aspartate Amino Transferase 35 U/L (17-59); Bilirubin,Total 1.1 mg/dL (0.2-1.3); Blood Urea Nitrogen 23 mg/dL (9-20); Calcium 8.4 mg/dL (8.4-10.2); Carbon Dioxide 22 mmol/L (22-30); Chloride 107 mmol/L (98-107); Estimated CRCL calculation 95 ml/min; Estimated Glomerular Filt Rate > 60; Glucose 134 mg/dL (65-110); Magnesium 2.1 mg/dL (1.6-2.3); Potassium 3.9 mmol/L (3.4-5.0); Sodium 137 mmol/L (137-145); Total Protein 6.8 g/dL (6.3-8.2)
[2025-04-24] MEDS: SODIUM CHLORIDE 0.9% IV 1,000 ML 100 ML IV CONT (12:15)
[2025-04-24] MEDS: LACTATED RINGERS 1,000 ML 150 ML IV CONT (13:39)
--- NOTE | 2025-04-24 13:53 | P.PNAN_ITS ---
Anes - Initial Pre Proc Eval Procedure: Operation Date: 04/24/25 15:00 Proposed Procedures p Diagnostic Colonoscopy - Emmanuel Naik MD Date/Time: 04/24/25 13:53 Surgeon: Orlando Bowden MD Pre Op Diagnosis: Bloody Diarrhea/KEITH/AFIB with RVR Patient Data Age: 60 Gender: M Height: 1.85 m Weight: 150.8 kg Last Vital Signs Temp 36.6 C 04/24/25 13:30 Pulse 100 04/24/25 13:30 Resp 20 04/24/25 13:30 BP 138/74 04/24/25 13:30 Pulse Ox 99 04/24/25 13:30 O2 Del Method Room Air 04/24/25 13:30 Allergies Allergy/AdvReac Type Severity Reaction Status Date / Time No Known Allergies Allergy Verified 04/24/25 13:29 Home Medications ?Medication ?Instructions ?Recorded ?Confirmed ?Type atorvastatin 40 mg tablet 40 mg PO QPM 04/23/25 04/23/25 History lisinopril 10 1 tablet PO DAILY 04/23/25 04/23/25 History mg-hydrochlorothiazide 12.5 mg tablet rivaroxaban 10 mg tablet (Xarelto) 20 mg PO DAILY 04/23/25 04/23/25 History Laboratory Tests 04/23/25 04/23/25 04/23/25 13:23 13:24 15:05 WBC RBC Hgb Hct MCV MCH MCHC RDW Plt Count MPV Immature Gran % (Auto) Neut % (Auto) Lymph % (Auto) [place] % (Auto) Eos % (Auto) Baso % (Auto) Lymph # (Auto) [place] # (Auto) Eos # (Auto) Baso # (Auto) Abs Immat Gran (auto) Absolute Neuts (auto) Absolute Nucleated RBC Nucleated RBC % PT INR APTT Sodium Potassium Chloride Carbon Dioxide Anion Gap BUN Creatinine Estim Creat Clear Calc Estimated GFR Glucose Lactic Acid 1.0 mmol/L (0.7-2.0) Calcium Magnesium Total Bilirubin AST ALT Alkaline Phosphatase Troponin I < 0.012 ng/mL (0.000-0.034) Total Protein Albumin TSH (Reflex) C. difficile (PCR) Blood Type B Positive Antibody Screen Negative 04/23/25 04/23/25 04/24/25 16:18 22:08 00:58 WBC RBC Hgb 11.9 L g/dL (14.0-18.0) Hct 37.3 L % (42.0-52.0) MCV MCH MCHC RDW Plt Count MPV Immature Gran % (Auto) Neut % (Auto) Lymph % (Auto) [place] % (Auto) Eos % (Auto) Baso % (Auto) Lymph # (Auto) [place] # (Auto) Eos # (Auto) Baso # (Auto) Abs Immat Gran (auto) Absolute Neuts (auto) Absolute Nucleated RBC Nucleated RBC % PT INR APTT Sodium Potassium Chloride Carbon Dioxide Anion Gap BUN Creatinine Estim Creat Clear Calc Estimated GFR Glucose Lactic Acid Calcium Magnesium Total Bilirubin AST ALT Alkaline Phosphatase Troponin I < 0.012 ng/mL < 0.012 ng/mL (0.000-0.034) (0.000-0.034) Total Protein Albumin TSH (Reflex) C. difficile (PCR) Negative (NEGATIVE) Blood Type Antibody Screen 04/24/25 08:03 WBC 10.9 H K/mm3 (4.5-10.0) RBC 4.10 L M/mm3 (4.6-6.20) Hgb 12.2 L g/dL (14.0-18.0) Hct 37.9 L % (42.0-52.0) MCV 92.4 fl (80-100) MCH 29.8 pg (26-34) MCHC 32.2 g/dl (32-36) RDW 15.5 H % (11.5-14.5) Plt Count 343 k/mm3 (150-375) MPV 10.1 fl (7.4-10.4) Immature Gran % (Auto) 0.5 % (0-0.5) Neut % (Auto) 52.9 % (45.5-73.1) Lymph % (Auto) 24.3 % (18.3-44.2) [place] % (Auto) 10.2 H % (2.6-8.5) Eos % (Auto) 11.4 H % (0-4.4) Baso % (Auto) 0.7 % (0.2-1.2) Lymph # (Auto) 2.65 K/mm3 (0.9-3.2) [place] # (Auto) 1.1 H K/mm3 (0.1-0.6) Eos # (Auto) 1.2 H K/mm3 (0-0.3) Baso # (Auto) 0.1 K/mm3 (0.0-0.1) Abs Immat Gran (auto) 0.06 H K/mm3 (0.00-0.031) Absolute Neuts (auto) 5.8 K/mm3 (1.3-6.7) Absolute Nucleated RBC 0.000 K/mm3 (0.0-0.012) Nucleated RBC % 0.0 % (0.0-0.2) PT 14.8 H D Seconds (11.1-14.7) INR 1.2 APTT 28.3 Seconds (22.3-36.8) Sodium 137 mmol/L (137-145) Potassium 3.9 mmol/L (3.4-5.0) Chloride 107 mmol/L (98-107) Carbon Dioxide 22 mmol/L (22-30) Anion Gap 8 mmol/L (4-12) BUN 23 H D mg/dL (9-20) Creatinine 1.15 mg/dL (0.7-1.3) Estim Creat Clear Calc 95 ml/min Estimated GFR > 60 (59 - ) Glucose 134 H mg/dL (65-110) Lactic Acid Calcium 8.4 mg/dL (8.4-10.2) Magnesium 2.1 mg/dL (1.6-2.3) Total Bilirubin 1.1 mg/dL (0.2-1.3) AST 35 U/L (17-59) ALT 26 U/L (6-50) Alkaline Phosphatase 75 U/L (38-126) Troponin I Total Protein 6.8 g/dL (6.3-8.2) Albumin 3.5 g/dL (3.5-5.1) TSH (Reflex) 1.280 uIU/mL (0.465-4.68) C. difficile (PCR) Blood Type Antibody Screen Patient hx anesthesia problems: none Family hx anesthesia problems: none Results Review: All pre-operative results and documents have been reviewed as part of the pre- operative evaluation. [facility] Past Medical History Medical History Chronic anticoagulation Acute GI bleeding Obesity, morbid, BMI 40.0-49.9 Colonic cryptitis Hemorrhoid GERD (gastroesophageal reflux disease) Loose stools Hematochezia Suprapubic pain Left lower quadrant pain High cholesterol History of blood clots Carpal tunnel syndrome Asthma DVT (deep venous thrombosis) Surgical History Surgical History [place] teeth extracted History of carpal tunnel release Family History Family History Father Heart disease Mother Heart disease Sibling Cerebrovascular accident Social History Social History Smoking status: Never smoker Second hand tobacco smoke exposure: No Alcohol intake: current Drinks per week: 4 Substance use: current Substance use type: marijuana Other substance usage details: DAILY Do You Feel Safe in your Home?: Yes Lack of Transportation: No Lack of Food: Never True Current Housing: I Have Housing Concerned About Future Housing: No Difficulty Paying Gas/Electric Bills: No Difficulty Paying for Meds: No Currently Unemployed: No Education: High School Diploma/GED Difficulty w/ Childcare or Family Care: No Living arrangements: with family Occupation/Education: occupation Gender identity (if verbalized by the patient): Male Spiritual care concerns: No Anes - Eval Final PreProcedure Day of Procedure 04/24/25 13:53 Patient weight: morbidly obese Heart: regular rate and rhythm Lungs: decreased breath sounds Airway: Mallampati scale class II Neurological: alert and oriented Last oral intake: >/= 8 hours ASA classification: III Emergent: no Anesthetic plan: proceed Anesthesia type and monitoring: general GIVS and standard monitoring Results Review: All pre-operative results and documents have been reviewed as part of the pre- operative evaluation. Informed Consent: The patient's anesthetic plan and its attendant risks and benefits were discussed with the patient/family/POA. Questions were solicited and answers provided to the satisfaction of the patient/family/POA.
--- NOTE | 2025-04-24 15:04 | S_PTH ---
PATIENT: Catalina Springer LOC: [id number] U#:[id number] AGE/SX: 60/M ROOM: 342 RE04/25/[address]: Cory Vincent APRN : 1965 BED: 01 DIS: 04/27/2025 SPEC #: [id number] RECD: 04/27/25 06:55 STATUS: LYLA REQ #: [id number] RADHA: 04/24/25 15:[address]: Emmanuel Naik DEPT: [facility] Surgical RECD BY: Ml Conley ENTERED: 04/27/25 06:55 SP TYPE: Surgical OTHR DR: PAUL Pulido, MD Mone Parekh, INFORMATICS PHARMACIST-C Tissues: A - Colon Biopsy B - Colon Biopsy C - Rectal Biopsy Procedures: Hematoxylin and Eosin Stain Gross and Microscopic Level 4
--- NOTE | 2025-04-24 15:51 | P.PNGI_ITS ---
Progress Note: A&P Assessment and Plan (1) Ulcerative colitis: Code(s): K51.90 - Ulcerative colitis, unspecified, without complications Status: Acute Assessment and Plan: The colonoscopy revealed clear evidence of left-sided ulcerative colitis, with minor involvement on the right. This active inflammation may account for the patient's deep venous thrombosis. Management has initiated with Prednisone 40mg daily and mesalamine 4.8g daily. Due to ongoing chronic bleeding from colitis, anticoagulation for atrial fibrillation is temporarily held. The primary goal is to achieve optimal control of his underlying colitis, after which anticoagulation can be safely reinitiated. Anticipating the possibility of needing advanced therapy, pre- biologic workup including CRP, stool calprotectin, HBsAg, TPMT activity, and QuantiFERON has been ordered in anticipation of potential biologic therapy if mesalamine is insufficient. A follow-up consultation with GI service should be scheduled in one month to assess treatment efficacy, begin tapering prednisone, and evaluate the potential addition of mercaptopurine. Subjective Date/time seen: 04/24/25 15:51 Objective Data Vital Signs Vital Signs: Vital Signs - 24 hr 04/23/25 16:08 04/23/25 16:09 04/23/25 16:15 Temperature Pulse Rate 121 H 119 H 122 H Respiratory Rate 23 H 21 H 21 H Blood Pressure 132/77 Pulse Oximetry 97 98 98 Oxygen Delivery 04/23/25 16:16 04/23/25 16:30 04/23/25 16:31 Temperature Pulse Rate 118 H 112 H 109 H Respiratory Rate 20 21 H 20 Blood Pressure 144/104 H 129/87 Pulse Oximetry 98 99 99 Oxygen Delivery 04/23/25 16:45 04/23/25 16:46 04/23/25 17:00 Temperature Pulse Rate 113 H 107 H 107 H Respiratory Rate 20 19 21 H Blood Pressure 155/111 H Pulse Oximetry 100 99 99 Oxygen Delivery 04/23/25 17:01 04/23/25 17:15 04/23/25 17:16 Temperature Pulse Rate 104 H 110 H 103 H Respiratory Rate 22 H 18 18 Blood Pressure 153/109 H 163/110 H Pulse Oximetry 100 Oxygen Delivery 04/23/25 17:30 04/23/25 17:31 04/23/25 17:39 Temperature Pulse Rate 105 H 113 H 111 H Respiratory Rate 27 H 28 H 20 Blood Pressure 150/81 H 150/81 H Pulse Oximetry 98 100 100 Oxygen Delivery 04/23/25 17:45 04/23/25 17:46 04/23/25 19:10 Temperature Pulse Rate 103 H 105 H 101 H Respiratory Rate 22 H 15 24 H Blood Pressure 129/92 H 121/66 Pulse Oximetry 100 100 100 Oxygen Delivery 04/23/25 19:15 04/23/25 19:16 04/23/25 19:31 Temperature 98.4 F Pulse Rate 98 100 108 H Respiratory Rate 18 26 H 17 Blood Pressure 113/79 114/86 Pulse Oximetry 99 99 99 Oxygen Delivery 04/23/25 19:45 04/23/25 19:46 04/23/25 20:48 Temperature 98.4 F Pulse Rate 94 89 98 Respiratory Rate 15 22 H 20 Blood Pressure 113/87 143/93 H Pulse Oximetry 99 99 100 Oxygen Delivery 04/24/25 00:00 04/24/25 00:13 04/24/25 00:39 Temperature Pulse Rate 140 H 112 H Respiratory Rate 16 Blood Pressure 119/55 L Pulse Oximetry Oxygen Delivery Room Air 04/24/25 04:00 04/24/25 04:23 04/24/25 08:04 Temperature 98.8 F Pulse Rate 110 H 112 H 106 H Respiratory Rate 20 Blood Pressure 102/68 Pulse Oximetry 95 Oxygen Delivery 04/24/25 09:02 04/24/25 09:35 04/24/25 12:05 Temperature Pulse Rate 130 H Respiratory Rate Blood Pressure Pulse Oximetry 97 Oxygen Delivery Room Air Room Air 04/24/25 12:13 04/24/25 13:30 04/24/25 15:04 Temperature 97.4 F L 97.8 F Pulse Rate 116 H 100 100 Respiratory Rate 20 20 22 H Blood Pressure 148/97 H 138/74 80/54 L Pulse Oximetry 100 99 95 Oxygen Delivery Room Air Room Air 04/24/25 15:14 04/24/25 15:24 Temperature Pulse Rate 105 H 100 Respiratory Rate 15 20 Blood Pressure 94/72 L 108/72 Pulse Oximetry 95 100 Oxygen Delivery Room Air Room Air Intake/Output Intake/Output: Intake & Output 04/21/25 04/22/25 04/23/25 04/24/25 23:59 23:59 23:59 23:59 Intake Total 0545 655 Balance 2646 655 Meds/Results Medications: Active Medications Generic Name Dose Route Start Last Admin Trade Name Freq PRN Reason Stop Dose Admin Acetaminophen 650 mg 04/23/25 17:41 Acetaminophen 325 Mg Tablet PO Q4H PRN Mild Pain (1-3) or Fever Atorvastatin Calcium 40 mg 04/24/25 18:00 Atorvastatin 40 Mg Tablet PO QPM [facility] Diltiazem HCl 30 mg 04/24/25 01:45 04/24/25 14:40 Diltiazem Hcl 30 Mg Tablet PO Not Given Q6HR [facility] Hydrochlorothiazide 12.5 mg 04/25/25 09:00 Hydrochlorothiazide 12.5 Mg Capsule PO QAM [facility] Sodium Chloride 1,000 mls @ 100 mls/hr 04/23/25 17:45 04/24/25 12:15 Normal Saline Iv IV CONT 100 mls/hr .Q10H [facility] Administration Lisinopril 10 mg 04/25/25 09:00 Lisinopril 10 Mg Tablet PO QAM [facility] Mesalamine 1,600 mg 04/24/25 17:00 Mesalamine 400 Mg Delayed Release Capsule PO TID [facility] Perflutren Lipid Microsphere 0 ml 04/23/25 20:19 Perflutren Lipid Microspheres 1.5 Ml Vial Diluted To 10 Ml Total Volume IV PUSH 04/26/25 20:19 ONCE PRN adequate visualization Protocol Prednisone 40 mg 04/25/25 08:00 Prednisone 20 Mg Tablet PO DAILY@0800 [facility] Rivaroxaban 20 mg 04/25/25 09:00 Rivaroxaban 10 Mg Tablet PO 05/29/25 09:01 DAILY [facility] Radiology Results: ITS Impressions Abdomen/Pelvis CT 04/23/25 16:13 IMPRESSION: Increased attenuation within the cecum and rectum with surrounding inflammatory change for which acute hemorrhage is suspected. Labs Labs: Laboratory Results - last 24 hr 04/23/25 04/23/25 04/23/25 13:23 16:18 22:08 WBC RBC Hgb Hct MCV MCH MCHC RDW Plt Count MPV Immature Gran % (Auto) Neut % (Auto) Lymph % (Auto) [place] % (Auto) Eos % (Auto) Baso % (Auto) Lymph # (Auto) [place] # (Auto) Eos # (Auto) Baso # (Auto) Abs Immat Gran (auto) Absolute Neuts (auto) Absolute Nucleated RBC Nucleated RBC % PT INR APTT Sodium Potassium Chloride Carbon Dioxide Anion Gap BUN Creatinine Estim Creat Clear Calc Estimated GFR Glucose Calcium Magnesium Total Bilirubin AST ALT Alkaline Phosphatase Troponin I < 0.012 < 0.012 Total Protein Albumin TSH (Reflex) C. difficile (PCR) Negative 04/24/25 04/24/25 00:58 08:03 WBC 10.9 H RBC 4.10 L Hgb 11.9 L 12.2 L Hct 37.3 L 37.9 L MCV 92.4 MCH 29.8 MCHC 32.2 RDW 15.5 H Plt Count 343 MPV 10.1 Immature Gran % (Auto) 0.5 Neut % (Auto) 52.9 Lymph % (Auto) 24.3 [place] % (Auto) 10.2 H Eos % (Auto) 11.4 H Baso % (Auto) 0.7 Lymph # (Auto) 2.65 [place] # (Auto) 1.1 H Eos # (Auto) 1.2 H Baso # (Auto) 0.1 Abs Immat Gran (auto) 0.06 H Absolute Neuts (auto) 5.8 Absolute Nucleated RBC 0.000 Nucleated RBC % 0.0 PT 14.8 H D INR 1.2 APTT 28.3 Sodium 137 Potassium 3.9 Chloride 107 Carbon Dioxide 22 Anion Gap 8 BUN 23 H D Creatinine 1.15 Estim Creat Clear Calc 95 Estimated GFR > 60 Glucose 134 H Calcium 8.4 Magnesium 2.1 Total Bilirubin 1.1 AST 35 ALT 26 Alkaline Phosphatase 75 Troponin I < 0.012 Total Protein 6.8 Albumin 3.5 TSH (Reflex) 1.280 C. difficile (PCR)
[2025-04-24] MEDS: ATORVASTATIN 40 MG TABLET PO (17:03)
[2025-04-24] MEDS: MESALAMINE 400 MG DELAYED RELEASE CAPSULE 1600 MG PO (17:04)
[2025-04-24 19:32] LABS: CRP. 2.2 mg/dL (<1.0)
[2025-04-24 20:03] LABS: Hepatitis B Surface Antigen Negative (Negative)
[2025-04-25] VITALS (10 sets, daily range): BP systolic 112–137; BP diastolic 74–81; PULSE 92–118; RESP 18–20; TEMP 36.6–37.2; O2SAT 96–99
[2025-04-25 06:01] LABS: Basophils Absolute Auto 0.1 K/mm3 (0.0-0.1); Eosinophils Percent Auto 9.2 % (0-4.4); Hematocrit 37.6 % (42.0-52.0); Hemoglobin 11.9 g/dL (14.0-18.0); Immature Granulocyte Absolute 0.04 K/mm3 (0.00-0.031); Immature Granulocyte Percent A 0.4 % (0-0.5); Lymphocytes Absolute Auto 2.49 K/mm3 (0.9-3.2); Lymphocytes Percent Auto 22.3 % (18.3-44.2); Mean Corpuscular HGB Conc 31.6 g/dl (32-36); Mean Corpuscular Hemoglobin 29.3 pg (26-34); Mean Corpuscular Volume 92.6 fl (80-100); Mean Platelet Volume 10.1 fl (7.4-10.4); Monocytes Absolute Auto 1.1 K/mm3 (0.1-0.6); Monocytes Percent Auto 9.7 % (2.6-8.5); Neutrophils Absolute Auto 6.4 K/mm3 (1.3-6.7); Neutrophils Percent Auto 57.4 % (45.5-73.1); Platelet Count Result 342 k/mm3 (150-375); Red Blood Count 4.06 M/mm3 (4.6-6.20); Red Cell Distribution Width 15.8 % (11.5-14.5); White Blood Count 11.2 K/mm3 (4.5-10.0)
[2025-04-25 06:14] LABS: Alanine Aminotransferase 22 U/L (6-50); Albumin Level 3.4 g/dL (3.5-5.1); Alkaline Phosphatase 80 U/L (38-126); Anion Gap 6 mmol/L (4-12); Aspartate Amino Transferase 31 U/L (17-59); Bilirubin,Total 0.8 mg/dL (0.2-1.3); Blood Urea Nitrogen 17 mg/dL (9-20); Calcium 8.5 mg/dL (8.4-10.2); Carbon Dioxide 23 mmol/L (22-30); Chloride 107 mmol/L (98-107); Estimated CRCL calculation 103 ml/min; Estimated Glomerular Filt Rate > 60; Glucose 103 mg/dL (65-110); Magnesium 2.2 mg/dL (1.6-2.3); Potassium 3.8 mmol/L (3.4-5.0); Sodium 136 mmol/L (137-145); Total Protein 6.6 g/dL (6.3-8.2)
[2025-04-25] MEDS: dilTIAZem HCL 30 MG TABLET PO (06:17)
--- NOTE | 2025-04-25 09:04 | P.DS_ITS ---
DS: Summary Time Spent with Patient Time attestation: Total time spent providing and/or coordinating discharge services: DS: Data Data Completed and Pending Pending studies at discharge: Pending at discharge 04/24/25 15:04 Surgical [PTH] Routine Labs on day of discharge: Labs from last 24 hours 04/25/25 04/24/25 04/24/25 05:19 19:11 18:46 WBC 11.2 H RBC 4.06 L Hgb 11.9 L Hct 37.6 L MCV 92.6 MCH 29.3 MCHC 31.6 L RDW 15.8 H Plt Count 342 MPV 10.1 Immature Gran % (Auto) 0.4 Neut % (Auto) 57.4 Lymph % (Auto) 22.3 [place] % (Auto) 9.7 H Eos % (Auto) 9.2 H Baso % (Auto) 1.0 Lymph # (Auto) 2.49 [place] # (Auto) 1.1 H Eos # (Auto) 1.0 H Baso # (Auto) 0.1 Abs Immat Gran (auto) 0.04 H Absolute Neuts (auto) 6.4 Absolute Nucleated RBC 0.000 Nucleated RBC % 0.0 PT INR APTT Sodium 136 L Potassium 3.8 Chloride 107 Carbon Dioxide 23 Anion Gap 6 BUN 17 Creatinine 1.06 Estim Creat Clear Calc 103 Estimated GFR > 60 Glucose 103 Calcium 8.5 Magnesium 2.2 Total Bilirubin 0.8 AST 31 ALT 22 Alkaline Phosphatase 80 C-Reactive Protein 2.2 H Total Protein 6.6 Albumin 3.4 L TPMT Activity, Quant Pending TSH (Reflex) Stool Calprotectin Pending Hep Bs Antigen Negative TB Test (QFT) Gold Plus Pending TB Test (QFT) Nil Pending TB Test Mitogen - Nil Pending TB Test Ag - Nil 1 Pending TB Test Ag - Nil 2 Pending 04/24/25 08:03 WBC RBC Hgb Hct MCV MCH MCHC RDW Plt Count MPV Immature Gran % (Auto) Neut % (Auto) Lymph % (Auto) [place] % (Auto) Eos % (Auto) Baso % (Auto) Lymph # (Auto) [place] # (Auto) Eos # (Auto) Baso # (Auto) Abs Immat Gran (auto) Absolute Neuts (auto) Absolute Nucleated RBC Nucleated RBC % PT 14.8 H D INR 1.2 APTT 28.3 Sodium Potassium Chloride Carbon Dioxide Anion Gap BUN Creatinine Estim Creat Clear Calc Estimated GFR Glucose Calcium Magnesium Total Bilirubin AST ALT Alkaline Phosphatase C-Reactive Protein Total Protein Albumin TPMT Activity, Quant TSH (Reflex) 1.280 Stool Calprotectin Hep Bs Antigen TB Test (QFT) Gold Plus TB Test (QFT) Nil TB Test Mitogen - Nil TB Test Ag - Nil 1 TB Test Ag - Nil 2 Discharge Plan Discharge Consulting providers: Bola Razo; Emmanuel Naik; Mone Bright Patient Instructions: Rivaroxaban (By mouth) Patient Language: Amharic Discharge Medications: No Action atorvastatin 40 mg tablet 40 mg PO QPM lisinopril-hydrochlorothiazide 10-12.5 mg tablet 1 tablet PO DAILY Xarelto 10 mg tablet 20 mg PO DAILY Rx Instructions: for 35 days Date of admission: 04/23/25 17:42 Primary Care Provider: KendallJackie Admitting Provider: Orlando Bowden Attending physician on admission: Orlando Bowden Condition: Stable
--- NOTE | 2025-04-25 09:07 | P.PNGI_ITS ---
Progress Note: A&P Assessment and Plan (1) Ulcerative colitis: Code(s): K51.90 - Ulcerative colitis, unspecified, without complications Status: Acute Assessment and Plan: The patient has newly diagnosed ulcerative colitis. This morning when I went to visit him he was having an episode of fecal incontinence and abdominal discomfort. He just started to receive prednisone 40 mg q.d., and mesalamine is indicated as well. Will keep the patient over the weekend until his symptoms get more stabilized before discharging him home. Laboratory workup in anticipation to possible biologic therapy has been sent. Subjective Date/time seen: 04/25/25 09:07 Objective Data Vital Signs Vital Signs: Vital Signs - 24 hr 04/24/25 09:35 04/24/25 12:05 04/24/25 12:13 Temperature 97.4 F L Pulse Rate 130 H 116 H Respiratory Rate 20 Blood Pressure 148/97 H Pulse Oximetry 97 100 Oxygen Delivery Room Air Fraction of Inspired Oxygen 04/24/25 13:30 04/24/25 15:04 04/24/25 15:14 Temperature 97.8 F Pulse Rate 100 100 105 H Respiratory Rate 20 22 H 15 Blood Pressure 138/74 80/54 L 94/72 L Pulse Oximetry 99 95 95 Oxygen Delivery Room Air Room Air Room Air Fraction of Inspired Oxygen 04/24/25 15:24 04/24/25 16:04 04/24/25 18:45 Temperature 97.7 F Pulse Rate 100 117 H 113 H Respiratory Rate 20 18 Blood Pressure 108/72 127/70 Pulse Oximetry 100 99 Oxygen Delivery Room Air Fraction of Inspired Oxygen 04/24/25 20:00 04/24/25 20:00 04/24/25 20:25 Temperature 98.4 F Pulse Rate 110 H 107 H Respiratory Rate 20 Blood Pressure 125/89 Pulse Oximetry 98 Oxygen Delivery Room Air Fraction of Inspired Oxygen 04/24/25 23:06 04/25/25 01:41 04/25/25 04:00 Temperature Pulse Rate 80 118 H 92 Respiratory Rate Blood Pressure Pulse Oximetry 93 Oxygen Delivery Room Air Fraction of Inspired Oxygen 21 04/25/25 06:00 Temperature 98.9 F Pulse Rate 104 H Respiratory Rate 20 Blood Pressure 137/81 Pulse Oximetry 98 Oxygen Delivery Fraction of Inspired Oxygen Intake/Output Intake/Output: Intake & Output 04/22/25 04/23/25 04/24/25 04/25/25 23:59 23:59 23:59 23:59 Intake Total 2645 1295 400 Balance 2645 1295 400 Meds/Results Medications: Active Medications Generic Name Dose Route Start Last Admin Trade Name Freq PRN Reason Stop Dose Admin Acetaminophen 650 mg 04/23/25 17:41 Acetaminophen 325 Mg Tablet PO Q4H PRN Mild Pain (1-3) or Fever Atorvastatin Calcium 40 mg 04/24/25 18:00 04/24/25 17:03 Atorvastatin 40 Mg Tablet PO 40 mg QPM MERLY Administration Diltiazem HCl 30 mg 04/24/25 01:45 04/25/25 06:17 Diltiazem Hcl 30 Mg Tablet PO 30 mg Q6HR MERLY Administration Hydrochlorothiazide 12.5 mg 04/25/25 09:00 Hydrochlorothiazide 12.5 Mg Capsule PO QAM [facility] Sodium Chloride 1,000 mls @ 100 mls/hr 04/23/25 17:45 04/24/25 12:15 Normal Saline Iv IV CONT 100 mls/hr .Q10H MERLY Administration Lisinopril 10 mg 04/25/25 09:00 Lisinopril 10 Mg Tablet PO QAM [facility] Mesalamine 1,600 mg 04/24/25 17:00 04/24/25 17:04 Mesalamine 400 Mg Delayed Release Capsule PO 1,600 mg TID MERLY Administration Perflutren Lipid Microsphere 0 ml 04/23/25 20:19 Perflutren Lipid Microspheres 1.5 Ml Vial Diluted To 10 Ml Total Volume IV PUSH 04/26/25 20:19 ONCE PRN adequate visualization Protocol Prednisone 40 mg 04/25/25 08:00 Prednisone 20 Mg Tablet PO DAILY@0800 [facility] Rivaroxaban 20 mg 04/25/25 09:00 Rivaroxaban 10 Mg Tablet PO 05/29/25 09:01 DAILY [facility] Radiology Results: ITS Impressions Abdomen/Pelvis CT 04/23/25 16:13 IMPRESSION: Increased attenuation within the cecum and rectum with surrounding inflammatory change for which acute hemorrhage is suspected. Labs Labs: Laboratory Results - last 24 hr 04/24/25 04/24/25 04/25/25 08:03 19:11 05:19 WBC 11.2 H RBC 4.06 L Hgb 11.9 L Hct 37.6 L MCV 92.6 MCH 29.3 MCHC 31.6 L RDW 15.8 H Plt Count 342 MPV 10.1 Immature Gran % (Auto) 0.4 Neut % (Auto) 57.4 Lymph % (Auto) 22.3 [place] % (Auto) 9.7 H Eos % (Auto) 9.2 H Baso % (Auto) 1.0 Lymph # (Auto) 2.49 [place] # (Auto) 1.1 H Eos # (Auto) 1.0 H Baso # (Auto) 0.1 Abs Immat Gran (auto) 0.04 H Absolute Neuts (auto) 6.4 Absolute Nucleated RBC 0.000 Nucleated RBC % 0.0 PT 14.8 H D INR 1.2 APTT 28.3 Sodium 136 L Potassium 3.8 Chloride 107 Carbon Dioxide 23 Anion Gap 6 BUN 17 Creatinine 1.06 Estim Creat Clear Calc 103 Estimated GFR > 60 Glucose 103 Calcium 8.5 Magnesium 2.2 Total Bilirubin 0.8 AST 31 ALT 22 Alkaline Phosphatase 80 C-Reactive Protein 2.2 H Total Protein 6.6 Albumin 3.4 L TSH (Reflex) 1.280 Hep Bs Antigen Negative
[2025-04-25] MEDS: lisinopriL 10 MG TABLET PO (09:53)
[2025-04-25] MEDS: predniSONE 20 MG TABLET 40 MG PO (09:53)
[2025-04-25] MEDS: hydroCHLOROthiazide 12.5 MG CAPSULE PO (09:53)
[2025-04-25] MEDS: MESALAMINE 400 MG DELAYED RELEASE CAPSULE 1600 MG PO ×3 (09:53→17:55)
--- NOTE | 2025-04-25 11:40 | P.PNIM_ITS ---
Progress Note: A&P Assessment and Plan (1) Atrial fibrillation with rapid ventricular response: Code(s): I48.91 - Unspecified atrial fibrillation Status: Acute Assessment and Plan: * New onset * ECHO ordered * No Cardizem drip, remains in Fib, but currently rate controlled after a push of Cardizem. * Telemetry * Pt on Xarelto chronically, but is concerned for acute GI Bleed at this time. Will hold Xarelto until GI can see and evaluate tomorrow. * Trend labs and VS. * Check thyroid labs * Cardiac consult pending, appreciate recommendations * Currently on PO Diltiazem 30mg PO q6hr 04/25 * Currently on PO Diltiazem 30mg PO q6hr and control is suboptimal. Increase to 60mg q6h. * Unable to resume anticoag at this time. Prefer to resume as soon as reasonable, higher risk patient. (2) Acute GI bleeding: Code(s): K92.2 - Gastrointestinal hemorrhage, unspecified Status: Acute Assessment and Plan: * Stable H&H. * Will hold Xarelto for tonight, however since patient does have new onset AFib would recommend restarting tomorrow if no plan for GI lab. * Labs reviewed from ER and C diff is negative. * CT abdomen pelvis independently reviewed by this provider that shows an increased attenuation within the cecum in the rectum with surrounding inflammatory change for which acute hemorrhage suspected. * NPO after midnight * Trended monitor labs and vital signs. * Flagyl and Levaquin initiated. * Stool culture obtained given diarrhea * GI consult * Colonoscopy planned for today 04/25 * Stable hgb, still having blood in stools. GI consulting, appreciate recs. 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 Outpatient hematology consultation would likely be of benefit. Could consider an IVC filter if does not have the ability to resume anticoagulation in near future. (4) Obesity, morbid, BMI 40.0-49.9: Code(s): E66.01 - Morbid (severe) obesity due to excess calories Status: Chronic Assessment and Plan: * Recommend lifestyle changes at discharge (5) History of deep vein thrombosis: Code(s): Z86.718 - Personal history of other venous thrombosis and embolism Status: Inactive Assessment and Plan: * Old history 04/25 * See above. Plan Catalina Springer is a 60 year old male with several weeks of hematochezia with findings of UC on workup from GI this admission. Additionally found to have atrial fib with currently suboptimal rate control. Plan to continue treatment for both of the above and expect 24-48 further hours of care. Time Spent With Patient Time with patient: 25 - 35 minutes Subjective Date/time seen: 04/25/25 11:40 Interval history: Catalina had a significant episode of incontinence unable to make it to the bathroom. He reports significant blood present. Review of Systems Review of Systems: Does note has been taking ivermectin at home for suspected parasitic infection. All systems reviewed & are unremarkable except as noted in HPI and below Exam Narrative: GENERAL APPEARANCE: Appears to be in no acute distress. HEAD: normocephalic atraumatic EYES: EOMI. Vision grossly intact. ENT: Hearing grossly intact, no nasal discharge NECK: Neck supple, trachea midline. CARDIAC: Normal S1/S2. Rhythm is regular. No murmurs, rubs, or gallops. No cyanosis or pallor. Extremities are warm and well perfused. LUNGS: Clear to auscultation without rales, rhonchi, wheezing or diminished breath sounds. Respirations even and unlabored. ABDOMEN: BS positive x 4 quadrants. Soft, nondistended, nontender. No guarding or rebound. MSK: No joint tenderness/swelling, fair strength in all extremities. PERIPHERAL VASCULAR: No edema. NEURO: Follows commands. No focal deficits. SKIN: [place] without lesions or eruptions. PSYCH: Stable, no paranoia or delusional thinking. Objective Data Vital Signs Vital Signs: Vital Signs - 24 hr 04/24/25 12:05 04/24/25 12:13 04/24/25 13:30 Temperature 97.4 F L 97.8 F Pulse Rate 130 H 116 H 100 Respiratory Rate 20 20 Blood Pressure 148/97 H 138/74 Pulse Oximetry 100 99 Oxygen Delivery Room Air Fraction of Inspired Oxygen 04/24/25 15:04 04/24/25 15:14 04/24/25 15:24 Temperature Pulse Rate 100 105 H 100 Respiratory Rate 22 H 15 20 Blood Pressure 80/54 L 94/72 L 108/72 Pulse Oximetry 95 95 100 Oxygen Delivery Room Air Room Air Room Air Fraction of Inspired Oxygen 04/24/25 16:04 04/24/25 18:45 04/24/25 20:00 Temperature 97.7 F Pulse Rate 117 H 113 H Respiratory Rate 18 Blood Pressure 127/70 Pulse Oximetry 99 Oxygen Delivery Room Air Fraction of Inspired Oxygen 04/24/25 20:00 04/24/25 20:25 04/24/25 23:06 Temperature 98.4 F Pulse Rate 110 H 107 H 80 Respiratory Rate 20 Blood Pressure 125/89 Pulse Oximetry 98 93 Oxygen Delivery Room Air Fraction of Inspired Oxygen 21 04/25/25 01:41 04/25/25 04:00 04/25/25 06:00 Temperature 98.9 F Pulse Rate 118 H 92 104 H Respiratory Rate 20 Blood Pressure 137/81 Pulse Oximetry 98 Oxygen Delivery Fraction of Inspired Oxygen 04/25/25 08:00 Temperature 97.8 F Pulse Rate 117 H Respiratory Rate 18 Blood Pressure 118/74 Pulse Oximetry 96 Oxygen Delivery Fraction of Inspired Oxygen Intake/Output Intake/Output: Intake & Output 04/22/25 04/23/25 04/24/25 04/25/25 23:59 23:59 23:59 23:59 Intake Total 2645 2295 880 Balance 2645 2295 880 Meds/Results Medications: Active Medications Generic Name Dose Route Start Last Admin Trade Name Freq PRN Reason Stop Dose Admin Acetaminophen 650 mg 04/23/25 17:41 Acetaminophen 325 Mg Tablet PO Q4H PRN Mild Pain (1-3) or Fever Atorvastatin Calcium 40 mg 04/24/25 18:00 04/24/25 17:03 Atorvastatin 40 Mg Tablet PO 40 mg QPM MERLY Administration Diltiazem HCl 30 mg 04/24/25 01:45 04/25/25 06:17 Diltiazem Hcl 30 Mg Tablet PO 30 mg Q6HR MERLY Administration Hydrochlorothiazide 12.5 mg 04/25/25 09:00 04/25/25 09:53 Hydrochlorothiazide 12.5 Mg Capsule PO 12.5 mg QAM MERLY Administration Lisinopril 10 mg 04/25/25 09:00 04/25/25 09:53 Lisinopril 10 Mg Tablet PO 10 mg QAM MERLY Administration Mesalamine 1,600 mg 04/24/25 17:00 04/25/25 09:53 Mesalamine 400 Mg Delayed Release Capsule PO 1,600 mg TID [facility] Administration Perflutren Lipid Microsphere 0 ml 04/23/25 20:19 Perflutren Lipid Microspheres 1.5 Ml Vial Diluted To 10 Ml Total Volume IV PUSH 04/26/25 20:19 ONCE PRN adequate visualization Protocol Prednisone 40 mg 04/25/25 08:00 04/25/25 09:53 Prednisone 20 Mg Tablet PO 40 mg DAILY@0800 [facility] Administration Rivaroxaban 20 mg 04/25/25 09:00 04/25/25 09:56 Rivaroxaban 10 Mg Tablet PO 05/29/25 09:01 Not Given DAILY [facility] Radiology Results: ITS Impressions Abdomen/Pelvis CT 04/23/25 16:13 IMPRESSION: Increased attenuation within the cecum and rectum with surrounding inflammatory change for which acute hemorrhage is suspected. Labs Labs: Laboratory Results - last 24 hr 04/24/25 04/25/25 19:11 05:19 WBC 11.2 H RBC 4.06 L Hgb 11.9 L Hct 37.6 L MCV 92.6 MCH 29.3 MCHC 31.6 L RDW 15.8 H Plt Count 342 MPV 10.1 Immature Gran % (Auto) 0.4 Neut % (Auto) 57.4 Lymph % (Auto) 22.3 [place] % (Auto) 9.7 H Eos % (Auto) 9.2 H Baso % (Auto) 1.0 Lymph # (Auto) 2.49 [place] # (Auto) 1.1 H Eos # (Auto) 1.0 H Baso # (Auto) 0.1 Abs Immat Gran (auto) 0.04 H Absolute Neuts (auto) 6.4 Absolute Nucleated RBC 0.000 Nucleated RBC % 0.0 Sodium 136 L Potassium 3.8 Chloride 107 Carbon Dioxide 23 Anion Gap 6 BUN 17 Creatinine 1.06 Estim Creat Clear Calc 103 Estimated GFR > 60 Glucose 103 Calcium 8.5 Magnesium 2.2 Total Bilirubin 0.8 AST 31 ALT 22 Alkaline Phosphatase 80 C-Reactive Protein 2.2 H Total Protein 6.6 Albumin 3.4 L TPMT Activity, Quant Cancelled Hep Bs Antigen Negative Quality If No VTE Prophylaxis Answer both mechanical and pharmacologic: Reason no pharmacologic proph: medical contraindication Hospitalist MIPS Advance Care Plan I have confirmed that the patient's Advanced Care Plan is present, code status is documented, or surrogate decision maker is listed in patient medical record.: Yes Medication Reconciliation I have utilized all available resources to obtain, update and review the patients current medications (includes all prescriptions, OTC, herbals, cannabis, and nutritional supplements).: Yes
[2025-04-25] MEDS: dilTIAZem HCL 60 MG TABLET PO ×2 (13:04→17:55)
[2025-04-25] MEDS: ATORVASTATIN 40 MG TABLET PO (17:55)
--- NOTE | 2025-04-25 19:44 | PM.PNCARD ---
Progress Note: A&P Assessment and Plan (1) Atrial fibrillation with rapid ventricular response: Code(s): I48.91 - Unspecified atrial fibrillation Status: Acute Plan 60-year-old man with chronic DVTs bilaterally and now recently diagnosed ulcerative colitis along with new onset atrial fibrillation New onset atrial fibrillation -diltiazem 360 mg p.o. 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 Review of Systems Cardiovascular: Cardiovascular: Reports as per HPI Respiratory: Respiratory: Reports as per HPI Exam Const: General: comfortable HENMT: Mouth: Yes moist mucous membranes Eyes: EOM: EOMs intact bilaterally Neck: Neck: no JVD Resp: Effort & Inspection: normal respiratory effort Auscultation: clear to auscultation bilaterally Cardio: Rate: tachycardic Rhythm: abnormal rhythm Extrem: General: no pedal edema Objective Data Vital Signs Vital Signs: Vital Signs - 24 hr 04/24/25 20:00 04/24/25 20:00 04/24/25 20:25 Temperature 36.9 C Pulse Rate 110 H 107 H Respiratory Rate 20 Blood Pressure 125/89 Pulse Oximetry 98 Oxygen Delivery Room Air Fraction of Inspired Oxygen 04/24/25 23:06 04/25/25 01:41 04/25/25 04:00 Temperature Pulse Rate 80 118 H 92 Respiratory Rate Blood Pressure Pulse Oximetry 93 Oxygen Delivery Room Air Fraction of Inspired Oxygen 21 04/25/25 06:00 04/25/25 08:00 04/25/25 08:04 Temperature 37.2 C 36.6 C Pulse Rate 104 H 117 H 98 Respiratory Rate 20 18 Blood Pressure 137/81 118/74 Pulse Oximetry 98 96 Oxygen Delivery Fraction of Inspired Oxygen 04/25/25 09:45 04/25/25 12:05 04/25/25 16:00 Temperature 36.8 C Pulse Rate 104 H 101 H Respiratory Rate 18 Blood Pressure 112/75 Pulse Oximetry 99 Oxygen Delivery Room Air Fraction of Inspired Oxygen 04/25/25 16:04 Temperature Pulse Rate 101 H Respiratory Rate Blood Pressure Pulse Oximetry Oxygen Delivery Fraction of Inspired Oxygen Intake/Output Intake/Output: Intake & Output 04/22/25 04/23/25 04/24/25 04/25/25 23:59 23:59 23:59 23:59 Intake Total 2645 2295 0 Balance 2645 2295 2059 Meds/Results Medications: Active Medications Generic Name Dose Route Start Last Admin Trade Name Freq PRN Reason Stop Dose Admin Acetaminophen 650 mg 04/23/25 17:41 Acetaminophen 325 Mg Tablet PO Q4H PRN Mild Pain (1-3) or Fever Atorvastatin Calcium 40 mg 04/24/25 18:00 04/25/25 17:55 Atorvastatin 40 Mg Tablet PO 40 mg QPM MERLY Administration Diltiazem HCl 360 mg 04/26/25 09:00 Diltiazem Hcl Cd 180 Mg Cap.24hr PO QAM MERLY Hydrochlorothiazide 12.5 mg 04/25/25 09:00 04/25/25 09:53 Hydrochlorothiazide 12.5 Mg Capsule PO 12.5 mg QAM [facility] Administration Lisinopril 10 mg 04/25/25 09:00 04/25/25 09:53 Lisinopril 10 Mg Tablet PO 10 mg QAM [facility] Administration Mesalamine 1,600 mg 04/24/25 17:00 04/25/25 17:55 Mesalamine 400 Mg Delayed Release Capsule PO 1,600 mg TID MERLY Administration Perflutren Lipid Microsphere 0 ml 04/23/25 20:19 Perflutren Lipid Microspheres 1.5 Ml Vial Diluted To 10 Ml Total Volume IV PUSH 04/26/25 20:19 ONCE PRN adequate visualization Protocol Prednisone 40 mg 04/25/25 08:00 04/25/25 09:53 Prednisone 20 Mg Tablet PO 40 mg DAILY@0800 [facility] Administration Rivaroxaban 20 mg 04/25/25 09:00 04/25/25 09:56 Rivaroxaban 10 Mg Tablet PO 05/29/25 09:01 Not Given DAILY [facility] Radiology Results: ITS Impressions Abdomen/Pelvis CT 04/23/25 16:13 IMPRESSION: Increased attenuation within the cecum and rectum with surrounding inflammatory change for which acute hemorrhage is suspected. Labs Labs: Laboratory Results - last 24 hr 04/24/25 04/25/25 19:11 05:19 WBC 11.2 H RBC 4.06 L Hgb 11.9 L Hct 37.6 L MCV 92.6 MCH 29.3 MCHC 31.6 L RDW 15.8 H Plt Count 342 MPV 10.1 Immature Gran % (Auto) 0.4 Neut % (Auto) 57.4 Lymph % (Auto) 22.3 [place] % (Auto) 9.7 H Eos % (Auto) 9.2 H Baso % (Auto) 1.0 Lymph # (Auto) 2.49 [place] # (Auto) 1.1 H Eos # (Auto) 1.0 H Baso # (Auto) 0.1 Abs Immat Gran (auto) 0.04 H Absolute Neuts (auto) 6.4 Absolute Nucleated RBC 0.000 Nucleated RBC % 0.0 Sodium 136 L Potassium 3.8 Chloride 107 Carbon Dioxide 23 Anion Gap 6 BUN 17 Creatinine 1.06 Estim Creat Clear Calc 103 Estimated GFR > 60 Glucose 103 Calcium 8.5 Magnesium 2.2 Total Bilirubin 0.8 AST 31 ALT 22 Alkaline Phosphatase 80 Total Protein 6.6 Albumin 3.4 L TPMT Activity, Quant Cancelled Hep Bs Antigen Negative
[2025-04-26] VITALS (9 sets, daily range): BP systolic 111–122; BP diastolic 61–75; PULSE 88–131; RESP 18–20; TEMP 36.9–37; O2SAT 97–98
[2025-04-26 06:07] LABS: Basophils Absolute Auto 0.1 K/mm3 (0.0-0.1); Basophils Percent Auto 0.6 % (0.2-1.2); Eosinophils Absolute Auto 0.4 K/mm3 (0-0.3); Eosinophils Percent Auto 2.7 % (0-4.4); Hematocrit 36.9 % (42.0-52.0); Hemoglobin 11.8 g/dL (14.0-18.0); Immature Granulocyte Absolute 0.09 K/mm3 (0.00-0.031); Immature Granulocyte Percent A 0.6 % (0-0.5); Lymphocytes Percent Auto 25.5 % (18.3-44.2); Mean Corpuscular Hemoglobin 29.6 pg (26-34); Mean Corpuscular Volume 92.5 fl (80-100); Mean Platelet Volume 10.3 fl (7.4-10.4); Monocytes Absolute Auto 1.5 K/mm3 (0.1-0.6); Monocytes Percent Auto 9.2 % (2.6-8.5); Neutrophils Absolute Auto 9.9 K/mm3 (1.3-6.7); Neutrophils Percent Auto 61.4 % (45.5-73.1); Platelet Count Result 349 k/mm3 (150-375); Red Blood Count 3.99 M/mm3 (4.6-6.20); Red Cell Distribution Width 15.6 % (11.5-14.5); White Blood Count 16.1 K/mm3 (4.5-10.0)
[2025-04-26 06:23] LABS: Alanine Aminotransferase 23 U/L (6-50); Albumin Level 3.7 g/dL (3.5-5.1); Alkaline Phosphatase 80 U/L (38-126); Anion Gap 7 mmol/L (4-12); Aspartate Amino Transferase 30 U/L (17-59); Bilirubin,Total 0.5 mg/dL (0.2-1.3); Blood Urea Nitrogen 15 mg/dL (9-20); Calcium 8.7 mg/dL (8.4-10.2); Carbon Dioxide 24 mmol/L (22-30); Chloride 106 mmol/L (98-107); Estimated CRCL calculation 105 ml/min; Estimated Glomerular Filt Rate > 60; Glucose 106 mg/dL (65-110); Magnesium 2.2 mg/dL (1.6-2.3); Potassium 3.7 mmol/L (3.4-5.0); Sodium 137 mmol/L (137-145); Total Protein 7.1 g/dL (6.3-8.2)
--- NOTE | 2025-04-26 07:27 | P.PNIM_ITS ---
Progress Note: A&P Assessment and Plan (1) Ulcerative colitis: Code(s): K51.90 - Ulcerative colitis, unspecified, without complications Status: Acute Assessment and Plan: 04/26 - Continues to have high disease severity expect several days to improvement. - Have ordered a dose of albendazole at GI recommendation - awaiting pharmacist in regards to availability. - Have verified ova/parasites has been collected and is pending. Collection on 04/24. (2) Acute GI bleeding: Code(s): K92.2 - Gastrointestinal hemorrhage, unspecified Status: Acute Assessment and Plan: * Stable H&H. * Will hold Xarelto for tonight, however since patient does have new onset AFib would recommend restarting tomorrow if no plan for GI lab. * Labs reviewed from ER and C diff is negative. * CT abdomen pelvis independently reviewed by this provider that shows an increased attenuation within the cecum in the rectum with surrounding inflammatory change for which acute hemorrhage suspected. * NPO after midnight * Trended monitor labs and vital signs. * Flagyl and Levaquin initiated. * Stool culture obtained given diarrhea * GI consult * Colonoscopy planned for today 04/25 * Stable hgb, still having blood in stools. GI consulting, appreciate recs. 04/26 * Stable hgb. * Unable to resume anticoag at this time. Prefer to resume as soon as reasonable, higher risk patient. * Have discussed with GI at bedside. Will continue to monitor in hospital until severity improves of underlying UC. (3) Atrial fibrillation with rapid ventricular response: Code(s): I48.91 - Unspecified atrial fibrillation Status: Acute Assessment and Plan: * New onset * ECHO ordered * No Cardizem drip, remains in Fib, but currently rate controlled after a push of Cardizem. * Telemetry * Pt on Xarelto chronically, but is concerned for acute GI Bleed at this time. Will hold Xarelto until GI can see and evaluate tomorrow. * Trend labs and VS. * Check thyroid labs * Cardiac consult pending, appreciate recommendations * Currently on PO Diltiazem 30mg PO q6hr 04/25 * Currently on PO Diltiazem 30mg PO q6hr and control is suboptimal. Increase to 60mg q6h. * Unable to resume anticoag at this time. Prefer to resume as soon as reasonable, higher risk patient. 04/26 * Currently on PO Diltiazem, increased from 30-60mg q6h yesterday. Rate control is improved, cardiology has changed to [place]. * Change to 360mg CD daily. 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 * Appreciate cardiology recs. (4) Chronic anticoagulation: Code(s): Z79.01 - correction (current) use of anticoagulants Status: Chronic Assessment and Plan: * Secondary to history of DVT * Patient takes Xarelto 10 mg daily * Holding Xarelto for colonoscopy 04/25 * I have concern for his recurrent VTE, he states 2-3 VTE in the lower extremities without any underlying etiology in his history - no prior hereditary thrombophilia workup. Outpatient hematology consultation would likely be of benefit. Could consider an IVC filter if does not have the ability to resume anticoagulation in near future. 04/26 * See prior, as noted low threshold for IVC filter if unable to resume anticoag. Outpatient hematology referral would be beneficial. (5) Obesity, morbid, BMI 40.0-49.9: Code(s): E66.01 - Morbid (severe) obesity due to excess calories Status: Chronic Assessment and Plan: * Recommend lifestyle changes at discharge (6) History of deep vein thrombosis: Code(s): Z86.718 - Personal history of other venous thrombosis and embolism Status: Inactive Assessment and Plan: * Old history 04/25 * See above. (7) Leukocytosis: Code(s): D72.829 - Elevated white blood cell count, unspecified Status: Acute Assessment and Plan: 04/26 * Mild leukocytosis with uptrending count this am - suspect 2/2 steroid administration - no fevers. * Plan Catalina Springer is a 60 year old male with several weeks of hematochezia with findings of UC on workup from GI this admission. Additionally found to have atrial fib with improving rate control. Plan to continue treatment for both of the above and expect 24 further hours of care. UC disease severity remains high, precluding discharge at this time. GI is consulting and last note reviewed with plan to monitor over course of weekend. Time Spent With Patient Time with patient: 25 - 35 minutes Subjective Date/time seen: 04/26/25 07:27 Interval history: Catalina states still having frequent bloody bowel movements, but decreased abd. pain. Review of Systems Review of Systems: 04/25: Does note has been taking ivermect in at home for suspected parasitic infection. All systems reviewed & are unremarkable except as noted in HPI and below Exam Narrative: GENERAL APPEARANCE: Appears to be in no acute distress. HEAD: normocephalic atraumatic EYES: EOMI. Vision grossly intact. ENT: Hearing grossly intact, no nasal discharge NECK: Neck supple, trachea midline. CARDIAC: Normal S1/S2. Rhythm is regular. No murmurs, rubs, or gallops. No cyanosis or pallor. Extremities are warm and well perfused. LUNGS: Clear to auscultation without rales, rhonchi, wheezing or diminished breath sounds. Respirations even and unlabored. ABDOMEN: BS positive x 4 quadrants. Soft, nondistended, nontender. No guarding or rebound. MSK: No joint tenderness/swelling, fair strength in all extremities. PERIPHERAL VASCULAR: No edema. NEURO: Follows commands. No focal deficits. SKIN: [place] without lesions or eruptions. PSYCH: Stable, no paranoia or delusional thinking. Objective Data Vital Signs Vital Signs: Vital Signs - 24 hr 04/25/25 08:00 04/25/25 08:04 04/25/25 09:45 Temperature 97.8 F Pulse Rate 117 H 98 Respiratory Rate 18 Blood Pressure 118/74 Pulse Oximetry 96 Oxygen Delivery Room Air Fraction of Inspired Oxygen 04/25/25 12:05 04/25/25 16:00 04/25/25 16:04 Temperature 98.2 F Pulse Rate 104 H 101 H 101 H Respiratory Rate 18 Blood Pressure 112/75 Pulse Oximetry 99 Oxygen Delivery Fraction of Inspired Oxygen 04/25/25 19:52 04/25/25 20:00 04/25/25 20:00 Temperature 98.6 F Pulse Rate 104 H 98 94 Respiratory Rate 20 Blood Pressure 136/76 Pulse Oximetry 96 97 Oxygen Delivery Room Air Fraction of Inspired Oxygen 21 04/26/25 00:00 04/26/25 04:00 Temperature Pulse Rate 88 95 Respiratory Rate Blood Pressure Pulse Oximetry Oxygen Delivery Fraction of Inspired Oxygen Intake/Output Intake/Output: Intake & Output 04/23/25 04/24/25 04/25/25 04/26/25 23:59 23:59 23:59 23:59 Intake Total 2645 2295 2060 Balance 2645 2295 2060 Meds/Results Medications: Active Medications Generic Name Dose Route Start Last Admin Trade Name Freq PRN Reason Stop Dose Admin Acetaminophen 650 mg 04/23/25 17:41 Acetaminophen 325 Mg Tablet PO Q4H PRN Mild Pain (1-3) or Fever Atorvastatin Calcium 40 mg 04/24/25 18:00 04/25/25 17:55 Atorvastatin 40 Mg Tablet PO 40 mg QPM MERLY Administration Diltiazem HCl 360 mg 04/26/25 09:00 Diltiazem Hcl Cd 180 Mg Cap.24hr PO QAM MERLY Hydrochlorothiazide 12.5 mg 04/25/25 09:00 04/25/25 09:53 Hydrochlorothiazide 12.5 Mg Capsule PO 12.5 mg QAM MERLY Administration Lisinopril 10 mg 04/25/25 09:00 04/25/25 09:53 Lisinopril 10 Mg Tablet PO 10 mg QAM MERLY Administration Mesalamine 1,600 mg 04/24/25 17:00 04/25/25 17:55 Mesalamine 400 Mg Delayed Release Capsule PO 1,600 mg TID [facility] Administration Perflutren Lipid Microsphere 0 ml 04/23/25 20:19 Perflutren Lipid Microspheres 1.5 Ml Vial Diluted To 10 Ml Total Volume IV PUSH 04/26/25 20:19 ONCE PRN adequate visualization Protocol Prednisone 40 mg 04/25/25 08:00 04/25/25 09:53 Prednisone 20 Mg Tablet PO 40 mg DAILY@0800 [facility] Administration Rivaroxaban 20 mg 04/25/25 09:00 04/25/25 09:56 Rivaroxaban 10 Mg Tablet PO 05/29/25 09:01 Not Given DAILY [facility] Radiology Results: ITS Impressions Abdomen/Pelvis CT 04/23/25 16:13 IMPRESSION: Increased attenuation within the cecum and rectum with surrounding inflammatory change for which acute hemorrhage is suspected. Labs Labs: Laboratory Results - last 24 hr 04/24/25 04/26/25 19:11 05:15 WBC 16.1 H RBC 3.99 L Hgb 11.8 L Hct 36.9 L MCV 92.5 MCH 29.6 MCHC 32.0 RDW 15.6 H Plt Count 349 MPV 10.3 Immature Gran % (Auto) 0.6 H Neut % (Auto) 61.4 Lymph % (Auto) 25.5 [place] % (Auto) 9.2 H Eos % (Auto) 2.7 Baso % (Auto) 0.6 Lymph # (Auto) 4.10 H [place] # (Auto) 1.5 H Eos # (Auto) 0.4 H Baso # (Auto) 0.1 Abs Immat Gran (auto) 0.09 H Absolute Neuts (auto) 9.9 H Absolute Nucleated RBC 0.000 Nucleated RBC % 0.0 Sodium 137 Potassium 3.7 Chloride 106 Carbon Dioxide 24 Anion Gap 7 BUN 15 Creatinine 1.04 Estim Creat Clear Calc 105 Estimated GFR > 60 Glucose 106 Calcium 8.7 Magnesium 2.2 Total Bilirubin 0.5 AST 30 ALT 23 Alkaline Phosphatase 80 Total Protein 7.1 Albumin 3.7 TPMT Activity, Quant Cancelled Quality VTE Prophylaxis VTE prophylaxis: mechanical ordered If No VTE Prophylaxis Answer both mechanical and pharmacologic: Reason no pharmacologic proph: medical contraindication Hospitalist MIPS Advance Care Plan I have confirmed that the patient's Advanced Care Plan is present, code status is documented, or surrogate decision maker is listed in patient medical record.: Yes Medication Reconciliation I have utilized all available resources to obtain, update and review the patients current medications (includes all prescriptions, OTC, herbals, cannabis, and nutritional supplements).: Yes
--- NOTE | 2025-04-26 09:10 | P.PNCA_ITS ---
Progress Note: A&P Assessment and Plan (1) Atrial fibrillation with rapid ventricular response: Code(s): I48.91 - Unspecified atrial fibrillation Status: Acute (2) Hypertension: Code(s): I10 - Essential (primary) hypertension Status: Acute (3) Hyperlipidemia: Code(s): E78.5 - Hyperlipidemia, unspecified Status: Acute Plan 60-year-old man with chronic DVTs bilaterally and now recently diagnosed ulcerative colitis along with new onset atrial fibrillation New onset atrial fibrillation -diltiazem 360 mg p.o. 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 Please call with additional questions. Subjective Date/time seen: 04/26/25 09:10 Interval history: No chest pain or shortness of breath. Continues to have bright red blood per rectum and in toilet Review of Systems Cardiovascular: Cardiovascular: Reports as per HPI Respiratory: Respiratory: Reports as per HPI Exam Const: General: comfortable HENMT: Mouth: Yes moist mucous membranes Eyes: EOM: EOMs intact bilaterally Neck: Neck: no JVD Resp: Effort & Inspection: normal respiratory effort Auscultation: clear to auscultation bilaterally Cardio: Rate: regular rate Rhythm: abnormal rhythm Extrem: General: no pedal edema Objective Data Vital Signs Vital Signs: Vital Signs - 24 hr 04/25/25 09:45 04/25/25 12:05 04/25/25 16:00 Temperature 36.8 C Pulse Rate 104 H 101 H Respiratory Rate 18 Blood Pressure 112/75 Pulse Oximetry 99 Oxygen Delivery Room Air Fraction of Inspired Oxygen 04/25/25 16:04 04/25/25 19:52 04/25/25 20:00 Temperature 37.0 C Pulse Rate 101 H 104 H 98 Respiratory Rate 20 Blood Pressure 136/76 Pulse Oximetry 96 97 Oxygen Delivery Room Air Fraction of Inspired Oxygen 21 04/25/25 20:00 04/26/25 00:00 04/26/25 04:00 Temperature Pulse Rate 94 88 95 Respiratory Rate Blood Pressure Pulse Oximetry Oxygen Delivery Fraction of Inspired Oxygen Intake/Output Intake/Output: Intake & Output 04/23/25 04/24/25 04/25/25 04/26/25 23:59 23:59 23:59 23:59 Intake Total 2645 2295 2059 Balance 2645 2294 2059 Meds/Results Medications: Active Medications Generic Name Dose Route Start Last Admin Trade Name Freq PRN Reason Stop Dose Admin Acetaminophen 650 mg 04/23/25 17:41 Acetaminophen 325 Mg Tablet PO Q4H PRN Mild Pain (1-3) or Fever Atorvastatin Calcium 40 mg 04/24/25 18:00 04/25/25 17:55 Atorvastatin 40 Mg Tablet PO 40 mg QPM MERLY Administration Diltiazem HCl 360 mg 04/26/25 09:00 Diltiazem Hcl Cd 180 Mg Cap.24hr PO QAM MERLY Hydrochlorothiazide 12.5 mg 04/25/25 09:00 04/25/25 09:53 Hydrochlorothiazide 12.5 Mg Capsule PO 12.5 mg QAM MERLY Administration Lisinopril 10 mg 04/25/25 09:00 04/25/25 09:53 Lisinopril 10 Mg Tablet PO 10 mg QAM MERLY Administration Mesalamine 1,600 mg 04/24/25 17:00 04/25/25 17:55 Mesalamine 400 Mg Delayed Release Capsule PO 1,600 mg TID [facility] Administration Perflutren Lipid Microsphere 0 ml 04/23/25 20:19 Perflutren Lipid Microspheres 1.5 Ml Vial Diluted To 10 Ml Total Volume IV PUSH 04/26/25 20:19 ONCE PRN adequate visualization Protocol Prednisone 40 mg 04/25/25 08:00 04/25/25 09:53 Prednisone 20 Mg Tablet PO 40 mg DAILY@0800 [facility] Administration Rivaroxaban 20 mg 04/25/25 09:00 04/25/25 09:56 Rivaroxaban 10 Mg Tablet PO 05/29/25 09:01 Not Given DAILY [facility] Radiology Results: ITS Impressions Abdomen/Pelvis CT 04/23/25 16:13 IMPRESSION: Increased attenuation within the cecum and rectum with surrounding inflammatory change for which acute hemorrhage is suspected. Labs Labs: Laboratory Results - last 24 hr 04/24/25 04/26/25 19:11 05:15 WBC 16.1 H RBC 3.99 L Hgb 11.8 L Hct 36.9 L MCV 92.5 MCH 29.6 MCHC 32.0 RDW 15.6 H Plt Count 349 MPV 10.3 Immature Gran % (Auto) 0.6 H Neut % (Auto) 61.4 Lymph % (Auto) 25.5 [place] % (Auto) 9.2 H Eos % (Auto) 2.7 Baso % (Auto) 0.6 Lymph # (Auto) 4.10 H [place] # (Auto) 1.5 H Eos # (Auto) 0.4 H Baso # (Auto) 0.1 Abs Immat Gran (auto) 0.09 H Absolute Neuts (auto) 9.9 H Absolute Nucleated RBC 0.000 Nucleated RBC % 0.0 Sodium 137 Potassium 3.7 Chloride 106 Carbon Dioxide 24 Anion Gap 7 BUN 15 Creatinine 1.04 Estim Creat Clear Calc 105 Estimated GFR > 60 Glucose 106 Calcium 8.7 Magnesium 2.2 Total Bilirubin 0.5 AST 30 ALT 23 Alkaline Phosphatase 80 Total Protein 7.1 Albumin 3.7 TPMT Activity, Quant Cancelled
--- NOTE | 2025-04-26 09:56 | P.PNGI_ITS ---
Progress Note: A&P Assessment and Plan (1) Ulcerative colitis: Code(s): K51.90 - Ulcerative colitis, unspecified, without complications Status: Acute Assessment and Plan: Yesterday, the patient had 9-10 bloody bowel movements, though he noted decreased abdominal pain apart from urgency. He continues to receive mesalamine 4.8g daily and prednisone 40mg daily. As this still qualifies as severe ulcerative colitis, we expect no significant improvement for at least 3-4 days of treatment. Considering his history of possible helminthic infection, a single 400mg dose of albendazole will be given. Xarelto will remain paused until his underlying ulcerative colitis is better controlled. Subjective Date/time seen: 04/26/25 09:56 Objective Data Vital Signs Vital Signs: Vital Signs - 24 hr 04/25/25 12:05 04/25/25 16:00 04/25/25 16:04 Temperature 98.2 F Pulse Rate 104 H 101 H 101 H Respiratory Rate 18 Blood Pressure 112/75 Pulse Oximetry 99 Oxygen Delivery Fraction of Inspired Oxygen 04/25/25 19:52 04/25/25 20:00 04/25/25 20:00 Temperature 98.6 F Pulse Rate 104 H 98 94 Respiratory Rate 20 Blood Pressure 136/76 Pulse Oximetry 96 97 Oxygen Delivery Room Air Fraction of Inspired Oxygen 21 04/26/25 00:00 04/26/25 04:00 Temperature Pulse Rate 88 95 Respiratory Rate Blood Pressure Pulse Oximetry Oxygen Delivery Fraction of Inspired Oxygen Intake/Output Intake/Output: Intake & Output 04/23/25 04/24/25 04/25/25 04/26/25 23:59 23:59 23:59 23:59 Intake Total 2645 2295 2060 Balance 2645 2295 2060 Meds/Results Medications: Active Medications Generic Name Dose Route Start Last Admin Trade Name Freq PRN Reason Stop Dose Admin Acetaminophen 650 mg 04/23/25 17:41 Acetaminophen 325 Mg Tablet PO Q4H PRN Mild Pain (1-3) or Fever Atorvastatin Calcium 40 mg 04/24/25 18:00 04/25/25 17:55 Atorvastatin 40 Mg Tablet PO 40 mg QPM MERLY Administration Diltiazem HCl 360 mg 04/26/25 09:00 Diltiazem Hcl Cd 180 Mg Cap.24hr PO QAM MERLY Hydrochlorothiazide 12.5 mg 04/25/25 09:00 04/25/25 09:53 Hydrochlorothiazide 12.5 Mg Capsule PO 12.5 mg QAM MERLY Administration Lisinopril 10 mg 04/25/25 09:00 04/25/25 09:53 Lisinopril 10 Mg Tablet PO 10 mg QAM MERLY Administration Mesalamine 1,600 mg 04/24/25 17:00 04/25/25 17:55 Mesalamine 400 Mg Delayed Release Capsule PO 1,600 mg TID [facility] Administration Perflutren Lipid Microsphere 0 ml 04/23/25 20:19 Perflutren Lipid Microspheres 1.5 Ml Vial Diluted To 10 Ml Total Volume IV PUSH 04/26/25 20:19 ONCE PRN adequate visualization Protocol Prednisone 40 mg 04/25/25 08:00 04/25/25 09:53 Prednisone 20 Mg Tablet PO 40 mg DAILY@0800 [facility] Administration Rivaroxaban 20 mg 04/25/25 09:00 04/25/25 09:56 Rivaroxaban 10 Mg Tablet PO Not Given DAILY [facility] Radiology Results: ITS Impressions Abdomen/Pelvis CT 04/23/25 16:13 IMPRESSION: Increased attenuation within the cecum and rectum with surrounding inflammatory change for which acute hemorrhage is suspected. Labs Labs: Laboratory Results - last 24 hr 04/24/25 04/26/25 19:11 05:15 WBC 16.1 H RBC 3.99 L Hgb 11.8 L Hct 36.9 L MCV 92.5 MCH 29.6 MCHC 32.0 RDW 15.6 H Plt Count 349 MPV 10.3 Immature Gran % (Auto) 0.6 H Neut % (Auto) 61.4 Lymph % (Auto) 25.5 [place] % (Auto) 9.2 H Eos % (Auto) 2.7 Baso % (Auto) 0.6 Lymph # (Auto) 4.10 H [place] # (Auto) 1.5 H Eos # (Auto) 0.4 H Baso # (Auto) 0.1 Abs Immat Gran (auto) 0.09 H Absolute Neuts (auto) 9.9 H Absolute Nucleated RBC 0.000 Nucleated RBC % 0.0 Sodium 137 Potassium 3.7 Chloride 106 Carbon Dioxide 24 Anion Gap 7 BUN 15 Creatinine 1.04 Estim Creat Clear Calc 105 Estimated GFR > 60 Glucose 106 Calcium 8.7 Magnesium 2.2 Total Bilirubin 0.5 AST 30 ALT 23 Alkaline Phosphatase 80 Total Protein 7.1 Albumin 3.7 TPMT Activity, Quant Cancelled
[2025-04-26] MEDS: MESALAMINE 400 MG DELAYED RELEASE CAPSULE 1600 MG PO ×3 (10:11→17:39)
[2025-04-26] MEDS: predniSONE 20 MG TABLET 40 MG PO (10:11)
[2025-04-26] MEDS: dilTIAZem HCL CD 180 MG CAP.24HR 360 MG PO (10:12)
[2025-04-26] MEDS: lisinopriL 10 MG TABLET PO (10:12)
[2025-04-26] MEDS: hydroCHLOROthiazide 12.5 MG CAPSULE PO (10:12)
[2025-04-26] MEDS: ATORVASTATIN 40 MG TABLET PO (17:39)
[2025-04-27] VITALS: PULSE 82
[2025-04-27 04:00] VITALS: PULSE 71
[2025-04-27 06:00] VITALS: BP 115/69; PULSE 81; RESP 20; TEMP 36.6; O2SAT 98
[2025-04-27 06:25] LABS: Basophils Absolute Auto 0.1 K/mm3 (0.0-0.1); Basophils Percent Auto 0.6 % (0.2-1.2); Eosinophils Absolute Auto 0.3 K/mm3 (0-0.3); Eosinophils Percent Auto 1.6 % (0-4.4); Hematocrit 39.7 % (42.0-52.0); Hemoglobin 12.6 g/dL (14.0-18.0); Immature Granulocyte Absolute 0.11 K/mm3 (0.00-0.031); Immature Granulocyte Percent A 0.6 % (0-0.5); Lymphocytes Absolute Auto 4.84 K/mm3 (0.9-3.2); Lymphocytes Percent Auto 27.3 % (18.3-44.2); Mean Corpuscular HGB Conc 31.7 g/dl (32-36); Mean Corpuscular Hemoglobin 29.4 pg (26-34); Mean Corpuscular Volume 92.5 fl (80-100); Mean Platelet Volume 10.1 fl (7.4-10.4); Monocytes Absolute Auto 1.4 K/mm3 (0.1-0.6); Monocytes Percent Auto 7.8 % (2.6-8.5); Neutrophils Percent Auto 62.1 % (45.5-73.1); Platelet Count Result 370 k/mm3 (150-375); Red Blood Count 4.29 M/mm3 (4.6-6.20); Red Cell Distribution Width 15.9 % (11.5-14.5); White Blood Count 17.7 K/mm3 (4.5-10.0)
[2025-04-27 06:43] LABS: Alanine Aminotransferase 30 U/L (6-50); Albumin Level 3.7 g/dL (3.5-5.1); Alkaline Phosphatase 78 U/L (38-126); Anion Gap 11 mmol/L (4-12); Aspartate Amino Transferase 34 U/L (17-59); Bilirubin,Total 0.5 mg/dL (0.2-1.3); Blood Urea Nitrogen 14 mg/dL (9-20); Carbon Dioxide 24 mmol/L (22-30); Chloride 105 mmol/L (98-107); Estimated CRCL calculation 99 ml/min; Estimated Glomerular Filt Rate > 60; Glucose 93 mg/dL (65-110); Magnesium 2.2 mg/dL (1.6-2.3); Potassium 3.9 mmol/L (3.4-5.0); Sodium 140 mmol/L (137-145); Total Protein 7.3 g/dL (6.3-8.2)
[2025-04-27 07:14] LABS: Atypical Lymphocytes Present; Platelet Estimate Adequate (Adequate); Schistocytes None Seen
--- NOTE | 2025-04-27 07:19 | P.PNIM_ITS ---
Progress Note: A&P Assessment and Plan (1) Ulcerative colitis: Code(s): K51.90 - Ulcerative colitis, unspecified, without complications Status: Acute Assessment and Plan: 04/26 - Continues to have high disease severity expect several days to improvement. - Have ordered a dose of albendazole at GI recommendation - awaiting pharmacist in regards to availability. - Have verified ova/parasites has been collected and is pending. Collection on 04/24. 04/27 - Some improvement in frequency. - Awaiting pharmacy recs for available antiparasitic options on hospital formulary, appears albendazole not available. - O/P Pending, e. coli/shiga/salmonella, campylobacter assays pending. (2) Acute GI bleeding: Code(s): K92.2 - Gastrointestinal hemorrhage, unspecified Status: Acute Assessment and Plan: * Stable H&H. * Will hold Xarelto for tonight, however since patient does have new onset AFib would recommend restarting tomorrow if no plan for GI lab. * Labs reviewed from ER and C diff is negative. * CT abdomen pelvis independently reviewed by this provider that shows an increased attenuation within the cecum in the rectum with surrounding inflammatory change for which acute hemorrhage suspected. * NPO after midnight * Trended monitor labs and vital signs. * Flagyl and Levaquin initiated. * Stool culture obtained given diarrhea * GI consult * Colonoscopy planned for today 04/25 * Stable hgb, still having blood in stools. GI consulting, appreciate recs. 04/26 * Stable hgb. * Unable to resume anticoag at this time. Prefer to resume as soon as reasonable, higher risk patient. * Have discussed with GI at bedside. Will continue to monitor in hospital until severity improves of underlying UC. 04/27 - Stable hgb. (3) Atrial fibrillation with rapid ventricular response: Code(s): I48.91 - Unspecified atrial fibrillation Status: Acute Assessment and Plan: * New onset * ECHO ordered * No Cardizem drip, remains in Fib, but currently rate controlled after a push of Cardizem. * Telemetry * Pt on Xarelto chronically, but is concerned for acute GI Bleed at this time. Will hold Xarelto until GI can see and evaluate tomorrow. * Trend labs and VS. * Check thyroid labs * Cardiac consult pending, appreciate recommendations * Currently on PO Diltiazem 30mg PO q6hr 04/25 * Currently on PO Diltiazem 30mg PO q6hr and control is suboptimal. Increase to 60mg q6h. * Unable to resume anticoag at this time. Prefer to resume as soon as reasonable, higher risk patient. 04/26 * Currently on PO Diltiazem, increased from 30-60mg q6h yesterday. Rate control is improved, cardiology has changed to LA. * Change to 360mg CD daily. 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 * Appreciate cardiology recs. 04/27 - Rate 70s-80s on 360mg cardizem cd - Anticoag unncecessary for afib with chads vasac 1. Appreciate cardiology recs. 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 Outpatient hematology consultation would likely be of benefit. Could consider an IVC filter if does not have the ability to resume anticoagulation in near future. 04/26 * See prior, as noted low threshold for IVC filter if unable to resume anticoag. Outpatient hematology referral would be beneficial. 04/27 - As noted, consider outpatient hematology if unable to resume anticoag. Cardiology recommends workup February/Melissa o/p. (5) Obesity, morbid, BMI 40.0-49.9: Code(s): E66.01 - Morbid (severe) obesity due to excess calories Status: Chronic Assessment and Plan: * Recommend lifestyle changes at discharge (6) History of deep vein thrombosis: Code(s): Z86.718 - Personal history of other venous thrombosis and embolism Status: Inactive Assessment and Plan: * Old history 04/25 * See above. (7) Leukocytosis: Code(s): D72.829 - Elevated white blood cell count, unspecified Status: Acute Assessment and Plan: 04/26 * Mild leukocytosis with uptrending count this am - suspect 2/2 steroid administration - no fevers. 04/27 - Slight uptrend, no fevers, likely steroid induced. Plan Catalina Springer is a 60 year old male with several weeks of hematochezia with findings of UC on workup from GI this admission. Additionally found to have atrial fib with improving rate control. Atrial fib much improved rate. UC severity improving. Time Spent With Patient Time with patient: 25 - 35 minutes Subjective Date/time seen: 04/27/25 07:19 Review of Systems Review of Systems: All systems reviewed & are unremarkable except as noted in HPI and below Exam Narrative: GENERAL APPEARANCE: Appears to be in no acute distress. HEAD: normocephalic atraumatic EYES: EOMI. Vision grossly intact. ENT: Hearing grossly intact, no nasal discharge NECK: Neck supple, trachea midline. CARDIAC: Normal S1/S2. Rhythm is regular. No murmurs, rubs, or gallops. No cyanosis or pallor. Extremities are warm and well perfused. LUNGS: Clear to auscultation without rales, rhonchi, wheezing or diminished breath sounds. Respirations even and unlabored. ABDOMEN: BS positive x 4 quadrants. Soft, nondistended, nontender. No guarding or rebound. MSK: No joint tenderness/swelling, fair strength in all extremities. PERIPHERAL VASCULAR: No edema. NEURO: Follows commands. No focal deficits. SKIN: [place] without lesions or eruptions. PSYCH: Stable, no paranoia or delusional thinking. Objective Data Vital Signs Vital Signs: Vital Signs - 24 hr 04/26/25 08:00 04/26/25 10:10 04/26/25 12:00 Temperature Pulse Rate 95 131 H Respiratory Rate Blood Pressure Pulse Oximetry 97 Oxygen Delivery Room Air 04/26/25 14:00 04/26/25 16:00 04/26/25 20:00 Temperature 98.4 F Pulse Rate 100 92 88 Respiratory Rate 18 Blood Pressure 111/75 Pulse Oximetry 97 Oxygen Delivery 04/26/25 22:05 04/27/25 00:00 04/27/25 04:00 Temperature 98.6 F Pulse Rate 93 82 71 Respiratory Rate 20 Blood Pressure 122/61 Pulse Oximetry 98 Oxygen Delivery Intake/Output Intake/Output: Intake & Output 04/24/25 04/25/25 04/26/25 04/27/25 23:59 23:59 23:59 23:59 Intake Total 2295 2060 1730 Balance [id number] Meds/Results Medications: Active Medications Generic Name Dose Route Start Last Admin Trade Name Freq PRN Reason Stop Dose Admin Acetaminophen 650 mg 04/23/25 17:41 Acetaminophen 325 Mg Tablet PO Q4H PRN Mild Pain (1-3) or Fever Atorvastatin Calcium 40 mg 04/24/25 18:00 04/26/25 17:39 Atorvastatin 40 Mg Tablet PO 40 mg QPM MERLY Administration Diltiazem HCl 360 mg 04/26/25 09:00 04/26/25 10:12 Diltiazem Hcl Cd 180 Mg Cap.24hr PO 360 mg QAM MERLY Administration Hydrochlorothiazide 12.5 mg 04/25/25 09:00 04/26/25 10:12 Hydrochlorothiazide 12.5 Mg Capsule PO 12.5 mg QAM MERLY Administration Lisinopril 10 mg 04/25/25 09:00 04/26/25 10:12 Lisinopril 10 Mg Tablet PO 10 mg QAM MERLY Administration Mesalamine 1,600 mg 04/24/25 17:00 04/26/25 17:39 Mesalamine 400 Mg Delayed Release Capsule PO 1,600 mg TID MERLY Administration Prednisone 40 mg 04/25/25 08:00 04/26/25 10:11 Prednisone 20 Mg Tablet PO 40 mg DAILY@0800 MERLY Administration Radiology Results: ITS Impressions Abdomen/Pelvis CT 04/23/25 16:13 IMPRESSION: Increased attenuation within the cecum and rectum with surrounding inflammatory change for which acute hemorrhage is suspected. Labs Labs: Laboratory Results - last 24 hr 04/27/25 06:09 WBC 17.7 H RBC 4.29 L Hgb 12.6 L Hct 39.7 L MCV 92.5 MCH 29.4 MCHC 31.7 L RDW 15.9 H Plt Count 370 MPV 10.1 Immature Gran % (Auto) 0.6 H Neut % (Auto) 62.1 Lymph % (Auto) 27.3 [place] % (Auto) 7.8 Eos % (Auto) 1.6 Baso % (Auto) 0.6 Lymph # (Auto) 4.84 H [place] # (Auto) 1.4 H Eos # (Auto) 0.3 Baso # (Auto) 0.1 Abs Immat Gran (auto) 0.11 H Absolute Neuts (auto) 11.0 H Absolute Nucleated RBC 0.000 Band Neutrophils % Not Reportable Nucleated RBC % 0.0 Atypical Lymphocytes Present Platelet Estimate Adequate Schistocytes None seen Sodium 140 Potassium 3.9 Chloride 105 Carbon Dioxide 24 Anion Gap 11 BUN 14 Creatinine 1.11 Estim Creat Clear Calc 99 Estimated GFR > 60 Glucose 93 Calcium 9.0 Magnesium 2.2 Total Bilirubin 0.5 AST 34 ALT 30 Alkaline Phosphatase 78 Total Protein 7.3 Albumin 3.7 Quality VTE Prophylaxis VTE prophylaxis: mechanical ordered If No VTE Prophylaxis Answer both mechanical and pharmacologic: Reason no pharmacologic proph: medical contraindication Hospitalist MIPS Advance Care Plan I have confirmed that the patient's Advanced Care Plan is present, code status is documented, or surrogate decision maker is listed in patient medical record.: Yes Medication Reconciliation I have utilized all available resources to obtain, update and review the patients current medications (includes all prescriptions, OTC, herbals, cannabis, and nutritional supplements).: Yes
--- NOTE | 2025-04-27 07:25 | WPDGIPROGNO ---
Progress Note: A&P Assessment and Plan (1) Ulcerative colitis: Code(s): K51.90 - Ulcerative colitis, unspecified, without complications Status: Acute Assessment and Plan: Patient with new onset ulcerative colitis, responding favorably to prednisone 40 mg and mesalamine 4.8 g/d Will send on same dosage, I will see him for follow-up in 1 month. Patient instructed not to modify doses on his own. Subjective Date/time seen: 04/27/25 07:25 Interval history: The patient had a total of 3-4 bowel movements yesterday, still bloody but with less urgency and no abdominal pain. He feels overall much better. Objective Data Vital Signs Vital Signs: Vital Signs - 24 hr 04/26/25 08:00 04/26/25 10:10 04/26/25 12:00 Temperature Pulse Rate 95 131 H Respiratory Rate Blood Pressure Pulse Oximetry 97 Oxygen Delivery Room Air 04/26/25 14:00 04/26/25 16:00 04/26/25 20:00 Temperature 98.4 F Pulse Rate 100 92 88 Respiratory Rate 18 Blood Pressure 111/75 Pulse Oximetry 97 Oxygen Delivery 04/26/25 22:05 04/27/25 00:00 04/27/25 04:00 Temperature 98.6 F Pulse Rate 93 82 71 Respiratory Rate 20 Blood Pressure 122/61 Pulse Oximetry 98 Oxygen Delivery Intake/Output Intake/Output: Intake & Output 04/24/25 04/25/25 04/26/25 04/27/25 23:59 23:59 23:59 23:59 Intake Total 2295 2060 1730 Balance 2295 2060 1730 Meds/Results Medications: Active Medications Generic Name Dose Route Start Last Admin Trade Name Freq PRN Reason Stop Dose Admin Acetaminophen 650 mg 04/23/25 17:41 Acetaminophen 325 Mg Tablet PO Q4H PRN Mild Pain (1-3) or Fever Atorvastatin Calcium 40 mg 04/24/25 18:00 04/26/25 17:39 Atorvastatin 40 Mg Tablet PO 40 mg QPM MERLY Administration Diltiazem HCl 360 mg 04/26/25 09:00 04/26/25 10:12 Diltiazem Hcl Cd 180 Mg Cap.24hr PO 360 mg QAM MERLY Administration Hydrochlorothiazide 12.5 mg 04/25/25 09:00 04/26/25 10:12 Hydrochlorothiazide 12.5 Mg Capsule PO 12.5 mg QAM [facility] Administration Lisinopril 10 mg 04/25/25 09:00 04/26/25 10:12 Lisinopril 10 Mg Tablet PO 10 mg QAM [facility] Administration Mesalamine 1,600 mg 04/24/25 17:00 04/26/25 17:39 Mesalamine 400 Mg Delayed Release Capsule PO 1,600 mg TID MERLY Administration Prednisone 40 mg 04/25/25 08:00 04/26/25 10:11 Prednisone 20 Mg Tablet PO 40 mg DAILY@0800 MERLY Administration Radiology Results: ITS Impressions Abdomen/Pelvis CT 04/23/25 16:13 IMPRESSION: Increased attenuation within the cecum and rectum with surrounding inflammatory change for which acute hemorrhage is suspected. Labs Labs: Laboratory Results - last 24 hr 04/27/25 06:09 WBC 17.7 H RBC 4.29 L Hgb 12.6 L Hct 39.7 L MCV 92.5 MCH 29.4 MCHC 31.7 L RDW 15.9 H Plt Count 370 MPV 10.1 Immature Gran % (Auto) 0.6 H Neut % (Auto) 62.1 Lymph % (Auto) 27.3 [place] % (Auto) 7.8 Eos % (Auto) 1.6 Baso % (Auto) 0.6 Lymph # (Auto) 4.84 H [place] # (Auto) 1.4 H Eos # (Auto) 0.3 Baso # (Auto) 0.1 Abs Immat Gran (auto) 0.11 H Absolute Neuts (auto) 11.0 H Absolute Nucleated RBC 0.000 Band Neutrophils % Not Reportable Nucleated RBC % 0.0 Atypical Lymphocytes Present Platelet Estimate Adequate Schistocytes None seen Sodium 140 Potassium 3.9 Chloride 105 Carbon Dioxide 24 Anion Gap 11 BUN 14 Creatinine 1.11 Estim Creat Clear Calc 99 Estimated GFR > 60 Glucose 93 Calcium 9.0 Magnesium 2.2 Total Bilirubin 0.5 AST 34 ALT 30 Alkaline Phosphatase 78 Total Protein 7.3 Albumin 3.7
[2025-04-27] MEDS: dilTIAZem HCL CD 180 MG CAP.24HR 360 MG PO (08:50)
[2025-04-27] MEDS: predniSONE 20 MG TABLET 40 MG PO (08:50)
[2025-04-27] MEDS: lisinopriL 10 MG TABLET PO (08:50)
[2025-04-27] MEDS: hydroCHLOROthiazide 12.5 MG CAPSULE PO (08:50)
[2025-04-27] MEDS: MESALAMINE 400 MG DELAYED RELEASE CAPSULE 1600 MG PO (08:50)
--- NOTE | 2025-04-27 09:28 | P.DS_ITS ---
DS: Admitting Diagnosis Discharge Date 04/27/25 Admitting Diagnosis atrial fibrillation with rvr, GI Bleeding, KEITH, obesity, chronic anticoagulation, history dvt DS: Discharge Diagnosis Discharge Diagnosis (1) Ulcerative colitis: Code(s): K51.90 - Ulcerative colitis, unspecified, without complications Status: Acute Assessment and Plan: 04/26 - Continues to have high disease severity expect several days to improvement. - Have ordered a dose of albendazole at GI recommendation - awaiting pharmacist in regards to availability. - Have verified ova/parasites has been collected and is pending. Collection on 04/24. 04/27 - Improvement in frequency. - Awaiting pharmacy recs for available antiparasitic options on hospital formulary, appears albendazole not available. Will send in RX o/p. - O/P Pending, e. coli/shiga/salmonella, campylobacter assays pending. - Will see GI o/p one month, cont. current med doses until then - have verified with Dr. Naik. (2) Acute GI bleeding: Code(s): K92.2 - Gastrointestinal hemorrhage, unspecified Status: Acute Assessment and Plan: * Stable H&H. * Will hold Xarelto for tonight, however since patient does have new onset AFib would recommend restarting tomorrow if no plan for GI lab. * Labs reviewed from ER and C diff is negative. * CT abdomen pelvis independently reviewed by this provider that shows an increased attenuation within the cecum in the rectum with surrounding inflammatory change for which acute hemorrhage suspected. * NPO after midnight * Trended monitor labs and vital signs. * Flagyl and Levaquin initiated. * Stool culture obtained given diarrhea * GI consult * Colonoscopy planned for today 04/25 * Stable hgb, still having blood in stools. GI consulting, appreciate recs. 04/26 * Stable hgb. * Unable to resume anticoag at this time. Prefer to resume as soon as reasonable, higher risk patient. * Have discussed with GI at bedside. Will continue to monitor in hospital until severity improves of underlying UC. 04/27 - Stable hgb. Cont. to hold xarelto while actively bleeding. Will arrange for close o/p primary care to initate workup for hereditary thrombophilias, Lula Melissa, etc. (3) Atrial fibrillation with rapid ventricular response: Code(s): I48.91 - Unspecified atrial fibrillation Status: Acute Assessment and Plan: * New onset * ECHO ordered * No Cardizem drip, remains in Fib, but currently rate controlled after a push of Cardizem. * Telemetry * Pt on Xarelto chronically, but is concerned for acute GI Bleed at this time. Will hold Xarelto until GI can see and evaluate tomorrow. * Trend labs and VS. * Check thyroid labs * Cardiac consult pending, appreciate recommendations * Currently on PO Diltiazem 30mg PO q6hr 04/25 * Currently on PO Diltiazem 30mg PO q6hr and control is suboptimal. Increase to 60mg q6h. * Unable to resume anticoag at this time. Prefer to resume as soon as reasonable, higher risk patient. 04/26 * Currently on PO Diltiazem, increased from 30-60mg q6h yesterday. Rate control is improved, cardiology has changed to LA. * Change to 360mg CD daily. 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 * Appreciate cardiology recs. 04/27 - Rate 70s-80s on 360mg cardizem cd - Anticoag unncecessary for afib with chads vasac 1. Appreciate cardiology recs. - DC on new cardizem dose. 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 Outpatient hematology consultation would likely be of benefit. Could consider an IVC filter if does not have the ability to resume anticoagulation in near future. 04/26 * See prior, as noted low threshold for IVC filter if unable to resume anticoag. Outpatient hematology referral would be beneficial. 04/27 - As noted, consider outpatient hematology if unable to resume anticoag. Cardiology recommends workup February/Melissa o/p. (5) Obesity, morbid, BMI 40.0-49.9: Code(s): E66.01 - Morbid (severe) obesity due to excess calories Status: Chronic Assessment and Plan: * Recommend lifestyle changes at discharge (6) Leukocytosis: Code(s): D72.829 - Elevated white blood cell count, unspecified Status: Acute Assessment and Plan: 04/26 * Mild leukocytosis with uptrending count this am - suspect 2/2 steroid administration - no fevers. 04/27 - Slight uptrend, no fevers, likely steroid induced. Plan Catalina Springer is a 60 year old male with several weeks of hematochezia with findings of UC on workup from GI this admission. Additionally found to have atrial fib with improving rate control. Atrial fib much improved rate. UC severity improving. Will discharge with outpatient f/u PCP and GI. DS: Summary Hospital Course Reason for hospitalization: Afib rvr, GIB Hospital Course: Catalina Springer is a 60 year old male presenting with atrial fib with rvr and GIB. The atrial fibrillation is new. Rate control was successful with cardizem, now on dose of 360mg CD daily. Chads Vasc 1, no specific recommendation for full anticoagulation in this range. The GIB was 2/2 to newly diagnosed ulcerative colitis - which has been responding to prednisone and mesalamine. Outpatient f/u is to be arranged. In regards to his hx lower ext vte x 3, outpatient workup should be commenced. If he does not tolerate oral anticoag in light of his UC, perhaps consideration for IVC filter. Would recommend this to initiate out of PCP for [facility] continuity of care. On day of discharge Catalina is doing quite well and is in good spirits. He has a good appetite and denies abd. pain. Status at Discharge Cognitive/behavioral status at discharge: Baseline. Functional status at discharge: independent ambulation Overall status at discharge: patient is back to baseline Time Spent with Patient Time attestation: Total time spent providing and/or coordinating discharge services: Time spent: Greater than 30 minutes Exam Narrative: GENERAL APPEARANCE: Appears to be in no acute distress. HEAD: normocephalic atraumatic EYES: EOMI. Vision grossly intact. ENT: Hearing grossly intact, no nasal discharge NECK: Neck supple, trachea midline. CARDIAC: Normal S1/S2. Rhythm is regular. No murmurs, rubs, or gallops. No cyanosis or pallor. Extremities are warm and well perfused. LUNGS: Clear to auscultation without rales, rhonchi, wheezing or diminished breath sounds. Respirations even and unlabored. ABDOMEN: BS positive x 4 quadrants. Soft, nondistended, nontender. No guarding or rebound. MSK: No joint tenderness/swelling, fair strength in all extremities. PERIPHERAL VASCULAR: No edema. NEURO: Follows commands. No focal deficits. SKIN: [place] without lesions or eruptions. PSYCH: Stable, no paranoia or delusional thinking. DS: Data Data Completed and Pending Completed studies during hospitalization: CT abd/pelv Pending studies at discharge: Pending at discharge 04/24/25 15:04 Surgical [PTH] Routine Labs on day of discharge: Labs from last 24 hours 04/27/25 06:09 WBC 17.7 H RBC 4.29 L Hgb 12.6 L Hct 39.7 L MCV 92.5 MCH 29.4 MCHC 31.7 L RDW 15.9 H Plt Count 370 MPV 10.1 Immature Gran % (Auto) 0.6 H Neut % (Auto) 62.1 Lymph % (Auto) 27.3 [place] % (Auto) 7.8 Eos % (Auto) 1.6 Baso % (Auto) 0.6 Lymph # (Auto) 4.84 H [place] # (Auto) 1.4 H Eos # (Auto) 0.3 Baso # (Auto) 0.1 Abs Immat Gran (auto) 0.11 H Absolute Neuts (auto) 11.0 H Absolute Nucleated RBC 0.000 Band Neutrophils % Not Reportable Nucleated RBC % 0.0 Atypical Lymphocytes Present Platelet Estimate Adequate Schistocytes None seen Sodium 140 Potassium 3.9 Chloride 105 Carbon Dioxide 24 Anion Gap 11 BUN 14 Creatinine 1.11 Estim Creat Clear Calc 99 Estimated GFR > 60 Glucose 93 Calcium 9.0 Magnesium 2.2 Total Bilirubin 0.5 AST 34 ALT 30 Alkaline Phosphatase 78 Total Protein 7.3 Albumin 3.7 Imaging My impression: CT abd/pelvis Radiologist's impression: IMPRESSION: Increased attenuation within the cecum and rectum with surrounding inflammatory change for which acute hemorrhage is suspected. Discharge Plan Discharge Attending physician on discharge: Chano Wick Consulting providers: Bola Razo; Mone Bright Discharging Clinician: Cory Vincent Patient Disposition: Home Activity: may shower Diet: as tolerated Discharge Instructions: - Follow up with your primary care provider in the next 1-2 weeks. - Follow with GI at their recommendation. Call the number they have provided you. - Take all medications as prescribed. - If anything other than steady improvement please contact your PCP or seek evaluation urgently. - Please follow all discharge directions as written, call for any questions or need for clarification. - Thank you for choosing [facility] for your healthcare needs Patient Instructions: Antibiotic Form, Rivaroxaban (By mouth) Patient Language: Faroese Stand Alone Forms: General Discharge Information Follow-up/Referrals: Mone Bright, DIAL BRUSHER-C [Advanced Practice Nurse] - Kendall,ESTRELLITA Mcadams [Primary Care Provider] - 2 Weeks (New atrial fibrillati on, new UC - hx vte with GIB unable to anticoag - needs thrombophilia o/p workup initiated. ) Discharge Medications: New prednisone 20 mg Tablet 40 mg PO DAILY@0800 Qty: 60 0RF diltiazem HCl 180 mg Capsule,Ext.Rel 24h Degradable 360 mg PO QAM Qty: 30 0RF mesalamine [Delzicol] 400 mg Capsule (With Del Rel Tablets) 1,600 mg PO TID Qty: 90 0RF albendazole 200 mg tablet 400 mg PO ONCE Qty: 2 0RF Rx Instructions: Take 2 tablets, total of 400mg for one dose. Continued atorvastatin 40 mg tablet 40 mg PO QPM lisinopril-hydrochlorothiazide 10-12.5 mg tablet 1 tablet PO DAILY Held Xarelto 10 mg tablet 20 mg PO DAILY Hold Instructions: Hold until instructed to resume by primary care provider. Rx Instructions: for 35 days Date of admission: 04/25/25 16:00 Primary Care Provider: KendallJackie Admitting Provider: Orlando Bowden Attending physician on admission: Orlando Bowden Condition: Stable Quality VTE Prophylaxis VTE prophylaxis: mechanical ordered If No VTE Prophylaxis Answer both mechanical and pharmacologic: Reason no pharmacologic proph: medical contraindication
[2025-04-28 15:59] LABS: NIL 0.11 IU/mL; Quantiferon TB Plus, 1T NEGATIVE (NEGATIVE); TB1-NIL 0.02 IU/mL; TB2-NIL 0.03 IU/mL
[2025-04-30 16:19] LABS: TPMT Activity. 19
[2025-05-02 20:59] LABS: Calprotectin, Stool. 544 mcg/g
== END 2025-04-27 11:15 | disposition home or self-care (01) | DRG 386 ==
LOC: ANHED 14:56 → ANH3MEDSUR 18:42 → ANH3MED 20:14
PROVIDERS: Internal Medicine Gastroenterology; Nurse Practitioner Adult Health; Physician Assistant; Student in an Organized Health Care Education/Training Program; Admitting Provider Internal Medicine; Emergency Provider Emergency Medicine; PCP Physician Assistant; Visit Provider Nurse Practitioner Family
PROC: 0DJD8ZZ Inspection of Lower Intestinal Tract, Via Natural or Artificial Opening Endoscopic (ICD-10-PCS; CPT 45378; principal; 2025-04-24 15:00)
DX: K51.818 Other ulcerative colitis with other complication (principal); N17.9 Acute kidney failure, unspecified; Z68.41 Body mass index [BMI] 40.0-44.9, adult; K21.9 Gastro-esophageal reflux disease without esophagitis; I48.91 Unspecified atrial fibrillation; D72.829 Elevated white blood cell count, unspecified; E86.0 Dehydration; I10 Essential (primary) hypertension; E78.5 Hyperlipidemia, unspecified; J45.909 Unspecified asthma, uncomplicated; E66.01 Morbid (severe) obesity due to excess calories; Z79.01 Long term (current) use of anticoagulants; Z86.718 Personal history of other venous thrombosis and embolism; Z90.49 Acquired absence of other specified parts of digestive tract
CPT/HCPCS: 36415; 74177; 80053; 82657; 83605; 83735; 83993; 84443; 84484; 85014; 85018; 85025; 85610; 85730; 86140; 86480; 86850; 86900; 86901; 87045; 87177; 87209; 87340; 87427; 87449; 87493; 88305; 93005; 93306; 94762; 96361; 96365; 96375; 99285; A9270; G0378; J1836; J1956; J2003; J2371; J2704; J7030; J7120; J7512; Q9967